=== PATIENT | male | born 1965 | race Caucasian/White ===

== ENCOUNTER → 2017-09-26 | Outpatient (CLI) | payer OTHER ==
--- NOTE | 2017-09-27 14:40 | XR ---
EXAMINATION TYPE: XR lumbosacral spine min 4V DATE OF EXAM: 09/26/2017 COMPARISON: NONE HISTORY: Lumbago TECHNIQUE: Five-view lumbar spine FINDINGS: There 5 lumbar-type vertebral bodies. The pedicles are intact. Disc heights are preserved. Vertebral body heights are preserved. Alignment is normal. Facets are unremarkable. No spondylolytic defects are evident. Vascular calcification is within the aorta. IMPRESSION: 1. Normal 5 view lumbar spine
--- NOTE | 2017-09-27 14:53 | XR ---
EXAMINATION TYPE: XR cervical spine comp DATE OF EXAM: 09/26/2017 COMPARISON: NONE HISTORY: Cervicalgia TECHNIQUE: 5 view cervical spine supplemented with the submental vertex view FINDINGS: The odontoid is visualized appears normal. Examination is limited. The prevertebral space i s normal. Mild diffuse narrowing of disc height is preserved. Alignment is normal. Posterior spinal l amellar line is intact. There is limitation on evaluation of the foramen due to degree of rotation. IMPRESSION: 1. Mild diffuse degenerative changes within the cervical spine.
== END | disposition home or self-care (01) ==
LOC: RADXRMAIN 16:22
PROVIDERS: ATTEND Family Medicine
DX: M47.812 Spondylosis without myelopathy or radiculopathy, cervical region (principal); M54.5 Low back pain
CPT/HCPCS: 72050; 72110

== ENCOUNTER → 2017-12-29 | Outpatient (CLI) | payer OTHER ==
[2017-12-29 16:58] LABS: Basophils # (A) 0.1 k/uL (0-0.2); Basophils % (A) 1 %; Eosinophils # (A) 0.3 k/uL (0-0.7); Eosinophils % (A) 3 %; HCT 49.2 % (39.0-53.0); HGB 16.8 gm/dL (13.0-17.5); Lymphocytes # (A) 2.4 k/uL (1.0-4.8); Lymphocytes % (A) 26 %; MCHC 34.1 g/dL (31.0-37.0); Mean Platelet Volume 6.8; Monocytes # (A) 0.3 k/uL (0-1.0); Monocytes % (A) 4 %; Neutrophils # (A) 5.8 k/uL (1.3-7.7); Neutrophils % (A) 64 %; Platelet Count 240 k/uL (150-450); RBC 5.59 m/uL (4.30-5.90); RDW 13.7 % (11.5-15.5); WBC 8.9 k/uL (3.8-10.6)
[2017-12-29 18:50] LABS: Erythrocyte Sedimentation Rate 3 mm/hr (0-15)
[2017-12-30 00:37] LABS: Rheumatoid Factor 6 IU/mL (0-15)
--- NOTE | 2017-12-31 12:52 | CT ---
EXAMINATION TYPE: CT chest wo con DATE OF EXAM: 12/29/2017 COMPARISON: NONE HISTORY: Patient complains of history of COPD. CT DLP: 581 mGycm. Automated Exposure Control for Dose Reduction was Utilized. TECHNIQUE: CT scan of the thorax is performed without IV contrast. FINDINGS: LUNGS: There is a solitary calcified benign pulmonary nodule within the right lower lobe on series 4 image 30 measuring 2 mm. Multifocal pleural thickening is very mild measuring up to 3 mm seen on seri es 3 and series 4 images 34, 28, 27, 26, 24, and 23 on the right as well as a 2 mm subpleural pulmona ry nodule in the left lower lobe on series 4 image 35. No calcified pleural plaques are appreciated. No CT evidence to suggest mesothelioma. No focal consolidation. There is no pleural effusion or pneum othorax seen. The tracheobronchial tree is patent. MEDIASTINUM: Lack of IV contrast is noted to limit evaluation for mediastinal and especially hilar ad enopathy. Fluid is present within the aortic recess. There are moderate to severe three-vessel hoffman ry artery calcifications. There are no definitive greater than 1 cm hilar or mediastinal lymph nodes. No cardiomegaly or pericardial effusion is seen. OTHER: No additional significant abnormality is seen. Mild multilevel degenerative change of the tho racic spine is seen. IMPRESSION: 1. Very mild multifocal pleural thickening likely related to patient's known asbestos exposure withou t CT evidence of mesothelioma. Surveillance is recommended with CT thorax in 12 months as there is an additional 2 mm left basilar solid subpleural pulmonary nodule. 2. Solitary calcified benign granuloma. 3. Moderate to severe three-vessel coronary artery atherosclerosis, a marker of coronary artery disea se.
[2018-01-01 15:09] LABS: Alt. alternata IgE Class CLASS 0; Alternaria alternata IgE <0.35 kU/L (<0.35); Asperg. fumagatus IgE <0.35 kU/L (<0.35); Asperg. fumagatus IgE Class CLASS 0; Bermuda Grass IgE <0.35 kU/L (<0.35); Birch(Com.Silvr) IgE <0.35 kU/L (<0.35); Birch(Com.Silvr) IgE Class CLASS 0; Cat Epith & Dander IgE <0.35 kU/L (<0.35); Cat Epith & Dander IgE Class CLASS 0; Clad herbarum IgE <0.35 kU/L (<0.35); Cockroach IgE <0.35 kU/L (<0.35); Cottonwood IgE <0.35 kU/L (<0.35); Dermato. Pteronyssinus IgE <0.35 kU/L (<0.35); Dermato. farinae IgE <0.35 kU/L (<0.35); Dermato. farinae IgE Class CLASS 0; Dog Dander IgE <0.35 kU/L (<0.35); Elm IgE <0.35 kU/L (<0.35); Maple (Box Elder) IgE <0.35 kU/L (<0.35); Maple (Box Elder) IgE Class CLASS 0; Mountain Cedar IgE <0.35 kU/L (<0.35); Mountain Cedar IgE Class CLASS 0; Mouse Urine IgE Class CLASS 0; Nettle IgE <0.35 kU/L (<0.35); Nettle IgE Class CLASS 0; Oak IgE <0.35 kU/L (<0.35); Penicillium notatum IgE Class CLASS 0; Rough Marshelder IgE <0.35 kU/L (<0.35); Rough Marshelder IgE Class CLASS 0; Timothy Grass IgE <0.35 kU/L (<0.35); White Ash IgE Class CLASS 0
== END | disposition home or self-care (01) ==
LOC: RADCTMAIN 16:09
PROVIDERS: ATTEND Internal Medicine Pulmonary Disease
DX: J92.9 Pleural plaque without asbestos (principal); J84.10 Pulmonary fibrosis, unspecified; R05 Cough; R06.02 Shortness of breath; I25.10 Atherosclerotic heart disease of native coronary artery without angina pectoris; R91.1 Solitary pulmonary nodule; Z77.090 Contact with and (suspected) exposure to asbestos
CPT/HCPCS: 36415; 71250; 82103; 82104; 82785; 85025; 85652; 86001; 86003; 86038; 86431; 86606; 86609

== ENCOUNTER 2018-04-16 10:05 | Inpatient (IN) | payer OTHER ==
[~2018-04-16 10:05] MED LIST: ALPRAZolam 0.25 MG TAB PO PRN; ALPRAZolam 0.5 MG TAB PO PRN; ASPIRIN 325 MG TAB PO STA; ATORVASTATIN 80 MG TAB PO STA; NITROGLYCERIN SL TABS 0.4 MG TAB SUBLINGUAL PRN; SODIUM CHLORIDE 0.9% 1,000 ML in EMPTY BAG 1 BAG IV ONE
[2018-04-16] MEDS ORDERED: SODIUM CHLORIDE 0.9% 1,000 ML IV ONE ×2 (10:26→10:33)
[2018-04-16 10:54] LABS: Basophils # (A) 0.1 k/uL (0-0.2); Basophils % (A) 1 %; Eosinophils # (A) 0.2 k/uL (0-0.7); Eosinophils % (A) 3 %; HCT 49.9 % (39.0-53.0); HGB 16.8 gm/dL (13.0-17.5); Lymphocytes # (A) 2.1 k/uL (1.0-4.8); Lymphocytes % (A) 25 %; MCHC 33.7 g/dL (31.0-37.0); MCV 88.9 fL (80.0-100.0); Mean Platelet Volume 6.9; Monocytes # (A) 0.4 k/uL (0-1.0); Monocytes % (A) 5 %; Neutrophils # (A) 5.3 k/uL (1.3-7.7); Neutrophils % (A) 66 %; Platelet Count 242 k/uL (150-450); RBC 5.61 m/uL (4.30-5.90); RDW 13.4 % (11.5-15.5); WBC 8.1 k/uL (3.8-10.6)
[2018-04-16] MEDS: MIDAZOLAM 2 MG/2 ML VIAL IVP ONE ×2 (11:01→11:05)
[2018-04-16] MEDS ORDERED: LIDOCAINE 1% INJ 10MG/ML (20 ML MDV) SQ ONE (11:02)
[2018-04-16] MEDS: VERAPAMIL SYRINGE (5 MG/10 ML) INTRAARTER ONE ×2 (11:03→11:19)
[2018-04-16 11:05] LABS: Anion Gap 11 mmol/L; Blood Urea Nitrogen 14 mg/dL (9-20); Calcium 9.9 mg/dL (8.4-10.2); Carbon Dioxide 24 mmol/L (22-30); Chloride 102 mmol/L (98-107); Glucose 338 mg/dL (74-99); Potassium 4.7 mmol/L (3.5-5.1); Sodium 137 mmol/L (137-145)
[2018-04-16] MEDS ORDERED: IOPAMIDOL-370 125ML BTL INJ ONE (11:19)
[2018-04-16] MEDS ORDERED: RX INFO: IV CONTRAST WAS GIVEN 1 EACH MISC MISCELLANE PRN ×2 (11:28→14:08)
[2018-04-16] MEDS ORDERED: SODIUM CHLORIDE 0.9% 1,000 ML IV SCH (11:30)
--- NOTE | 2018-04-16 12:16 | LTR ---
Date of Service: April 16, 2018 RE" EneidaGopi Dear Dr. Cervantes; Mr. Gopi Monique underwent today heart catheterization and that revealed calcified right and left coronary systems with severe triple-vessel coronary artery disease. Giving his anatomy, I did recommend proceeding with coronary artery bypass grafting. I want to thank you for allowing us to participate in his care and please do not hesitate to call if you have any question or concern. Sincerely, Cb Suh MD MMEFE / DAMARISN: [id number] /
--- NOTE | 2018-04-16 12:22 | CC ---
CARDIAC CATHETERIZATION REPORT DATE OF SERVICE: April 16, 2018 PERFORMING PHYSICIAN: Cb Suh MD, concrete floater. PROCEDURE PERFORMED: 1. Selective right and left coronary angiogram. 2. Left heart catheterization. INDICATION: This is a very pleasant 53-year-old gentleman with known history of chronic obstructive pulmonary disease as well as diabetes who was experiencing exertional dyspnea. He underwent a myocardial perfusion imaging stress test and that came in to be unremarkable for ischemia, but the symptoms of dyspnea was getting worse and it was concerning for angina. Because of that, a heart catheterization was advised. APPROACH: Right radial artery. COMPLICATION: None. LEVEL OF SEDATION: Moderate with sedation length of 17 minutes. PROCEDURE DESCRIPTION: After obtaining an informed consent, the patient was brought to the cardiac catheter builder. The right radial artery was cannulated using micropuncture technique, the micropuncture wire passed easily then I placed a 6-[place] sheath in the right radial artery. After that, I did selective right and left coronary angiogram using JR4 and JL3.5 catheters. Left heart catheterization was performed using the JR4 catheter which flipped into the LV then I did pullback across the aortic valve. The procedure was completed without any complication. SELECTIVE CORONARY ANGIOGRAM: 1. The right coronary artery is a calcified artery. The proximal RCA has mild disease only. The mid RCA has a long tubular lesion appeared to be in the range of 80% to 90%. The RCA distally is diffusely diseased up to about 50% just before the bifurcation into PDA and PLV branches. 2. The left main is calcified with mild disease only. It bifurcates into left circumflex and left anterior descending artery. 3. The left circumflex is a large caliber vessel and it is a nondominant vessel. The ostial left circumflex appeared to be diseased in the range of 70%. The proximal circumflex has 2 discrete lesions, one in the range of 70% to 80% and one in the range of 80% to 90%. The 80% to 90% lesion is involving OM branch of the left circumflex which is a large caliber vessel and the circumflex continued after that as a small-caliber vessel in the AV groove. 4. The left anterior descending artery: The proximal LAD has a long tubular lesion in the range of 80% to 90%. It is involving the first and second diagonal branches. The mid LAD and distal LAD appeared to be angiographically normal. HEMODYNAMICS: The left ventricular end-diastolic pressure was 12 mmHg. No significant gradient was identified across the aortic valve. CONCLUSION: 1. Calcified right and left coronary systems. 2. Severe triple-vessel coronary artery disease. POSTPROCEDURE MANAGEMENT: Giving the heavily calcified right and left coronary system as well as anatomy with a long tubular lesion, I did recommend proceeding with coronary artery bypass grafting. I am going to consult surgeon to evaluate the patient for that. The patient's parts professional, Dr. Lainey Majano was informed who referred the patient to see me. His primary care physician Dr. Shahid Cervantes also will be informed. He is out of the office today. MMODL / IJN: [id number] /
[2018-04-16 14:17] LABS: Appearance,Urine Clear (Clear); Bilirubin,Urine Negative (Negative); Blood,Urine Negative (Negative); Color,Urine Light Yellow; Glucose,Urine (UA) 4+ (Negative); Ketones,Urine Negative (Negative); Leukocyte Esterase,Urine Negative (Negative); Nitrite,Urine Negative (Negative); PH, Urine 6.5 (5.0-8.0); Protein,Urine Negative (Negative); Specific Gravity,Urine 1.041 (1.001-1.035); Urobilinogen,Urine <2.0 mg/dL (<2.0)
--- NOTE | 2018-04-16 14:34 | P.GSCN ---
<Triny Collado - Last Filed: 04/16/18 15:23> History of Present Illness Consult date: 04/16/18 Reason for Consult: Severe triple vessel coronary artery disease, surgical recommendations Requesting physician: Cb Suh History of present illness: This is a 53-year-old active gentleman who follows with Dr. Brandon Cervantes on an outpatient basis. He has a previous medical history of diabetes, hyperlipidemia, previous tobacco dependence, COPD with known asbestos exposure, BPH, frequent kidney stones, and family history of coronary artery disease. He follows with Dr. Maya Majano for COPD and asbestosis, he has chronic exertional dyspnea without chest pain or discomfort, he had a computed tomography scan of the chest demonstrating chronic lung disease with evidence of severe triple vessel calcifications. Dr. Majano referred the patient to Dr. Suh. The patient had a stress test demonstrating no ischemia, however since his shortness of breath could be related to severe CAD Dr. Suh recommended heart catheterization which was completed this morning. The catheterization demonstrated severely calcified right and left systems with mid RCA stenosis 80- 90%, proximal LAD stenosis 80% with mid LAD stenosis 20%, and ostial left circumflex with 70% stenosis and proximal circumflex stenosis 90%. Cardiothoracic surgery was consulted regarding surgical revascularization recommendations. Review of Systems Review of systems was completed and was negative except as noted. 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 History of Any Multi-Drug Resistant Organisms: None Reported Past Surgical History: Adenoidectomy, Orthopedic Surgery, Tonsillectomy Additional Past Surgical History / Comment(s): kidney stone removed, rhinoplasty , lithotripsy x3 Past Anesthesia/Blood Transfusion Reactions: No Reported Reaction Past Psychological History: No Psychological Hx Reported Smoking Status: Former smoker Past Alcohol Use History: None Reported Past Drug Use History: Prescription Drug Abuse Additional Drug Use History / Comment(s): Prescription drug abuse with opiates per his - Past Family History Father Family Medical History: Coronary Artery Disease (CAD), Hyperlipidemia, Hypertension Medications and Allergies Home Medications Medication Instructions Recorded Confirmed Type Acetaminophen [Tylenol Extra 1,000 mg PO QAM 04/11/18 04/16/18 History Strength] Aspirin [Adult Low Dose Aspirin EC] 81 mg PO QAM 04/11/18 04/16/18 History Cardio-Complete 1 tab PO QAM 04/11/18 04/16/18 History Cinnamon Bark [Cinnamon] 1,000 mg PO QAM 04/11/18 04/16/18 History Cyanocobalamin (Vitamin B-12) 1,000 mcg PO QAM 04/11/18 04/16/18 History [Vitamin B-12] Cyclobenzaprine [Flexeril] 10 mg PO QAM 04/11/18 04/16/18 History Fluticasone/Vilanterol [Breo 1 inhalation PO QAM 04/11/18 04/16/18 History Ellipta 100-25 Mcg Inhaler] Loratadine [Claritin] 10 mg PO QAM 04/11/18 04/16/18 History Montelukast [Singulair] 10 mg PO QAM 04/11/18 04/16/18 History Tamsulosin HCl [Flomax] 0.4 mg PO QAM 04/11/18 04/16/18 History Allergies Allergy/AdvReac Type Severity Reaction Status Date / Time No Known Allergies Allergy Verified 04/11/18 08:17 Surgical - Exam Vital Signs Temp Pulse Resp BP Pulse Ox 97.7 F 75 16 157/99 97 04/16/18 10:31 04/16/18 10:31 04/16/18 10:31 04/16/18 10:31 04/16/18 10:31 - General well developed, well nourished, no distress, no pain - Eyes PERRL, normal ocular movement - ENT no hearing loss - Neck no masses, no bruits, trachea midline - Respiratory Lungs sounds diminished bilaterally. Respirations even, nonlabored. Currently on room air with oxygen saturation 96%. No chest wall deformities present. - Cardiovascular S1, S2 present. Regular rate and rhythm, social-telemetry. Palpable peripheral pulses bilaterally. No edema present. No calf pain or tenderness noted. No varicosities noted. Right radial heart catheterization site Tband in place. - Abdomen Abdomen: soft, non tender, bowel sounds - Genitourinary Deferred - Rectum Deferred - Integumentary no rash, no growths, no abnormal pigmentation - Neurologic normal coordination, normal sensation - Psychiatric oriented to time, oriented to person, oriented to place, speech is normal, memory intact Results - Labs 10/22/18 10:30 04/16/18 10:30 Abnormal Lab Results - Last 24 Hours (Table) 04/16/18 Range/Units 10:30 Glucose 338 H (74-99) mg/dL Diabetes panel 04/16/18 Range/Units 10:30 Sodium 137 (137-145) mmol/L Potassium 4.7 (3.5-5.1) mmol/L Chloride 102 (98-107) mmol/L Carbon Dioxide 24 (22-30) mmol/L BUN 14 (9-20) mg/dL Creatinine 0.85 (0.66-1.25) mg/dL Glucose 338 H (74-99) mg/dL Calcium 9.9 (8.4-10.2) mg/dL Calcium panel 04/16/18 Range/Units 10:30 Calcium 9.9 (8.4-10.2) mg/dL Pituitary panel 04/16/18 Range/Units 10:30 Sodium 137 (137-145) mmol/L Potassium 4.7 (3.5-5.1) mmol/L Chloride 102 (98-107) mmol/L Carbon Dioxide 24 (22-30) mmol/L BUN 14 (9-20) mg/dL Creatinine 0.85 (0.66-1.25) mg/dL Glucose 338 H (74-99) mg/dL Calcium 9.9 (8.4-10.2) mg/dL Adrenal panel 04/16/18 Range/Units 10:30 Sodium 137 (137-145) mmol/L Potassium 4.7 (3.5-5.1) mmol/L Chloride 102 (98-107) mmol/L Carbon Dioxide 24 (22-30) mmol/L BUN 14 (9-20) mg/dL Creatinine 0.85 (0.66-1.25) mg/dL Glucose 338 H (74-99) mg/dL Calcium 9.9 (8.4-10.2) mg/dL - Imaging Chest x-ray: pending EKG: pending Additional studies: Heart catheterization films reviewed. Assessment and Plan (1) Coronary artery disease Current Visit: Yes Status: Chronic Code(s): I25.10 - ATHSCL HEART DISEASE OF [place] CORONARY ARTERY W/O ANG PCTRS SNOMED Code(s): 84690988 (2) COPD (chronic obstructive pulmonary disease) Current Visit: Yes Status: Chronic Code(s): J44.9 - CHRONIC OBSTRUCTIVE PULMONARY DISEASE, UNSPECIFIED SNOMED Code(s): 19034904 (3) Diabetes mellitus Current Visit: Yes Status: Chronic Code(s): E11.9 - TYPE 2 DIABETES MELLITUS WITHOUT COMPLICATIONS SNOMED Code(s): 60279403 (4) Tobacco dependence in remission Current Visit: No Status: Resolved Code(s): F17.201 - NICOTINE DEPENDENCE, UNSPECIFIED, IN REMISSION SNOMED Code(s): 396529727 (5) BPH (benign prostatic hyperplasia) Current Visit: Yes Status: Chronic Code(s): N40.0 - BENIGN PROSTATIC HYPERPLASIA WITHOUT LOWER URINRY TRACT SYMP SNOMED Code(s): 454020961 (6) Hyperlipidemia Current Visit: Yes Status: Chronic Code(s): E78.5 - HYPERLIPIDEMIA, UNSPECIFIED SNOMED Code(s): 09903623 (11) Family history of coronary artery disease Current Visit: Yes Status: Chronic Code(s): Z82.49 - FAMILY HX OF [place] HEART DIS AND OTH DIS OF THE CIRC SYS SNOMED Code(s): 612830712 Plan: The patient was seen and examined in the extended stay unit with Dr. Loredo. Chart/diagnostics as well as cardiac catheterization films were reviewed in detail. The patient is currently chest pain-free. We offered the patient coronary artery bypass graft surgery. The usual perioperative course was discussed in detail with the patient and his , all questions were answered, and the patient consented to open heart surgery. They would like to get the surgery done as quickly as possible as they live quite a distance from the hospital. Preoperative testing has been ordered. We will tentatively plan surgical myocardial revascularization on 04/25/2018 with left internal mammary artery, left radial artery, endovascular vein harvesting to be performed by Dr. Flores pending results of preoperative testing. The patient and his were agreeable to this plan. Dr. Suh was updated and is agreeable as well. The patient will be admitted to the hospital and we will continue to monitor his progress over the next couple days. He should have maximal medical therapy with aspirin, statin, beta blockers. Thank you Dr. Suh for this consult. We look forward to working with you in the care of your patient. Time with Patient: Greater than 30 <Jorge Flores - Last Filed: 04/18/18 16:39> Surgical - Exam Vital Signs Temp Pulse Resp BP Pulse Ox 97.7 F 75 16 157/99 97 04/16/18 10:31 04/16/18 10:31 04/16/18 10:31 04/16/18 10:31 04/16/18 10:31 Results - Labs 04/18/18 14:55 04/18/18 14:55 Abnormal Lab Results - Last 24 Hours (Table) 04/17/18 04/17/18 04/17/18 Range/Units 05:35 16:48 21:00 RBC (4.30-5.90) m/uL Hgb (13.0-17.5) gm/dL Hct (39.0-53.0) % INR (<1.2) APTT (22.0-30.0) sec ABG pCO2 (35-45) mmHg ABG pO2 (83-108) mmHg ABG HCO3 (21-25) mmol/L ABG Total CO2 (19-24) mmol/L ABG O2 Saturation (94-97) % ABG Hematocrit (34.0-46.0) % ABG Sodium (135-146) mmol/L ABG Potassium (3.4-4.5) mmol/L ABG Ionized Calcium (4.5-5.3) mg/dL ABG Glucose (75-99) mg/dL ABG Lactic Acid (0.5-1.6) mmol/L Hemoglobin (13.0-17.5) gm/dL Sodium (137-145) mmol/L Carbon Dioxide (22-30) mmol/L Creatinine (0.66-1.25) mg/dL Glucose (74-99) mg/dL POC Glucose (mg/dL) 291 H 226 H (75-99) mg/dL Calcium (8.4-10.2) mg/dL Magnesium (1.6-2.3) mg/dL Alkaline Phosphatase (38-126) U/L Total Protein (6.3-8.2) g/dL Albumin (3.5-5.0) g/dL Arterial Blood Potassium (3.4-4.5) mmol/L Arterial Blood Glucose (75-99) mg/dL Crossmatch See Detail 04/18/18 04/18/18 04/18/18 Range/Units 05:26 05:42 08:44 RBC (4.30-5.90) m/uL Hgb (13.0-17.5) gm/dL Hct (39.0-53.0) % INR (<1.2) APTT (22.0-30.0) sec ABG pCO2 (35-45) mmHg ABG pO2 (83-108) mmHg ABG HCO3 (21-25) mmol/L ABG Total CO2 26 H (19-24) mmol/L ABG O2 Saturation 97.6 H (94-97) % ABG Hematocrit (34.0-46.0) % ABG Sodium (135-146) mmol/L ABG Potassium (3.4-4.5) mmol/L ABG Ionized Calcium (4.5-5.3) mg/dL ABG Glucose 232 H (75-99) mg/dL ABG Lactic Acid (0.5-1.6) mmol/L Hemoglobin (13.0-17.5) gm/dL Sodium 135 L (137-145) mmol/L Carbon Dioxide 21 L (22-30) mmol/L Creatinine (0.66-1.25) mg/dL Glucose 285 H (74-99) mg/dL POC Glucose (mg/dL) 261 H (75-99) mg/dL Calcium (8.4-10.2) mg/dL Magnesium (1.6-2.3) mg/dL Alkaline Phosphatase (38-126) U/L Total Protein 6.0 L (6.3-8.2) g/dL Albumin 3.4 L (3.5-5.0) g/dL Arterial Blood Potassium (3.4-4.5) mmol/L Arterial Blood Glucose 232 H (75-99) mg/dL Crossmatch 04/18/18 04/18/18 04/18/18 Range/Units 09:55 10:45 11:14 RBC (4.30-5.90) m/uL Hgb (13.0-17.5) gm/dL Hct (39.0-53.0) % INR (<1.2) APTT (22.0-30.0) sec ABG pCO2 (35-45) mmHg ABG pO2 116 H >420 H 315 H (83-108) mmHg ABG HCO3 26 H (21-25) mmol/L ABG Total CO2 26 H 27 H (19-24) mmol/L ABG O2 Saturation 98.4 H 100.0 H 100.0 H (94-97) % ABG Hematocrit 31 L 33 L (34.0-46.0) % ABG Sodium 130 L 134 L (135-146) mmol/L ABG Potassium 5.0 H (3.4-4.5) mmol/L ABG Ionized Calcium 4.2 L 4.3 L (4.5-5.3) mg/dL ABG Glucose 208 H 233 H 206 H (75-99) mg/dL ABG Lactic Acid 1.8 H 2.0 H (0.5-1.6) mmol/L Hemoglobin 10.2 L 10.7 L (13.0-17.5) gm/dL Sodium (137-145) mmol/L Carbon Dioxide (22-30) mmol/L Creatinine (0.66-1.25) mg/dL Glucose (74-99) mg/dL POC Glucose (mg/dL) (75-99) mg/dL Calcium (8.4-10.2) mg/dL Magnesium (1.6-2.3) mg/dL Alkaline Phosphatase (38-126) U/L Total Protein (6.3-8.2) g/dL Albumin (3.5-5.0) g/dL Arterial Blood Potassium 5.0 H (3.4-4.5) mmol/L Arterial Blood Glucose 208 H 233 H 206 H (75-99) mg/dL Crossmatch 04/18/18 04/18/18 04/18/18 Range/Units 11:47 12:17 12:55 RBC (4.30-5.90) m/uL Hgb (13.0-17.5) gm/dL Hct (39.0-53.0) % INR (<1.2) APTT (22.0-30.0) sec ABG pCO2 (35-45) mmHg ABG pO2 384 H 417 H 412 H (83-108) mmHg ABG HCO3 26 H 26 H 27 H (21-25) mmol/L ABG Total CO2 27 H 27 H 28 H (19-24) mmol/L ABG O2 Saturation 99.9 H 100.0 H 100.0 H (94-97) % ABG Hematocrit 33 L 33 L 31 L (34.0-46.0) % ABG Sodium 134 L 134 L (135-146) mmol/L ABG Potassium (3.4-4.5) mmol/L ABG Ionized Calcium 4.3 L 4.4 L 4.2 L (4.5-5.3) mg/dL ABG Glucose 199 H 197 H 188 H (75-99) mg/dL ABG Lactic Acid 2.1 H 1.9 H (0.5-1.6) mmol/L Hemoglobin 10.9 L 10.8 L 10.0 L (13.0-17.5) gm/dL Sodium (137-145) mmol/L Carbon Dioxide (22-30) mmol/L Creatinine (0.66-1.25) mg/dL Glucose (74-99) mg/dL POC Glucose (mg/dL) (75-99) mg/dL Calcium (8.4-10.2) mg/dL Magnesium (1.6-2.3) mg/dL Alkaline Phosphatase (38-126) U/L Total Protein (6.3-8.2) g/dL Albumin (3.5-5.0) g/dL Arterial Blood Potassium (3.4-4.5) mmol/L Arterial Blood Glucose 199 H 197 H 188 H (75-99) mg/dL Crossmatch 04/18/18 04/18/18 04/18/18 Range/Units 13:50 14:55 14:55 RBC 3.66 L (4.30-5.90) m/uL Hgb 11.0 L D (13.0-17.5) gm/dL Hct 32.2 L (39.0-53.0) % INR (<1.2) APTT (22.0-30.0) sec ABG pCO2 (35-45) mmHg ABG pO2 111 H (83-108) mmHg ABG HCO3 26 H (21-25) mmol/L ABG Total CO2 27 H (19-24) mmol/L ABG O2 Saturation 98.5 H (94-97) % ABG Hematocrit 33 L (34.0-46.0) % ABG Sodium (135-146) mmol/L ABG Potassium (3.4-4.5) mmol/L ABG Ionized Calcium 3.6 L (4.5-5.3) mg/dL ABG Glucose 164 H (75-99) mg/dL ABG Lactic Acid (0.5-1.6) mmol/L Hemoglobin 10.6 L (13.0-17.5) gm/dL Sodium (137-145) mmol/L Carbon Dioxide (22-30) mmol/L Creatinine 0.61 L (0.66-1.25) mg/dL Glucose 112 H (74-99) mg/dL POC Glucose (mg/dL) (75-99) mg/dL Calcium 7.8 L (8.4-10.2) mg/dL Magnesium 2.4 H (1.6-2.3) mg/dL Alkaline Phosphatase 36 L (38-126) U/L Total Protein 4.5 L (6.3-8.2) g/dL Albumin 2.6 L (3.5-5.0) g/dL Arterial Blood Potassium (3.4-4.5) mmol/L Arterial Blood Glucose 164 H (75-99) mg/dL Crossmatch 04/18/18 04/18/18 04/18/18 Range/Units 14:55 14:56 15:17 RBC (4.30-5.90) m/uL Hgb (13.0-17.5) gm/dL Hct (39.0-53.0) % INR 1.2 H (<1.2) APTT 31.2 H (22.0-30.0) sec ABG pCO2 50 H (35-45) mmHg ABG pO2 (83-108) mmHg ABG HCO3 28 H (21-25) mmol/L ABG Total CO2 30 H (19-24) mmol/L ABG O2 Saturation (94-97) % ABG Hematocrit (34.0-46.0) % ABG Sodium (135-146) mmol/L ABG Potassium (3.4-4.5) mmol/L ABG Ionized Calcium (4.5-5.3) mg/dL ABG Glucose (75-99) mg/dL ABG Lactic Acid (0.5-1.6) mmol/L Hemoglobin (13.0-17.5) gm/dL Sodium (137-145) mmol/L Carbon Dioxide (22-30) mmol/L Creatinine (0.66-1.25) mg/dL Glucose (74-99) mg/dL POC Glucose (mg/dL) 112 H (75-99) mg/dL Calcium (8.4-10.2) mg/dL Magnesium (1.6-2.3) mg/dL Alkaline Phosphatase (38-126) U/L Total Protein (6.3-8.2) g/dL Albumin (3.5-5.0) g/dL Arterial Blood Potassium (3.4-4.5) mmol/L Arterial Blood Glucose (75-99) mg/dL Crossmatch 04/18/18 Range/Units 15:58 RBC (4.30-5.90) m/uL Hgb (13.0-17.5) gm/dL Hct (39.0-53.0) % INR (<1.2) APTT (22.0-30.0) sec ABG pCO2 (35-45) mmHg ABG pO2 (83-108) mmHg ABG HCO3 (21-25) mmol/L ABG Total CO2 (19-24) mmol/L ABG O2 Saturation (94-97) % ABG Hematocrit (34.0-46.0) % ABG Sodium (135-146) mmol/L ABG Potassium (3.4-4.5) mmol/L ABG Ionized Calcium (4.5-5.3) mg/dL ABG Glucose (75-99) mg/dL ABG Lactic Acid (0.5-1.6) mmol/L Hemoglobin (13.0-17.5) gm/dL Sodium (137-145) mmol/L Carbon Dioxide (22-30) mmol/L Creatinine (0.66-1.25) mg/dL Glucose (74-99) mg/dL POC Glucose (mg/dL) 113 H (75-99) mg/dL Calcium (8.4-10.2) mg/dL Magnesium (1.6-2.3) mg/dL Alkaline Phosphatase (38-126) U/L Total Protein (6.3-8.2) g/dL Albumin (3.5-5.0) g/dL Arterial Blood Potassium (3.4-4.5) mmol/L Arterial Blood Glucose (75-99) mg/dL Crossmatch Microbiology - Last 24 Hours (Table) 04/16/18 17:00 Nasal Screen MRSA/MSSA - Final Nasal Swab 04/16/18 14:00 Urine Culture - Final Urine,Voided Diabetes panel 04/18/18 04/18/18 Range/Units 05:26 14:55 Sodium 135 L 137 (137-145) mmol/L Potassium 4.4 3.7 (3.5-5.1) mmol/L Chloride 104 107 (98-107) mmol/L Carbon Dioxide 21 L 26 (22-30) mmol/L BUN 16 13 (9-20) mg/dL Creatinine 0.79 0.61 L (0.66-1.25) mg/dL Glucose 285 H 112 H (74-99) mg/dL Calcium 9.3 7.8 L (8.4-10.2) mg/dL AST 21 49 (17-59) U/L ALT 36 39 (21-72) U/L Alkaline Phosphatase 76 36 L (38-126) U/L Total Protein 6.0 L 4.5 L (6.3-8.2) g/dL Albumin 3.4 L 2.6 L (3.5-5.0) g/dL Calcium panel 04/18/18 04/18/18 Range/Units 05:26 14:55 Calcium 9.3 7.8 L (8.4-10.2) mg/dL Ionized Calcium Rigoberto 4.8 (4.5-5.3) mg/dL Albumin 3.4 L 2.6 L (3.5-5.0) g/dL Pituitary panel 04/18/18 04/18/18 Range/Units 05:26 14:55 Sodium 135 L 137 (137-145) mmol/L Potassium 4.4 3.7 (3.5-5.1) mmol/L Chloride 104 107 (98-107) mmol/L Carbon Dioxide 21 L 26 (22-30) mmol/L BUN 16 13 (9-20) mg/dL Creatinine 0.79 0.61 L (0.66-1.25) mg/dL Glucose 285 H 112 H (74-99) mg/dL Calcium 9.3 7.8 L (8.4-10.2) mg/dL Adrenal panel 04/18/18 04/18/18 Range/Units 05:26 14:55 Sodium 135 L 137 (137-145) mmol/L Potassium 4.4 3.7 (3.5-5.1) mmol/L Chloride 104 107 (98-107) mmol/L Carbon Dioxide 21 L 26 (22-30) mmol/L BUN 16 13 (9-20) mg/dL Creatinine 0.79 0.61 L (0.66-1.25) mg/dL Glucose 285 H 112 H (74-99) mg/dL Calcium 9.3 7.8 L (8.4-10.2) mg/dL Total Bilirubin 0.6 0.3 (0.2-1.3) mg/dL AST 21 49 (17-59) U/L ALT 36 39 (21-72) U/L Alkaline Phosphatase 76 36 L (38-126) U/L Total Protein 6.0 L 4.5 L (6.3-8.2) g/dL Albumin 3.4 L 2.6 L (3.5-5.0) g/dL Assessment and Plan Plan: The patient was seen and examined. I agree with the above assessment and plan. The patient is a 53 y/o male who presented to the hospital with exertional dyspnea. Cardiac catheterization reveals multi-vessel CAD. He appears to have targets amenable for bypass. Coronary artery bypass was recommended. The risks , benefits, and alternatives to the procedure were discussed with the patient. All of his questions were answered. The patient would prefer to have his surgery performed on this admission. We will complete the necessary pre- operative workup and schedule his surgery for 04/18/2018.
--- NOTE | 2018-04-16 16:17 | XR ---
EXAMINATION TYPE: XR chest 2V DATE OF EXAM: 04/16/2018 COMPARISON: CT thorax dated 12/29/2017 HISTORY: Presurgical clearance TECHNIQUE: Frontal and lateral views of the chest are obtained. FINDINGS: There is no focal air space opacity, pleural effusion, or pneumothorax seen. The cardiac silhouette size is within normal limits. The osseous structures are intact. IMPRESSION: No acute cardiopulmonary process. The known multifocal pleural thickening and 2 mm granu marianna are better visualized on CT.
[2018-04-16 16:54] LABS: Glucose,Whole Blood 325 mg/dL (75-99)
[2018-04-16 17:41] LABS: Basophils # (A) 0.1 k/uL (0-0.2); Basophils % (A) 1 %; Eosinophils # (A) 0.2 k/uL (0-0.7); Eosinophils % (A) 2 %; HCT 46.4 % (39.0-53.0); HGB 15.6 gm/dL (13.0-17.5); Lymphocytes % (A) 24 %; MCH 29.7 pg (25.0-35.0); MCHC 33.6 g/dL (31.0-37.0); MCV 88.5 fL (80.0-100.0); Mean Platelet Volume 7.1; Monocytes # (A) 0.4 k/uL (0-1.0); Monocytes % (A) 5 %; Neutrophils # (A) 5.7 k/uL (1.3-7.7); Neutrophils % (A) 68 %; Platelet Count 220 k/uL (150-450); RBC 5.25 m/uL (4.30-5.90); RDW 13.3 % (11.5-15.5); WBC 8.4 k/uL (3.8-10.6)
[2018-04-16] MEDS: INSULIN ASPART 100 UNIT/ML 1 ML 10 ML VIAL SQ SCH ×2 (17:53→21:28)
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
[2018-04-16 17:56] LABS: ALT 42 U/L (21-72); AST 19 U/L (17-59); Albumin 3.8 g/dL (3.5-5.0); Alkaline Phosphatase 83 U/L (38-126); Anion Gap 8 mmol/L; Blood Urea Nitrogen 13 mg/dL (9-20); Calcium 9.6 mg/dL (8.4-10.2); Carbon Dioxide 23 mmol/L (22-30); Chloride 104 mmol/L (98-107); Cholesterol 260 mg/dL (<200); Glucose 301 mg/dL (74-99); HDL Cholesterol 37 mg/dL (40-60); Magnesium 1.9 mg/dL (1.6-2.3); Potassium 4.2 mmol/L (3.5-5.1); Sodium 135 mmol/L (137-145); Total Bilirubin 0.4 mg/dL (0.2-1.3); Total Protein 6.3 g/dL (6.3-8.2); Triglycerides 404 mg/dL (<150)
[2018-04-16 18:00] LABS: Partial Thromboplastin Time 22.8 sec (22.0-30.0)
--- NOTE | 2018-04-16 19:35 | ECHOF ---
Referral Reason:assess LV, valves preop CABG MEASUREMENTS -------- HEIGHT: 165.1 cm WEIGHT: 79.4 kg BP: 137/79 IVSd: 1.3 cm (0.6 - 1.1) LVIDd: 4.4 cm (3.9 - 5.3) LVPWd: 1.0 cm (0.6 - 1.1) IVSs: 1.5 cm LVIDs: 3.2 cm LVPWs: 1.1 cm LAESV Index (A-L): 21.33 ml/m Ao Diam: 3.2 cm (2.0 - 3.7) AV Cusp: 1.8 cm (1.5 - 2.6) LA Diam: 3.3 cm (2.7 - 3.8) MV EXCURSION: 23.254 mm (> 18.000) MV EF SLOPE: 84 mm/s (70 - 150) EPSS: 0.8 cm MV E Dwight: 0.35 m/s MV DecT: 232 ms MV A Dwight: 0.57 m/s MV E/A Ratio: 0.62 RAP: 5.00 mmHg RVSP: 12.80 mmHg FINDINGS -------- Sinus rhythm. This was a techncally difficult study with suboptimal views, , Definity utilized for enhancement of i mages. The left ventricular size is normal. There is mild concentric left ventricular hypertrophy. Overa ll left ventricular systolic function is mild-moderately impaired with, an EF between 40 - 45 %. In feriorlateral Hypokinesis The right ventricle is normal in size. The left atrial size is normal. The right atrial size is normal. 1.5MG OF DEFINITY UTLIZED: 2 OR MORE WALL SEGMENTS NOT VISUALIZED. The aortic valve is trileaflet, and appears structurally normal. No aortic stenosis or regurgitation. Mild mitral regurgitation is present. Mild tricuspid regurgitation present. There is no evidence of pulmonary hypertension. The right v entricular systolic pressure, as measured by Doppler, is 12.80mmHg. There is no pulmonic regurgitation present. The aortic root size is normal. There is no pericardial effusion. CONCLUSIONS -------- 1. This was a techncally difficult study with suboptimal views, , Definity utilized for enhancement o f images. 2. The left ventricular size is normal. 3. Overall left ventricular systolic function is mild-moderately impaired with, an EF between 40 - 45 %. 4. Inferiorlateral Hypokinesis 5. The right ventricle is normal in size. 6. The left atrial size is normal. 7. The right atrial size is normal. 8. 1.5MG OF DEFINITY UTLIZED: 2 OR MORE WALL SEGMENTS NOT VISUALIZED. 9. The aortic valve is trileaflet, and appears structurally normal. No aortic stenosis or regurgitati on. 10. Mild mitral regurgitation is present. 11. Mild tricuspid regurgitation present. 12. There is no evidence of pulmonary hypertension. 13. The right ventricular systolic pressure, as measured by Doppler, is 12.80mmHg. 14. There is no pulmonic regurgitation present. 15. The aortic root size is normal. 16. There is no pericardial effusion. STEREOTYPER: Tiffanie Lazo RDCS
[2018-04-16] MEDS: HEPARIN SODIUM,PORCINE 5,000 UNIT/ML 1 ML VIAL SQ SCH (20:26)
[2018-04-16] MEDS: METOPROLOL TARTRATE 25 MG TAB PO SCH (20:26)
[2018-04-16] MEDS: MUPIROCIN 2% OINT 22 GM TUBE TOPICAL SCH (20:27)
[2018-04-16 20:56] LABS: Glucose,Whole Blood 299 mg/dL (75-99)
[2018-04-16] MEDS ORDERED: INSULIN DETEMIR 100 UNIT/ML 10 ML VIAL SQ SCH (21:00)
--- NOTE | 2018-04-17 03:05 | US ---
EXAMINATION TYPE: US carotid duplex BILAT DATE OF EXAM: 04/16/2018 COMPARISON: NONE CLINICAL HISTORY: Ankle Brachial Index (NURIS) . Pre op cardiac surgery EXAM MEASUREMENTS: RIGHT: Peak Systolic Velocity (PSV) cm/sec ----- Right CCA: 80.2 ----- Right ICA: 80.2 ----- Right ECA: 61.6 ICA/CCA ratio: 1.0 RIGHT: End Diastole cm/sec ----- Right CCA: 23.4 ----- Right ICA: 35.9 ----- Right ECA: 13.0 LEFT: Peak Systolic Velocity (PSV) cm/sec ----- Left CCA: 77.5 ----- Left ICA: 76.4 ----- Left ECA: 66.7 ICA/CCA ratio: 1.0 LEFT: End Diastole cm/sec ----- Left CCA: 24.5 ----- Left ICA: 31.1 ----- Left ECA: 21.8 VERTEBRALS (direction of flow): Right Vertebral: Antegrade Left Vertebral: Antegrade Rhythm: Normal No elevated velocities, no significant stenosis. IMPRESSION: There is antegrade flow in the vertebral arteries. The images and measurements suggest c lose to 0% stenosis in both internal carotid arteries. Criteria for Assigning % of Stenosis / Diameter reduction (Estimation based on the indirect measurements of the internal carotid artery velocities (ICA PSV). 1. Normal (no stenosis)=ICA PSV < 125 cm/s: ratio < 2.0: ICA EDV<40 cm/s. 2. Less than 50% stenosis=ICA PSV < 125 cm/s: ratio < 2.0: ICA EDV<40 cm/s. 3. 50 to 69% stenosis=ICA PSV of 125 to 230 cm/s: ration 2.0 ? 4.0: ICA EDV 40-100 cm/s. 4. Greater than 70% stenosis to near occlusion= ICA PSV > 230 cm/s: ratio > 4.0: ICA EDV > 100 cm/s. 5. Near occlusion= ICA PSV velocities may be low or undetectable: variable ratio and ICA EDV. 6. Total occlusion=unable to detect flow.
[2018-04-17 04:25] LABS: Hemoglobin A1C 11.9 % (4.0-6.0)
[2018-04-17 05:46] LABS: Hepatitis A Antibody IgM Non-Reactive (Non-Reactive); Hepatitis B Core IgM Non-Reactive (Non-Reactive)
[2018-04-17 05:53] LABS: Glucose,Whole Blood 288 mg/dL (75-99)
[2018-04-17] MEDS: INSULIN ASPART 100 UNIT/ML 1 ML 10 ML VIAL SQ SCH ×4 (06:14→22:04)
[2018-04-17] MEDS ORDERED: PANTOPRAZOLE 40 MG TABLET PO SCH (07:30)
[2018-04-17] MEDS: SYMBICORT 80-4.5 MCG INHALER INHALATION SCH ×2 (07:54→20:01)
[2018-04-17] MEDS: HEPARIN SODIUM,PORCINE 5,000 UNIT/ML 1 ML VIAL SQ SCH ×2 (08:13→22:04)
[2018-04-17] MEDS: CYCLOBENZAPRINE 10 MG TAB PO SCH (08:13)
[2018-04-17] MEDS: TAMSULOSIN 0.4 MG CAP.ER.24H PO SCH (08:13)
[2018-04-17] MEDS: MONTELUKAST 10 MG TAB PO SCH (08:13)
[2018-04-17] MEDS: METOPROLOL TARTRATE 25 MG TAB PO SCH ×2 (08:13→22:05)
[2018-04-17] MEDS: LORATADINE 10 MG TAB PO SCH (08:13)
[2018-04-17] MEDS: MUPIROCIN 2% OINT 22 GM TUBE TOPICAL SCH ×2 (08:21→22:05)
[2018-04-17] MEDS ORDERED: ATORVASTATIN 40 MG TAB PO ONE (08:30)
--- NOTE | 2018-04-17 08:55 | P.PN ---
Subjective Progress Note Date: 04/17/18 Principal diagnosis: Severe CAD This is a pleasant 53-year-old gentleman who I follow in the office as an outpatient with history of diabetes as well as COPD who was experiencing shortness of breath with exertion concerning for angina. He underwent heart catheterization yesterday and that revealed calcified right and left coronary systems with severe triple-vessel coronary artery disease. Surgery consult was placed for the evaluation for CABG and the patient is a scheduled to undergo CABG tomorrow. I'll follow-up with him today, April 172017, he remains asymptomatic from a cardiovascular standpoint overview. No chest pain or discomfort. The vital signs are stable. He underwent an echocardiogram and that revealed impaired LV function with EF between 40-45% with mild MR and mild TR. He remains on aspirin , and I would increase the dose of Lipitor to 80 mg daily, he is also on metoprolol. I would add JOURDAN inhibitor was a small dose of lisinopril to the current medical regimen in view of the cardiomyopathy. Down the line, he needs to be on Aldactone as well. Objective - Vital Signs Vital signs: Vital Signs Temp 97.9 F 04/17/18 08:32 Pulse 75 04/17/18 08:33 Resp 18 04/17/18 08:33 BP 122/80 04/17/18 08:32 Pulse Ox 96 04/17/18 08:32 Intake & Output 04/16/18 04/17/18 04/17/18 18:59 06:59 18:59 Intake Total 390 810 240 Output Total 400 Balance -10 810 240 Weight 79.5 kg 79.3 kg Intake: IV 200 810 Sodium Chloride 0.9% 1, 810 000 ml @ 100 mls/hr IV . Q10H BECKA Rx#:[id number] Intake, IV Titration 100 Amount Sodium Chloride 0.9% 1, 100 000 ml @ 100 mls/hr IV . Q10H BECKA Rx#:[id number] Oral 90 240 Output: Urine 400 Other: Voiding Method Toilet Urinal # Voids 1 - Constitutional General appearance: Present: no acute distress - Respiratory Respiratory: bilateral: CTA - Cardiovascular Rhythm: regular Heart sounds: normal: S1, S2 - Labs CBC & Chem 7: 04/16/18 17:11 04/16/18 17:11 Labs: Abnormal Lab Results - Last 24 Hours (Table) 04/16/18 04/16/18 04/16/18 Range/Units 10:30 14:00 16:52 Sodium (137-145) mmol/L Glucose 338 H (74-99) mg/dL POC Glucose (mg/dL) 325 H (75-99) mg/dL Hemoglobin A1c (4.0-6.0) % Triglycerides (<150) mg/dL Cholesterol (<200) mg/dL HDL Cholesterol (40-60) mg/dL Ur Specific [place] 1.041 H (1.001-1.035) Urine Glucose (UA) 4+ H (Negative) 04/16/18 04/16/18 04/16/18 Range/Units 17:11 17:11 20:53 Sodium 135 L (137-145) mmol/L Glucose 301 H (74-99) mg/dL POC Glucose (mg/dL) 299 H (75-99) mg/dL Hemoglobin A1c 11.9 H (4.0-6.0) % Triglycerides 404 H (<150) mg/dL Cholesterol 260 H (<200) mg/dL HDL Cholesterol 37 L (40-60) mg/dL Ur Specific [place] (1.001-1.035) Urine Glucose (UA) (Negative) 04/17/18 Range/Units 05:51 Sodium (137-145) mmol/L Glucose (74-99) mg/dL POC Glucose (mg/dL) 288 H (75-99) mg/dL Hemoglobin A1c (4.0-6.0) % Triglycerides (<150) mg/dL Cholesterol (<200) mg/dL HDL Cholesterol (40-60) mg/dL Ur Specific [place] (1.001-1.035) Urine Glucose (UA) (Negative) Microbiology - Last 24 Hours (Table) 04/16/18 17:00 Nasal Screen MRSA/MSSA - Preliminary Nasal Swab 04/16/18 14:00 Urine Culture - Preliminary Urine,Voided Assessment and Plan Assessment: Assessment #1 severe triple-vessel coronary artery disease #2 ischemic cardiomyopathy with an EF between 40-45% #3 diabetes type 2 #4 dyslipidemia Plan #1 continue the current medical regimen #2 add lisinopril to the current medical regimen #3 start the patient on jourdan inhibitor was lisinopril #4 the tentative plan for surgery is tomorrow. We will continue following up with the patient.
[2018-04-17] MEDS ORDERED: ATORVASTATIN 40 MG TAB PO SCH (09:00)
[2018-04-17] MEDS ORDERED: ACETAMINOPHEN TAB 500 MG TAB PO SCH (09:00)
[2018-04-17] MEDS ORDERED: NON-FORMULARY DRUG (Aspirin [Adult Low Dose Aspirin Ec] 81 MG) PO SCH (09:00)
[2018-04-17] MEDS ORDERED: ASPIRIN 325 MG TAB PO SCH (09:00)
[2018-04-17] MEDS ORDERED: LISINOPRIL 2.5 MG TAB PO SCH (09:00)
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
[2018-04-17 11:37] LABS: Glucose,Whole Blood 253 mg/dL (75-99)
--- NOTE | 2018-04-17 12:34 | P.HPIM ---
Review of Systems Constitutional: Reports as per HPI, Denies anorexia, Denies chills, Denies chronic headaches, Denies chronic pain, Denies daytime sleepiness, Denies fatigue, Denies fever, Denies lethargy, Denies malaise, Denies night sweats, Denies poor appetite, Denies sweats, Denies weakness, Denies weight gain, Denies weight loss Ears, nose, mouth and throat: Reports as per HPI, Denies ant. neck pain, Denies bleeding gums, Denies dental pain, Denies dysphagia, Denies epistaxis, Denies headache, Denies hoarseness, Denies mouth pain, Denies nasal congestion, Denies nasal discharge, Denies neck fullness/pressure, Denies neck lump, Denies nose pain, Denies odynophagia, Denies post-nasal drip, Denies sinus pain, Denies sinus pressure, Denies swelling in mouth, Denies swelling in throat, Denies sore throat, Denies vertigo, Denies voice changes Cardiovascular: Reports dyspnea on exertion Respiratory: Reports as per HPI Gastrointestinal: Reports as per HPI, Denies abdominal pain, Denies belching, Denies bloating, Denies BRBPR, Denies change in bowel habits, Denies coffee ground emesis, Denies constipation, Denies diarrhea, Denies dyspepsia, Denies early satiety, Denies excessive gas, Denies heartburn, Denies hematemesis, Denies hematochezia, Denies indigestion, Denies jaundice, Denies lactose intolerance, Denies loss of appetite, Denies melena, Denies nausea, Denies vomiting Genitourinary: Reports as per HPI Musculoskeletal: Reports as per HPI, Denies arm numbness/tingling, Denies atrophy, Denies fractures, Denies frequent falls, Denies gait dysfunction, Denies hot joints, Denies leg numbness/tingling, Denies limitation of motion, Denies loss of height, Denies low back pain, Denies morning stiffness, Denies muscle cramps, Denies muscle weakness, Denies myalgias, Denies neck pain, Denies neck stiffness, Denies prior amputations, Denies redness of joints, Denies shooting arm pain, Denies shooting leg pain Integumentary: Denies as per HPI, Denies acne, Denies boils, Denies brittle nails, Denies change in hair/nails, Denies color changes, Denies darkening of skin, Denies depigmentation, Denies dryness, Denies foot/leg ulcers, Denies growths, Denies hirsutism, Denies lesions, Denies onychomycosis, Denies pruritus , Denies rash, Denies sores, Denies striae, Denies unusual bruising, Denies wounds Neurological: Reports as per HPI, Denies aphasia, Denies ataxia, Denies balance difficulties, Denies burning pain, Denies change in mentation, Denies change in smell/taste, Denies change in speech, Denies confusion, Denies convulsions, Denies double vision, Denies gait dysfunction, Denies head injury, Denies headaches, Denies hearing difficulties, Denies lack of coordination, Denies loss of vision, Denies memory loss, Denies migraines, Denies motor disturbance, Denies numbness, Denies paralysis, Denies paresthesias, Denies seizures, Denies sensory deficit, Denies spasticity, Denies syncope, Denies tic, Denies tingling , Denies transient paralysis, Denies tremors, Denies vertigo, Denies weakness, Denies visual changes Endocrine: Reports as per HPI, Reports high blood sugars, Reports polyphagia, Denies cold intolerance, Denies deepening of the voice, Denies excessive sweating, Denies excessive thirst, Denies fatigue, Denies flushing, Denies heat intolerance, Denies increase in ring/shoe/hat size, Denies low blood sugars, Denies nocturia, Denies palpitations, Denies polydipsia, Denies polyuria, Denies proptosis, Denies recent glucocorticoid use, Denies thyroid mass, Denies weight change Hematologic/Lymphatic: Reports as per HPI Allergic/Immunologic: Reports as per HPI 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 History of Any Multi-Drug Resistant Organisms: None Reported Past Surgical History: Adenoidectomy, Orthopedic Surgery, Tonsillectomy Additional Past Surgical History / Comment(s): kidney stone removed, rhinoplasty , lithotripsy x3 Past Anesthesia/Blood Transfusion Reactions: No Reported Reaction Past Psychological History: No Psychological Hx Reported Smoking Status: Former smoker Past Alcohol Use History: None Reported Past Drug Use History: Prescription Drug Abuse Additional Drug Use History / Comment(s): Prescription drug abuse with opiates per his - Past Family History Father Family Medical History: Coronary Artery Disease (CAD), Hyperlipidemia, Hypertension Medications and Allergies Home Medications Medication Instructions Recorded Confirmed Type Acetaminophen [Tylenol Extra 1,000 mg PO QAM 04/11/18 04/16/18 History Strength] Aspirin [Adult Low Dose Aspirin EC] 81 mg PO QAM 04/11/18 04/16/18 History Cardio-Complete 1 tab PO QAM 04/11/18 04/16/18 History Cinnamon Bark [Cinnamon] 1,000 mg PO QAM 04/11/18 04/16/18 History Cyanocobalamin (Vitamin B-12) 1,000 mcg PO QAM 04/11/18 04/16/18 History [Vitamin B-12] Cyclobenzaprine [Flexeril] 10 mg PO QAM 04/11/18 04/16/18 History Fluticasone/Vilanterol [Breo 1 inhalation PO QAM 04/11/18 04/16/18 History Ellipta 100-25 Mcg Inhaler] Loratadine [Claritin] 10 mg PO QAM 04/11/18 04/16/18 History Montelukast [Singulair] 10 mg PO QAM 04/11/18 04/16/18 History Tamsulosin HCl [Flomax] 0.4 mg PO QAM 04/11/18 04/16/18 History Allergies Allergy/AdvReac Type Severity Reaction Status Date / Time No Known Allergies Allergy Verified 04/11/18 08:17 Physical Exam Vitals: Vital Signs Temp Pulse Pulse Resp BP Pulse Ox 04/17/18 12:00 97.6 F 71 16 130/84 97 04/17/18 11:07 75 18 04/17/18 08:33 75 18 04/17/18 08:32 97.9 F 75 18 122/80 96 04/17/18 03:59 97.5 F L 72 18 132/84 97 04/16/18 23:54 98.2 F 80 18 118/84 95 04/16/18 19:23 97.7 F 91 18 129/89 92 L 04/16/18 16:00 97.8 F 96 20 136/86 96 04/16/18 15:49 97.8 F 115 H 20 136/86 96 04/16/18 14:13 86 16 135/84 98 04/16/18 14:08 87 16 138/90 97 04/16/18 13:13 90 16 137/91 98 04/16/18 12:43 85 16 137/85 98 Intake and Output 04/16/18 04/17/18 04/17/18 22:59 06:59 14:59 Intake Total 848 617 6519 Output Total 425 Balance 533 078 8957 Intake: IV 810 Sodium Chloride 0.9% 1, 810 000 ml @ 100 mls/hr IV . Q10H [facility] Rx#:[id number] Intake, IV Titration 100 1200 Amount Sodium Chloride 0.9% 1, 100 1200 000 ml @ 100 mls/hr IV . Q10H [facility] Rx#:[id number] Oral 360 Output: Urine 425 Other: Voiding Method Toilet Urinal # Voids 1 1 1 Weight 79.5 kg 79.3 kg - Constitutional General appearance: cooperative, morbidly obese, no acute distress - EENT Eyes: anicteric sclerae, EOMI, PERRLA, normal appearance ENT: hearing grossly normal, NA/AT, normal oropharynx - Neck Neck: no lymphadenopathy, normal ROM, no other, no rigidity, no stridor, no thyromegaly - Respiratory Respiratory: bilateral: CTA, negative: rales, rhonchi, wheezing, prolonged expiration, prolonged inspiration - Gastrointestinal General gastrointestinal: hyperactive bowel sounds, normal bowel sounds, soft - Integumentary Integumentary: decreased turgor, normal - Neurologic Neurologic: CNII-XII intact - Musculoskeletal Musculoskeletal: gait normal, generalized weakness, strength equal bilaterally - Psychiatric Psychiatric: A&O x's 3, appropriate affect Results CBC & Chem 7: 04/16/18 17:11 04/16/18 17:11 Labs: Abnormal Lab Results - Last 24 Hours (Table) 04/16/18 04/16/18 04/16/18 Range/Units 14:00 16:52 17:11 Sodium 135 L (137-145) mmol/L Glucose 301 H (74-99) mg/dL POC Glucose (mg/dL) 325 H (75-99) mg/dL Hemoglobin A1c (4.0-6.0) % Triglycerides 404 H (<150) mg/dL Cholesterol 260 H (<200) mg/dL HDL Cholesterol 37 L (40-60) mg/dL Ur Specific [place] 1.041 H (1.001-1.035) Urine Glucose (UA) 4+ H (Negative) Crossmatch 04/16/18 04/16/18 04/17/18 Range/Units 17:11 20:53 05:35 Sodium (137-145) mmol/L Glucose (74-99) mg/dL POC Glucose (mg/dL) 299 H (75-99) mg/dL Hemoglobin A1c 11.9 H (4.0-6.0) % Triglycerides (<150) mg/dL Cholesterol (<200) mg/dL HDL Cholesterol (40-60) mg/dL Ur Specific [place] (1.001-1.035) Urine Glucose (UA) (Negative) Crossmatch See Detail 04/17/18 04/17/18 Range/Units 05:51 11:35 Sodium (137-145) mmol/L Glucose (74-99) mg/dL POC Glucose (mg/dL) 288 H 253 H (75-99) mg/dL Hemoglobin A1c (4.0-6.0) % Triglycerides (<150) mg/dL Cholesterol (<200) mg/dL HDL Cholesterol (40-60) mg/dL Ur Specific [place] (1.001-1.035) Urine Glucose (UA) (Negative) Crossmatch Microbiology - Last 24 Hours (Table) 04/16/18 17:00 Nasal Screen MRSA/MSSA - Preliminary Nasal Swab 04/16/18 14:00 Urine Culture - Preliminary Urine,Voided Thrombosis Risk Factor Assmnt - DVT/VTE Prophylaxis DVT/VTE Prophylaxis: Pharmacologic Prophylaxis ordered - Choose All That Apply Any of the Below Risk Factors Present?: No Other Risk Factors: No Other congenital or acquired thrombophilia - If yes, enter type in comment: No Thrombosis Risk Factor Assessment Level: Very Low Risk
[2018-04-17] MEDS ORDERED: MD COMMUNICATION TO PHARMACY 1 EACH MISC PO ONE ×2 (12:51→12:57)
[2018-04-17 14:34] VITALS: BMI 28.2
--- NOTE | 2018-04-17 16:10 | P.CONS ---
History of Present Illness - Reason for Consult Consult date: 04/17/18 Severe CAD requiring CABG medical management Requesting physician: Cb Suh - Chief Complaint Dyspnea and exertion abnormal cardiac cath - History of Present Illness This is a pleasant 53-year-old gentleman patient of Dr. Shahid Hall/Jak Majano. He has underlying diabetes mellitus, type II uncontrolled, off metformin since August 2017 with last A1c of 11, admitted to the cardiac unit for planned CABG scheduled on 04/18/2018. He also has history of asbestosis with pneumoconioses, COPD, kidney stones . He was evaluated for the dyspnea and exertion that included a stress test and a cardiac cath, cardiac cath showed severely calcified right and left systems and mid RCA stenosis 80-90%, proximal LAD stenosis 80% with mid LAD stenosis 20% ostial left circumflex 70% and proximal circumflex 90% stenosis. Cardiothoracic surgery has been consulted for cardiac revascularization system thru CABG. Patient has had no other complications or symptoms in the past no chest pain has. She shortness of breath and exertion, no edema, no eye issues, no CK D no prior history of CVA and [place] CHF or history of DVT or PE in the past. Patient does not require any O2 requirements, nausea devices for ambulation prior to admission. Review of Systems Constitutional: Reports as per HPI, Denies anorexia, Denies chills, Denies chronic headaches, Denies chronic pain, Denies daytime sleepiness, Denies fatigue, Denies fever, Denies lethargy, Denies malaise, Denies night sweats, Denies poor appetite, Denies sweats, Denies weakness, Denies weight gain, Denies weight loss Ears, nose, mouth and throat: Reports as per HPI, Denies ant. neck pain, Denies bleeding gums, Denies dental pain, Denies dysphagia, Denies epistaxis, Denies headache, Denies hoarseness, Denies mouth pain, Denies nasal congestion, Denies nasal discharge, Denies neck fullness/pressure, Denies neck lump, Denies nose pain, Denies odynophagia, Denies post-nasal drip, Denies sinus pain, Denies sinus pressure, Denies swelling in mouth, Denies swelling in throat, Denies sore throat, Denies vertigo, Denies voice changes Cardiovascular: Reports as per HPI, Reports decreased exercise tolerance, Reports dyspnea on exertion, Denies chest pain, Denies claudication, Denies edema, Denies high blood pressure, Denies irregular heart beat, Denies leg edema , Denies lightheadedness, Denies orthopnea, Denies palpitations, Denies paroxysmal nocturnal dyspnea, Denies phlebitis, Denies rapid heart beat, Denies shortness of breath, Denies syncope Respiratory: Reports as per HPI, Denies congestion, Denies cough, Denies cough with sputum, Denies dyspnea, Denies excessive sputum, Denies hemoptysis, Denies home oxygen, Denies pain, Denies pain on inspiration, Denies pleurisy, Denies respiratory infections, Denies sleep apnea, Denies snoring, Denies wheezing Gastrointestinal: Reports as per HPI, Denies abdominal pain, Denies belching, Denies bloating, Denies BRBPR, Denies change in bowel habits, Denies coffee ground emesis, Denies constipation, Denies diarrhea, Denies dyspepsia, Denies early satiety, Denies excessive gas, Denies heartburn, Denies hematemesis, Denies hematochezia, Denies indigestion, Denies jaundice, Denies lactose intolerance, Denies loss of appetite, Denies melena, Denies nausea, Denies vomiting Genitourinary: Reports as per HPI, Denies decreased libido, Denies difficulties fathering child, Denies discharge, Denies dysuria, Denies erectile dysfunction, Denies flank pain, Denies genital pain, Denies genital sores, Denies hematuria, Denies impotence, Denies incontinence, Denies kidney stones, Denies nocturia, Denies polyuria, Denies testicular lump, Denies testicular pain, Denies urinary frequency, Denies urinary hesitancy, Denies urinary retention Musculoskeletal: Reports as per HPI, Denies arm numbness/tingling, Denies atrophy, Denies fractures, Denies frequent falls, Denies gait dysfunction, Denies hot joints, Denies leg numbness/tingling, Denies limitation of motion, Denies loss of height, Denies low back pain, Denies morning stiffness, Denies muscle cramps, Denies muscle weakness, Denies myalgias, Denies neck pain, Denies neck stiffness, Denies prior amputations, Denies redness of joints, Denies shooting arm pain, Denies shooting leg pain Integumentary: Reports as per HPI, Denies acne, Denies boils, Denies brittle nails, Denies change in hair/nails, Denies color changes, Denies darkening of skin, Denies depigmentation, Denies dryness, Denies foot/leg ulcers, Denies growths, Denies hirsutism, Denies lesions, Denies onychomycosis, Denies pruritus , Denies rash, Denies sores, Denies striae, Denies unusual bruising, Denies wounds Neurological: Reports as per HPI, Denies aphasia, Denies ataxia, Denies balance difficulties, Denies burning pain, Denies change in mentation, Denies change in smell/taste, Denies change in speech, Denies confusion, Denies convulsions, Denies double vision, Denies gait dysfunction, Denies head injury, Denies headaches, Denies hearing difficulties, Denies lack of coordination, Denies loss of vision, Denies memory loss, Denies migraines, Denies motor disturbance, Denies numbness, Denies paralysis, Denies paresthesias, Denies seizures, Denies sensory deficit, Denies spasticity, Denies syncope, Denies tic, Denies tingling , Denies transient paralysis, Denies tremors, Denies vertigo, Denies weakness, Denies visual changes Psychiatric: Reports as per HPI, Denies anhedonia, Denies anxiety, Denies anxiety attacks, Denies change in appetite, Denies change in libido, Denies change in sleep habits, Denies confusion, Denies depression, Denies difficulty concentrating, Denies disorientation, Denies hallucinations, Denies hopelessness , Denies hypersomnia, Denies insomnia, Denies irritability, Denies memory loss, Denies mood swings, Denies paranoia, Denies sadness/tearfulness, Denies sleep disturbances, Denies suicidal ideation Endocrine: Reports as per HPI, Reports excessive thirst, Reports high blood sugars Hematologic/Lymphatic: Reports as per HPI, Denies easy bleeding, Denies easy bruising, Denies lymphadenopathy, Denies lymphedema, Denies thrombophilia Allergic/Immunologic: Reports as per HPI, Denies allergic rhinitis, Denies anaphylaxis, Denies angioedema, Denies gluten intolerance, Denies persistent infections, Denies seasonal allergies, Denies urticaria, Denies wheezing 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 History of Any Multi-Drug Resistant Organisms: None Reported Past Surgical History: Adenoidectomy, Orthopedic Surgery, Tonsillectomy Additional Past Surgical History / Comment(s): kidney stone removed, rhinoplasty , lithotripsy x3 Past Anesthesia/Blood Transfusion Reactions: No Reported Reaction Past Psychological History: No Psychological Hx Reported Smoking Status: Former smoker Past Alcohol Use History: None Reported Past Drug Use History: Prescription Drug Abuse Additional Drug Use History / Comment(s): Prescription drug abuse with opiates per his - Past Family History Father Family Medical History: Coronary Artery Disease (CAD), Hyperlipidemia, Hypertension Mother Family Medical History: Cancer (Ovarian) Brother(s) History Unknown: Yes (Kidney stone) Sister(s) History Unknown: Yes (Kidney stone) Daughter(s) Family Medical History: Neurologic Disorder (ADHD) Son(s) Family Medical History: Neurologic Disorder (ADHD) Medications and Allergies Home Medications Medication Instructions Recorded Confirmed Type Acetaminophen [Tylenol Extra 1,000 mg PO QAM 04/11/18 04/16/18 History Strength] Aspirin [Adult Low Dose Aspirin EC] 81 mg PO QAM 04/11/18 04/16/18 History Cardio-Complete 1 tab PO QAM 04/11/18 04/16/18 History Cinnamon Bark [Cinnamon] 1,000 mg PO QAM 04/11/18 04/16/18 History Cyanocobalamin (Vitamin B-12) 1,000 mcg PO QAM 04/11/18 04/16/18 History [Vitamin B-12] Cyclobenzaprine [Flexeril] 10 mg PO QAM 04/11/18 04/16/18 History Fluticasone/Vilanterol [Breo 1 inhalation PO QAM 04/11/18 04/16/18 History Ellipta 100-25 Mcg Inhaler] Loratadine [Claritin] 10 mg PO QAM 04/11/18 04/16/18 History Montelukast [Singulair] 10 mg PO QAM 04/11/18 04/16/18 History Tamsulosin HCl [Flomax] 0.4 mg PO QAM 04/11/18 04/16/18 History Allergies Allergy/AdvReac Type Severity Reaction Status Date / Time No Known Allergies Allergy Verified 04/11/18 08:17 Physical Exam Vitals: Vital Signs Temp Pulse Pulse Resp BP Pulse Ox 04/17/18 15:29 98.2 F 80 16 127/44 96 04/17/18 12:00 97.6 F 71 16 130/84 97 04/17/18 11:07 75 18 04/17/18 08:33 75 18 04/17/18 08:32 97.9 F 75 18 122/80 96 04/17/18 03:59 97.5 F L 72 18 132/84 97 04/16/18 23:54 98.2 F 80 18 118/84 95 04/16/18 19:23 97.7 F 91 18 129/89 92 L 04/16/18 16:00 97.8 F 96 20 136/86 96 Intake and Output 04/17/18 04/17/18 04/17/18 06:59 14:59 22:59 Intake Total 810 2022 Output Total 425 Balance 810 1597 Intake: IV 810 Sodium Chloride 0.9% 1, 810 000 ml @ 100 mls/hr IV . Q10H [facility] Rx#:[id number] Intake, IV Titration 1200 Amount Sodium Chloride 0.9% 1, 1200 000 ml @ 100 mls/hr IV . Q10H [facility] Rx#:[id number] Oral 822 Output: Urine 425 Other: Voiding Method Toilet Toilet Urinal Urinal # Voids 1 1 Weight 79.3 kg 79.3 kg - Constitutional General appearance: cooperative, no acute distress - EENT Eyes: anicteric sclerae, EOMI, PERRLA, dentition normal, normal appearance ENT: NA/AT, normal oropharynx - Neck Neck: no lymphadenopathy, normal ROM, no other, no rigidity, no stridor, no thyromegaly - Respiratory Respiratory: bilateral: CTA, negative: diminished, dullness - Cardiovascular Rhythm: regular Heart sounds: normal: S1, S2 Abnormal Heart Sounds: no systolic murmur, no diastolic murmur, no rub, no S3 Gallop, no S4 Gallop, no click, no other - Gastrointestinal General gastrointestinal: normal bowel sounds, soft - Genitourinary Male genitourinary: scrotal edema (None) - Integumentary Integumentary: no calor, no cellulitis, no cyanotic, decreased turgor, no flushed, no jaundiced, normal, no normal turgor, no pale, no rash, no ulcer - Neurologic Neurologic: CNII-XII intact, focal deficits - Psychiatric Psychiatric: A&O x's 3, appropriate affect Results CBC & Chem 7: 04/16/18 17:11 04/16/18 17:11 Labs: Abnormal Lab Results - Last 24 Hours (Table) 04/16/18 04/16/18 04/16/18 Range/Units 16:52 17:11 17:11 Sodium 135 L (137-145) mmol/L Glucose 301 H (74-99) mg/dL POC Glucose (mg/dL) 325 H (75-99) mg/dL Hemoglobin A1c 11.9 H (4.0-6.0) % Triglycerides 404 H (<150) mg/dL Cholesterol 260 H (<200) mg/dL HDL Cholesterol 37 L (40-60) mg/dL Crossmatch 04/16/18 04/17/18 04/17/18 Range/Units 20:53 05:35 05:51 Sodium (137-145) mmol/L Glucose (74-99) mg/dL POC Glucose (mg/dL) 299 H 288 H (75-99) mg/dL Hemoglobin A1c (4.0-6.0) % Triglycerides (<150) mg/dL Cholesterol (<200) mg/dL HDL Cholesterol (40-60) mg/dL Crossmatch See Detail 04/17/18 Range/Units 11:35 Sodium (137-145) mmol/L Glucose (74-99) mg/dL POC Glucose (mg/dL) 253 H (75-99) mg/dL Hemoglobin A1c (4.0-6.0) % Triglycerides (<150) mg/dL Cholesterol (<200) mg/dL HDL Cholesterol (40-60) mg/dL Crossmatch Microbiology - Last 24 Hours (Table) 04/16/18 17:00 Nasal Screen MRSA/MSSA - Preliminary Nasal Swab 04/16/18 14:00 Urine Culture - Preliminary Urine,Voided Laboratory Results WBC 8.4 k/uL (3.8-10.6) 04/16/18 17:11 RBC 5.25 m/uL (4.30-5.90) 04/16/18 17:11 Hgb 15.6 gm/dL (13.0-17.5) 04/16/18 17:11 Hct 46.4 % (39.0-53.0) 04/16/18 17:11 MCV 88.5 fL (80.0-100.0) 04/16/18 17:11 MCH 29.7 pg (25.0-35.0) 04/16/18 17:11 MCHC 33.6 g/dL (31.0-37.0) 04/16/18 17:11 RDW 13.3 % (11.5-15.5) 04/16/18 17:11 Plt Count 220 k/uL (150-450) 04/16/18 17:11 Neutrophils % 68 % 04/16/18 17:11 Lymphocytes % 24 % 04/16/18 17:11 Monocytes % 5 % 04/16/18 17:11 Eosinophils % 2 % 04/16/18 17:11 Basophils % 1 % 04/16/18 17:11 Neutrophils # 5.7 k/uL (1.3-7.7) 04/16/18 17:11 Lymphocytes # 2.0 k/uL (1.0-4.8) 04/16/18 17:11 Monocytes # 0.4 k/uL (0-1.0) 04/16/18 17:11 Eosinophils # 0.2 k/uL (0-0.7) 04/16/18 17:11 Basophils # 0.1 k/uL (0-0.2) 04/16/18 17:11 PT 10.0 sec (9.0-12.0) 04/16/18 17:11 INR 1.0 (<1.2) 04/16/18 17:11 APTT 22.8 sec (22.0-30.0) 04/16/18 17:11 Sodium 135 mmol/L (137-145) L 04/16/18 17:11 Potassium 4.2 mmol/L (3.5-5.1) 04/16/18 17:11 Chloride 104 mmol/L (98-107) 04/16/18 17:11 Carbon Dioxide 23 mmol/L (22-30) 04/16/18 17:11 Anion Gap 8 mmol/L 04/16/18 17:11 BUN 13 mg/dL (9-20) 04/16/18 17:11 Creatinine 0.77 mg/dL (0.66-1.25) 04/16/18 17:11 Est GFR (CKD-EPI)AfAm >90 (>60 ml/min/1.73 sqM) 04/16/18 17:11 Est GFR (CKD-EPI)NonAf >90 (>60 ml/min/1.73 sqM) 04/16/18 17:11 Glucose 301 mg/dL (74-99) H 04/16/18 17:11 POC Glucose (mg/dL) 253 mg/dL (75-99) H 04/17/18 11:35 POC Glu Clerk Travel Reservations Delia Goncalves 04/17/18 11:[address] Glu mg/dL 295 04/16/18 17:11 Hemoglobin A1c 11.9 % (4.0-6.0) H 04/16/18 17:11 Calcium 9.6 mg/dL (8.4-10.2) 04/16/18 17:11 Magnesium 1.9 mg/dL (1.6-2.3) 04/16/18 17:11 Total Bilirubin 0.4 mg/dL (0.2-1.3) 04/16/18 17:11 AST 19 U/L (17-59) 04/16/18 17:11 ALT 42 U/L (21-72) 04/16/18 17:11 Alkaline Phosphatase 83 U/L (38-126) 04/16/18 17:11 Total Protein 6.3 g/dL (6.3-8.2) 04/16/18 17:11 Albumin 3.8 g/dL (3.5-5.0) 04/16/18 17:11 Triglycerides 404 mg/dL (<150) H 04/16/18 17:11 Cholesterol 260 mg/dL (<200) H 04/16/18 17:11 LDL Cholesterol, Calc mg/dL (0-99) 04/16/18 17:11 HDL Cholesterol 37 mg/dL (40-60) L 04/16/18 17:11 TSH 1.490 mIU/L (0.465-4.680) 04/16/18 17:11 Urine Color Light Yellow 04/16/18 14:00 Urine Appearance Clear (Clear) 04/16/18 14:00 Urine pH 6.5 (5.0-8.0) 04/16/18 14:00 Ur Specific [place] 1.041 (1.001-1.035) H 04/16/18 14:00 Urine Protein Negative (Negative) 04/16/18 14:00 Urine Glucose (UA) 4+ (Negative) H 04/16/18 14:00 Urine Ketones Negative (Negative) 04/16/18 14:00 Urine Blood Negative (Negative) 04/16/18 14:00 Urine Nitrite Negative (Negative) 04/16/18 14:00 Urine Bilirubin Negative (Negative) 04/16/18 14:00 Urine Urobilinogen <2.0 mg/dL (<2.0) 04/16/18 14:00 Ur Leukocyte Esterase Negative (Negative) 04/16/18 14:00 Hepatitis A IgM Ab Non-Reactive (Non-Reactive) 04/16/18 17:11 Hep Bs Antigen Non-Reactive (Non-Reactive) 04/16/18 17:11 Hep B Core IgM Ab Non-Reactive (Non-Reactive) 04/16/18 17:11 Hep C IgG Ab Non-Reactive (Non-Reactive) 04/16/18 17:11 Blood Type A Positive 04/17/18 05:35 Blood Type Confirm A Positive 04/16/18 10:30 Blood Type Recheck CABO Indicated 04/17/18 05:35 Antibody Screen NEGATIVE 04/17/18 05:35 Crossmatch See Detail 04/17/18 05:35 Transfuse Platelets 04/18/18 04/17/18 05:35 Spec Expiration Date 04/20/2018 - 1142 04/17/18 05:35 Assessment and Plan Plan: 1. Severe CAD requiring CABG for triple-vessel disease, patient's anticipated to have CABG on 04/18/2018, cardiothoracic surgery is consulted, pulmonary status has been maximized by [facility] pulmonary, patient currently would require basal bolus regimen for the uncontrolled diabetes, patient would be placed on insulin drip immediately postop, and transitioned to basal bolus dosing. Incentive spirometry be utilizing opiate would be utilized patient will be on Lipitor 80 mg daily, and aspirin 325 mg daily, cal inhibitors and beta johanne 2. Severe uncontrolled diabetes mellitus, A1c of 11.9 not on any medication regimen prior to admission, compliance to treatment has been advocated, start patient on Levemir 9 units which was increased to 12 units today with pre-meal NovoLog coverage and readjust accordingly patient refuses metformin agent needs to be instructed on diabetic insulin management, assistant health educator near discharge date 3. History of kidney stones, CK D stage I no current symptoms 4. History of asbestosis, requirement of maintenance breo, pulmonary [facility] following 5. Hyperlipidemia with tried before for LDL calculated unknown, we would continue on Lipitor 80 mg daily, and follow LDL measured as an outpatient 6 BPH without lower tract symptomatology, next GI prophylaxis DVT prophylaxis
[2018-04-17 17:13] LABS: Glucose,Whole Blood 291 mg/dL (75-99)
--- NOTE | 2018-04-17 17:39 | P.PN ---
Subjective Progress Note Date: 04/17/18 Principal diagnosis: Diffuse coronary artery disease, type 2 diabetes mellitus with complication, history of asbestos exposure This is a pleasant 53-year-old gentleman patient of Dr. Shahid Cervantes He has underlying diabetes mellitus, type II uncontrolled, off metformin since August 2017 with last A1c of 11, admitted to the cardiac unit for planned CABG scheduled on 04/18/2018. He also has history of asbestosis with pneumoconioses , COPD, kidney stones . He was evaluated for the dyspnea and exertion that included a stress test and a cardiac cath, cardiac cath showed severely calcified right and left systems and mid RCA stenosis 80-90%, proximal LAD stenosis 80% with mid LAD stenosis 20% ostial left circumflex 70% and proximal circumflex 90% stenosis. Cardiothoracic surgery has been consulted for cardiac revascularization system thru CABG. Patient has had no other complications or symptoms in the past no chest pain has. She shortness of breath and exertion, no edema, no eye issues, no CK D no prior history of CVA and [place] CHF or history of DVT or PE in the past. Patient does not require any O2 requirements, nausea devices for ambulation prior to admission. 04/17/2018, patient seen eval examined during the rounds, patient is undergoing evaluation for coronary artery bypass surgery already has been evaluated by his primary sales representative livestock yesterday, patient is in good spirits being scheduled for a bypass surgery tomorrow from [facility] standpoint patient does have a history chronic congestion but however denies any cough or sputum production denies any chest tightness sputum production hemoptysis Objective - Vital Signs Vital signs: Vital Signs Temp 98.2 F 04/17/18 15:29 Pulse 80 04/17/18 15:29 Resp 16 04/17/18 15:29 BP 127/44 04/17/18 15:29 Pulse Ox 96 04/17/18 15:29 Intake & Output 04/16/18 04/17/18 04/17/18 18:59 06:59 18:59 Intake Total 550 567 2425 Output Total 400 425 Balance -10 810 1597 Weight 79.5 kg 79.3 kg 79.3 kg Intake: IV 200 810 Sodium Chloride 0.9% 1, 810 000 ml @ 100 mls/hr IV . Q10H [facility] Rx#:[id number] Intake, IV Titration 100 1200 Amount Sodium Chloride 0.9% 1, 100 1200 000 ml @ 100 mls/hr IV . Q10H [facility] Rx#:[id number] Oral 90 822 Output: Urine 400 425 Other: Voiding Method Toilet Urinal # Voids 1 1 - Exam - Constitutional General appearance: cooperative, no acute distress - EENT Eyes: anicteric sclerae, EOMI, PERRLA, dentition normal, normal appearance ENT: NA/AT, normal oropharynx - Neck Neck: no lymphadenopathy, normal ROM, no other, no rigidity, no stridor, no thyromegaly - Respiratory Respiratory: bilateral: CTA, negative: diminished, dullness - Cardiovascular Rhythm: regular Heart sounds: normal: S1, S2 Abnormal Heart Sounds: no systolic murmur, no diastolic murmur, no rub, no S3 Gallop, no S4 Gallop, no click, no other - Gastrointestinal General gastrointestinal: normal bowel sounds, soft - Genitourinary Male genitourinary: scrotal edema (None) - Integumentary Integumentary: no calor, no cellulitis, no cyanotic, decreased turgor, no flushed, no jaundiced, normal, no normal turgor, no pale, no rash, no ulcer - Neurologic Neurologic: CNII-XII intact, focal deficits - Psychiatric Psychiatric: A&O x's 3, appropriate affect - Labs CBC & Chem 7: 04/16/18 17:11 04/16/18 17:11 Labs: Abnormal Lab Results - Last 24 Hours (Table) 04/16/18 04/16/18 04/16/18 Range/Units 17:11 17:11 20:53 Sodium 135 L (137-145) mmol/L Glucose 301 H (74-99) mg/dL POC Glucose (mg/dL) 299 H (75-99) mg/dL Hemoglobin A1c 11.9 H (4.0-6.0) % Triglycerides 404 H (<150) mg/dL Cholesterol 260 H (<200) mg/dL HDL Cholesterol 37 L (40-60) mg/dL Crossmatch 04/17/18 04/17/18 04/17/18 Range/Units 05:35 05:51 11:35 Sodium (137-145) mmol/L Glucose (74-99) mg/dL POC Glucose (mg/dL) 288 H 253 H (75-99) mg/dL Hemoglobin A1c (4.0-6.0) % Triglycerides (<150) mg/dL Cholesterol (<200) mg/dL HDL Cholesterol (40-60) mg/dL Crossmatch See Detail 04/17/18 Range/Units 16:48 Sodium (137-145) mmol/L Glucose (74-99) mg/dL POC Glucose (mg/dL) 291 H (75-99) mg/dL Hemoglobin A1c (4.0-6.0) % Triglycerides (<150) mg/dL Cholesterol (<200) mg/dL HDL Cholesterol (40-60) mg/dL Crossmatch Microbiology - Last 24 Hours (Table) 04/16/18 17:00 Nasal Screen MRSA/MSSA - Preliminary Nasal Swab 04/16/18 14:00 Urine Culture - Preliminary Urine,Voided Assessment and Plan Assessment: Severe diffuse coronary artery disease Uncontrolled diabetes mellitus Asbestos exposure Dyslipidemia Plan: Deep breathing exercises incentive spirometry Obtain pulmonary function testing done from primary care/pulmonary office Care plan discussed with the primary service as well as patient and family at length Time with Patient: Greater than 30
[2018-04-17] MEDS ORDERED: INSULIN DETEMIR 100 UNIT/ML 10 ML VIAL SQ SCH (21:00)
[2018-04-17 21:03] LABS: Glucose,Whole Blood 226 mg/dL (75-99)
[2018-04-18] MEDS ORDERED: PHENYLEPHRINE-0.9% NACL SYG 1 MG/10 ML SYRINGE IV ONE ×4 (05:00)
[2018-04-18] MEDS ORDERED: LACTATED RINGERS 1,000 ML IV SCH (05:00)
[2018-04-18] MEDS ORDERED: ALBUMIN HUMAN 5% 500 ML in EMPTY BAG 1 BAG IVPB ONE ×6 (05:00)
[2018-04-18] MEDS ORDERED: PHENYLEPHRINE 40 MG in SODIUM CHLORIDE 0.9% 250 ML IV ONE (05:00)
[2018-04-18] MEDS ORDERED: PROTAMINE SULFATE 250 MG in EMPTY BAG 1 BAG IV ONE (05:00)
[2018-04-18] MEDS ORDERED: PAPAVERINE 360 MG in SODIUM CHLORIDE 0.9% 90 ML IV ONE (05:00)
[2018-04-18] MEDS ORDERED: CHLORHEXIDINE GLUCONATE 15 ML CUP MUCOUS MEM ONE (05:00)
[2018-04-18] MEDS ORDERED: ASPIRIN 325 MG TAB PO ONE (05:00)
[2018-04-18] MEDS ORDERED: ceFAZolin 2,000 MG in SODIUM CHLORIDE 0.9% 30 ML IVPB ONE (05:00)
[2018-04-18] MEDS ORDERED: ceFAZolin 2 GM in SODIUM CHLORIDE 0.9% 30 ML IVPB ONE (05:00)
[2018-04-18] MEDS ORDERED: PROTAMINE SULFATE 10 MG/ML 25 ML VIAL IV ONE (05:00)
[2018-04-18] MEDS ORDERED: DILTIAZEM 50 MG in SODIUM CHLORIDE 0.9% 40 ML IV SCH (05:00)
[2018-04-18] MEDS ORDERED: MAGNESIUM SULFATE SYG 4.06 MEQ/ML SYRINGE IV ONE (05:00)
[2018-04-18] MEDS ORDERED: ALBUMIN HUMAN 25% 50 ML in EMPTY BAG 1 BAG IVPB ONE (05:00)
[2018-04-18] MEDS ORDERED: HEPARIN SODIUM 1,000 UN/ML (10ML VL) IV ONE (05:00)
[2018-04-18] MEDS ORDERED: INSULIN REGULAR 100 UNIT in SODIUM CHLORIDE 0.9% 100 ML IV ONE (05:00)
[2018-04-18] MEDS ORDERED: ceFAZolin 1,000 MG in SODIUM CHLORIDE 0.9% IRRIGATIO 1,000 ML IRRIGATION ONE (05:00)
[2018-04-18] MEDS ORDERED: PROPOFOL 1,000 MG in EMPTY BAG 1 BAG IV ONE (05:00)
[2018-04-18] MEDS ORDERED: CALCIUM CHLORIDE 100 MG/ML 10 ML SYRINGE IVP ONE (05:00)
[2018-04-18] MEDS ORDERED: HEPARIN SODIUM,PORCINE 5,000 UNIT in SODIUM CHLORIDE 0.9% 500 ML 500 ML IV ONE (05:00)
[2018-04-18] MEDS ORDERED: SODIUM BICARB 8.4% 50 ML SYR (1 MEQ/ML) IV ONE (05:00)
[2018-04-18] MEDS ORDERED: CLEVIDIPINE BUTYRATE 25 MG in EMPTY BAG 1 BAG IV ONE (05:00)
[2018-04-18] MEDS ORDERED: NITROGLYCERIN-D5W PMX 50 MG in DEXTROSE/WATER 1 250ML.BAG IV ONE (05:00)
[2018-04-18] MEDS ORDERED: DEXTROSE 5% IN WATER 1,000 ML with POTASSIUM CHLORIDE 110 MEQ, MAGNESIUM SULFATE 16 MEQ... IV SCH ×5 (05:00)
[2018-04-18] MEDS ORDERED: ATORVASTATIN 10 MG TAB PO ONE (05:00)
[2018-04-18] MEDS ORDERED: METOPROLOL TARTRATE 12.5 MG TAB PO ONE (05:00)
[2018-04-18] MEDS ORDERED: TRANEXAMIC ACID 2,000 MG in SODIUM CHLORIDE 0.9% 180 ML IV ONE ×2 (05:00→09:00)
[2018-04-18] MEDS ORDERED: DEXTROSE 5% IN WATER 1,000 ML with POTASSIUM CHLORIDE 25 MEQ, SODIUM CHLORIDE 2.5MEQ/ML... IV SCH ×6 (05:00)
[2018-04-18] MEDS ORDERED: NITROGLYCERIN-D5W PMX 25 MG/250 ML BTL IV ONE (05:00)
[2018-04-18] MEDS ORDERED: MANNITOL 25% 12.5 GM/50 ML VIAL IV ONE ×2 (05:00)
[2018-04-18] MEDS ORDERED: NOREPINEPHRINE 4 MG in SODIUM CHLORIDE 0.9% 250 ML IV SCH (05:00)
[2018-04-18 05:44] LABS: Glucose,Whole Blood 261 mg/dL (75-99)
[2018-04-18 05:57] LABS: Basophils # (A) 0.1 k/uL (0-0.2); Basophils % (A) 1 %; Eosinophils # (A) 0.2 k/uL (0-0.7); Eosinophils % (A) 2 %; HGB 15.7 gm/dL (13.0-17.5); Lymphocytes # (A) 2.3 k/uL (1.0-4.8); Lymphocytes % (A) 26 %; MCH 28.8 pg (25.0-35.0); MCHC 32.1 g/dL (31.0-37.0); MCV 89.7 fL (80.0-100.0); Mean Platelet Volume 6.7; Monocytes # (A) 0.4 k/uL (0-1.0); Monocytes % (A) 5 %; Neutrophils % (A) 66 %; Platelet Count 259 k/uL (150-450); RBC 5.46 m/uL (4.30-5.90); RDW 13.5 % (11.5-15.5); WBC 9.1 k/uL (3.8-10.6)
[2018-04-18 06:08] LABS: ALT 36 U/L (21-72); AST 21 U/L (17-59); Albumin 3.4 g/dL (3.5-5.0); Alkaline Phosphatase 76 U/L (38-126); Anion Gap 10 mmol/L; Blood Urea Nitrogen 16 mg/dL (9-20); Calcium 9.3 mg/dL (8.4-10.2); Carbon Dioxide 21 mmol/L (22-30); Chloride 104 mmol/L (98-107); Glucose 285 mg/dL (74-99); Partial Thromboplastin Time 24.2 sec (22.0-30.0); Potassium 4.4 mmol/L (3.5-5.1); Prothrombin Time 10.2 sec (9.0-12.0); Sodium 135 mmol/L (137-145); Total Bilirubin 0.6 mg/dL (0.2-1.3)
[2018-04-18 08:40] LABS: ABG Base Excess 0.1 mmol/L; ABG HCO3 25 mmol/L (21-25); ABG Oxygen Saturation 97.6 % (94-97); ABG PCO2 38 mmHg (35-45); ABG PH 7.42 (7.35-7.45); ABG PO2 97 mmHg (83-108); ABG Potassium Whole Blood 4.4 mmol/L (3.4-4.5); ABG Sodium Whole Blood 135 mmol/L (135-146); ABG TCO2 26 mmol/L (19-24)
[2018-04-18] MEDS: SYMBICORT 80-4.5 MCG INHALER INHALATION SCH ×2 (08:53→20:06)
[2018-04-18] MEDS ORDERED: ATORVASTATIN 80 MG TAB PO SCH (09:00)
[2018-04-18 09:51] LABS: ABG Base Excess -0.6 mmol/L; ABG HCO3 25 mmol/L (21-25); ABG Oxygen Saturation 98.4 % (94-97); ABG PCO2 42 mmHg (35-45); ABG PH 7.38 (7.35-7.45); ABG PO2 116 mmHg (83-108); ABG Potassium Whole Blood 4.4 mmol/L (3.4-4.5); ABG Sodium Whole Blood 136 mmol/L (135-146); ABG TCO2 26 mmol/L (19-24)
[2018-04-18 11:11] LABS: ABG Base Excess 1.4 mmol/L; ABG HCO3 26 mmol/L (21-25); ABG PCO2 41 mmHg (35-45); ABG PH 7.41 (7.35-7.45); ABG PO2 315 mmHg (83-108); ABG Potassium Whole Blood 4.5 mmol/L (3.4-4.5); ABG Sodium Whole Blood 134 mmol/L (135-146); ABG TCO2 27 mmol/L (19-24)
[2018-04-18 11:44] LABS: ABG Base Excess 2.1 mmol/L; ABG HCO3 26 mmol/L (21-25); ABG Oxygen Saturation 99.9 % (94-97); ABG PCO2 38 mmHg (35-45); ABG PH 7.45 (7.35-7.45); ABG PO2 384 mmHg (83-108); ABG Potassium Whole Blood 4.3 mmol/L (3.4-4.5); ABG Sodium Whole Blood 134 mmol/L (135-146); ABG TCO2 27 mmol/L (19-24)
[2018-04-18 12:51] LABS: ABG Base Excess 2.3 mmol/L; ABG HCO3 27 mmol/L (21-25); ABG PCO2 39 mmHg (35-45); ABG PH 7.44 (7.35-7.45); ABG PO2 412 mmHg (83-108); ABG Sodium Whole Blood 134 mmol/L (135-146); ABG TCO2 28 mmol/L (19-24)
[2018-04-18 13:46] LABS: ABG Base Excess 1.7 mmol/L; ABG HCO3 26 mmol/L (21-25); ABG Oxygen Saturation 98.5 % (94-97); ABG PCO2 40 mmHg (35-45); ABG PH 7.43 (7.35-7.45); ABG PO2 111 mmHg (83-108); ABG Potassium Whole Blood 3.6 mmol/L (3.4-4.5); ABG Sodium Whole Blood 137 mmol/L (135-146); ABG TCO2 27 mmol/L (19-24)
[2018-04-18 14:19] LABS: ABG Base Excess 1.8 mmol/L; ABG HCO3 26 mmol/L (21-25); ABG PCO2 37 mmHg (35-45); ABG PH 7.45 (7.35-7.45); ABG PO2 417 mmHg (83-108); ABG Sodium Whole Blood 135 mmol/L (135-146); ABG TCO2 27 mmol/L (19-24)
[2018-04-18 14:23] LABS: ABG HCO3 23 mmol/L (21-25); ABG PCO2 38 mmHg (35-45); ABG PH 7.39 (7.35-7.45); ABG PO2 >420 mmHg (83-108); ABG TCO2 24 mmol/L (19-24)
[2018-04-18 14:24] LABS: ABG Sodium Whole Blood 130 mmol/L (135-146)
[2018-04-18] MEDS ORDERED: ALBUMIN HUMAN 5% 250 ML in EMPTY BAG 1 BAG IVPB PRN (14:28)
[2018-04-18] MEDS ORDERED: DEXTROSE 5% IN WATER 100 ML with AMIODARONE 150 MG IV PRN (14:28)
[2018-04-18] MEDS ORDERED: AMIODARONE 450 MG in DEXTROSE 5% IN WATER 250 ML IV PRN ×2 (14:28)
[2018-04-18] MEDS ORDERED: Magnesium Replacement Protocol 1 EACH MISC MISCELLANE PRN (14:28)
[2018-04-18] MEDS ORDERED: Potassium Replacement Protocol 1 EACH MISC MISCELLANE PRN ×2 (14:28→15:35)
[2018-04-18] MEDS ORDERED: ONDANSETRON 4 MG/2 ML VIAL IVP PRN (14:28)
[2018-04-18] MEDS ORDERED: METOCLOPRAMIDE 5 MG/ML 2 ML VIAL IVP PRN (14:28)
[2018-04-18] MEDS ORDERED: BENZOCAINE/MENTHOL LOZENG 1 EACH LOZENGE MUCOUS MEM PRN (14:28)
[2018-04-18] MEDS ORDERED: IPRATROPIUM-ALBUTEROL 3 ML NEB INHALATION PRN (14:28)
[2018-04-18] MEDS ORDERED: CALCIUM CHLORIDE 1,000 MG in SODIUM CHLORIDE 0.9% 100 ML IV PRN (14:28)
[2018-04-18] MEDS ORDERED: Phosphorus Replacement Protoco 1 EACH MISC MISCELLANE PRN (14:28)
[2018-04-18] MEDS ORDERED: INSULIN REGULAR 100 UNIT in SODIUM CHLORIDE 0.9% 100 ML IV SCH (14:30)
[2018-04-18] MEDS: TAMSULOSIN 0.4 MG CAP.ER.24H PO SCH (15:04)
[2018-04-18] MEDS: LORATADINE 10 MG TAB PO SCH (15:04)
[2018-04-18] MEDS: MONTELUKAST 10 MG TAB PO SCH (15:04)
[2018-04-18] MEDS: CYCLOBENZAPRINE 10 MG TAB PO SCH (15:04)
[2018-04-18] MEDS: CLEVIDIPINE BUTYRATE 25 MG in EMPTY BAG 1 BAG IV SCH ×2 (15:06→19:36)
[2018-04-18] MEDS: LACTATED RINGERS 1,000 ML IV SCH (15:07)
[2018-04-18 15:08] LABS: Glucose,Whole Blood 112 mg/dL (75-99)
[2018-04-18 15:11] LABS: Basophils % (A) 0 %; Eosinophils # (A) 0.1 k/uL (0-0.7); Eosinophils % (A) 1 %; HCT 32.2 % (39.0-53.0); Lymphocytes # (A) 1.6 k/uL (1.0-4.8); Lymphocytes % (A) 17 %; MCHC 34.1 g/dL (31.0-37.0); MCV 87.9 fL (80.0-100.0); Mean Platelet Volume 7.2; Monocytes # (A) 0.3 k/uL (0-1.0); Monocytes % (A) 3 %; Neutrophils # (A) 7.2 k/uL (1.3-7.7); Neutrophils % (A) 78 %; Platelet Count 158 k/uL (150-450); RBC 3.66 m/uL (4.30-5.90); RDW 13.4 % (11.5-15.5); WBC 9.2 k/uL (3.8-10.6)
[2018-04-18] MEDS: ceFAZolin IN SWFI 2 GM/20 ML SYRINGE IVP SCH (15:13)
[2018-04-18 15:15] LABS: Ionized Calcium 4.8 mg/dL (4.5-5.3)
[2018-04-18] MEDS: NITROGLYCERIN-D5W PMX 50 MG in DEXTROSE/WATER 1 250ML.BAG IV SCH (15:16)
[2018-04-18 15:19] LABS: INR 1.2 (<1.2); Partial Thromboplastin Time 31.2 sec (22.0-30.0); Prothrombin Time 11.4 sec (9.0-12.0)
[2018-04-18 15:25] LABS: ABG Base Excess 2.8 mmol/L; ABG HCO3 28 mmol/L (21-25); ABG Oxygen Saturation 96.6 % (94-97); ABG PCO2 50 mmHg (35-45); ABG PH 7.36 (7.35-7.45); ABG PO2 98 mmHg (83-108); ABG TCO2 30 mmol/L (19-24)
[2018-04-18 15:26] LABS: ALT 39 U/L (21-72); AST 49 U/L (17-59); Albumin 2.6 g/dL (3.5-5.0); Alkaline Phosphatase 36 U/L (38-126); Anion Gap 4 mmol/L; Blood Urea Nitrogen 13 mg/dL (9-20); Calcium 7.8 mg/dL (8.4-10.2); Carbon Dioxide 26 mmol/L (22-30); Chloride 107 mmol/L (98-107); Glucose 112 mg/dL (74-99); Magnesium 2.4 mg/dL (1.6-2.3); Potassium 3.7 mmol/L (3.5-5.1); Sodium 137 mmol/L (137-145); Total Bilirubin 0.3 mg/dL (0.2-1.3); Total Protein 4.5 g/dL (6.3-8.2)
[2018-04-18] MEDS: IPRATROPIUM-ALBUTEROL 3 ML NEB INHALATION SCH ×2 (15:35→19:39)
--- NOTE | 2018-04-18 15:46 | XR ---
EXAMINATION TYPE: XR chest 1V portable DATE OF EXAM: 04/18/2018 COMPARISON: Prior chest x-ray 04/16/2018 HISTORY: Status post cardiac surgery TECHNIQUE: Single frontal view of the chest is obtained. FINDINGS: Endotracheal tube is positioned within the proximal right mainstem bronchus. NG tube is ov erlying appropriate position. Left chest tube, median sternal drains, right jugular central venous sh eath and coaxial [place]-Dmitriy catheter is are overlying appropriate positions. No sizable pneumothorax. Lung volumes are low. Patchy basilar density is present. Heart size may be slightly enlarged. Mediast inum is widened. Subcutaneous emphysema is present. Epicardial pacing leads are present. IMPRESSION: Expiratory exam. Endotracheal tube as described, report relayed to intensive care unit sisi Salazar at the time of interpretation. Postop changes. Basilar atelectasis. Follow-up recommende hany
[2018-04-18] MEDS ORDERED: POTASSIUM BICARBONATE/CIT AC 20 MEQ TABLET.EFF NG-TUBE SCH (16:00)
[2018-04-18 16:28] LABS: Glucose,Whole Blood 113 mg/dL (75-99)
--- NOTE | 2018-04-18 16:57 | XR ---
EXAMINATION TYPE: XR chest 1V DATE OF EXAM: 04/18/2018 COMPARISON: 04/18/2018 3:00 PM HISTORY: Check tube placement TECHNIQUE: Single frontal view of the chest is obtained. FINDINGS: Endotracheal tube is 1.5 cm from the sonido. Nasogastric tube is in good position. There i s right jugular catheter with tip in the right pulmonary artery. There is left chest tube. There are sternal wires. There is no heart failure. No pneumothorax seen. IMPRESSION: There is decreased pulmonary congestion compared to last exam one hour ago. Endotracheal tube is still low and could be pulled back 1 to 2 cm.
[2018-04-18] MEDS: DEXMEDETOMIDINE/0.9% NACL(PMX) 400 MCG in EMPTY BAG 1 BAG IV SCH (17:00)
[2018-04-18 17:02] LABS: ABG Base Excess -0.7 mmol/L; ABG HCO3 26 mmol/L (21-25); ABG Oxygen Saturation 80.9 % (94-97); ABG PCO2 57 mmHg (35-45); ABG PH 7.27 (7.35-7.45); ABG TCO2 28 mmol/L (19-24)
--- NOTE | 2018-04-18 17:20 | OP ---
OPERATIVE REPORT PREOP DIAGNOSIS: Coronary artery disease. POSTOP DIAGNOSIS: Coronary artery disease. PROCEDURE: 1. Coronary bypass grafting x3 vessels (left internal mammary artery to left anterior descending artery, saphenous vein graft to posterior lateral branch, radial artery to obtuse marginal artery). 2. Endoscopic vein harvest, left greater saphenous vein. 3. Endoscopic harvest of left radial artery. 4. Epiaortic ultrasound. 5. Transesophageal echocardiogram. SURGEON: Jorge Flores MD. QUALITY ASSURANCE ENGINEER: 1. TOBIAS Manrique. 2. Leticia COLLADO. ANESTHESIA: General. SPECIMEN: None. COMPLICATIONS: None. INDICATION: The patient is a 53-year-old male with a past medical history significant for COPD, diabetes mellitus, and tobacco use who reports exertional dyspnea. Cardiac catheterization revealed multivessel coronary artery disease. The coronary artery bypass was recommended. The risks, benefits, alternatives of procedure were discussed with the patient. All his questions were answered. Consent was obtained. FINDINGS: The left internal mammary artery was good conduit. Saphenous vein was good conduit. The radial artery was a good conduit. The posterior lateral branch of the right coronary artery was small and thin-walled measured 1.0 mm. The PDA was too small for bypass. The distal right coronary artery was heavily calcified. The obtuse marginal artery had peak diffuse calcific disease and measured 1.3 mm. The LAD measured 1.3 mm. PROCEDURE: The patient was taken to the operating room, placed supine on the operating table. After induction of general anesthesia, he was prepped and draped in the usual sterile fashion. Preoperative transesophageal echocardiogram revealed ejection fraction of about 40% with anterior septal hypokinesis and mild mitral regurgitation. A median sternotomy was performed. The left internal mammary artery was harvested in standard fashion taking care to clip all branches. Intravenous heparin was administered. The vessel was transected distally revealing brisk flow. Simultaneously, the left radial artery was harvested using standard endoscopic technique. All branches were tied. The radial artery was a good conduit. Greater saphenous vein was also harvested from the left lower extremity using endoscopic technique. All branches were tied. The vein was a good conduit. A pericardial cradle was created. The ascending aorta was palpated. There was no significant plaque noted. Epiaortic ultrasound was then performed. Again no significant calcific plaque or atheromatous disease identified. An arterial cannula was placed in the distal aorta. A venous cannula was placed through the right atrial appendage and directed into the IVC. Both antegrade and retrograde catheters were placed as well. The patient was then placed on cardiopulmonary bypass with good decompression of the heart. The cross-clamp was applied. Cardioplegia was delivered in both antegrade and retrograde fashion to achieve arrest of the heart. Of note, cardioplegia was delivered every 15-20 minutes while the patient remained under cross- clamp. We began by inspecting the inferior wall. The distal right coronary artery was palpated and heavily calcified. The posterior descending artery was identified. It was too small for bypass. A posterior lateral branch was then identified. It was slightly larger. I felt it could be bypassed. A small arteriotomy was created. This vessel was thin-walled. It measured 1.0 mm. Using saphenous vein in a reverse fashion, an end-to-side anastomosis was created. This was performed using a running 7- 0 Prolene suture. The graft was hemostatic and had good flow. Next, the lateral wall was identified. Diffuse calcific disease noted in the obtuse marginal artery. A soft spot amenable for bypass was chosen in its distal portion. A small arteriotomy was created. This vessel was a 1 mm probe. Using the radial artery, an end-to-side anastomosis was created. This was performed using running 7-0 Prolene suture. The graft was hemostatic and had great flow. The radial artery was tacked down to the undersurface of the heart. Finally the anterior surface of the heart was identified. The left anterior descending artery was identified near its takeoff of the diagonal artery. A small arteriotomy was created. This vessel accepted a 1 mm probe. Using the left internal mammary artery, an end-to-side anastomosis was created. This was performed a running 8-0 Prolene suture. The graft was hemostatic. The mammary pedicle was then tacked on the anterior surface of the heart. Attention was then turned to the proximal anastomoses. These were performed in an end- to-side fashion using running 6-0 Prolene sutures. 1 L of warm blood was delivered in retrograde fashion. Both lidocaine and magnesium were administered as well. The aortic cross-clamp was removed. The grafts were de-aired in the standard fashion. The distal anastomoses were inspected and appeared to be hemostatic. The retrograde catheter was removed. Temporary atrial and ventricular pacing wires were placed and brought through the skin. The patient was then weaned off cardiopulmonary bypass. He without any difficulty. No pressors were needed. Followup transesophageal echocardiogram revealed no change in the trace to mild mitral regurgitation and an ejection fraction on the order 40%. Protamine was administered. There were no adverse reactions. The mediastinum was copiously irrigated with warm saline solution. All surgical sites were inspected, appeared to be hemostatic. Reinforcement sutures were placed as needed. Soft tissues reapproximated over the ascending aorta as well as over the apex of the heart. Chest tubes were directed into the left pleural space as well as the mediastinum. These were all secured to the skin using sutures. The sternum was then reapproximated using stainless steel wires in a figure of eight fashion. At the completion of the closure, the sternum was well aligned. The remainder of the wound was then closed in layers. Sterile dressing was applied. The patient appeared to tolerate the procedure well. There were no immediate complications. He returned to the ICU in critical but stable condition. JOHNODPeggy / DAMARISN: [id number] /
[2018-04-18 17:30] LABS: Glucose,Whole Blood 156 mg/dL (75-99)
[2018-04-18] MEDS ORDERED: BENZOCAINE SPRAY 1 CAN MUCOUS MEM PRN (17:36)
[2018-04-18 17:38] LABS: ABG PO2 53 mmHg (83-108)
[2018-04-18] MEDS ORDERED: fentaNYL (PF) 50 MCG/ML 2 ML AMP IVP PRN ×2 (17:40)
[2018-04-18] MEDS: POTASSIUM CHLORIDE 10 MEQ in WATER FOR INJECTION 1 100ML.BAG IVPB SCH ×2 (17:50→19:17)
[2018-04-18] MEDS: ACETAMINOPHEN IV (For NPO) 1,000 MG in EMPTY BAG 1 BAG IVPB SCH (18:12)
[2018-04-18] MEDS: PROPOFOL 1,000 MG in EMPTY BAG 1 BAG IV SCH (18:18)
[2018-04-18 18:44] LABS: Glucose,Whole Blood 129 mg/dL (75-99)
[2018-04-18 18:53] LABS: ABG Base Excess 1.1 mmol/L; ABG HCO3 26 mmol/L (21-25); ABG Oxygen Saturation 90.9 % (94-97); ABG PCO2 44 mmHg (35-45); ABG PH 7.39 (7.35-7.45); ABG PO2 63 mmHg (83-108); ABG TCO2 28 mmol/L (19-24)
--- NOTE | 2018-04-18 18:53 | XR ---
EXAMINATION TYPE: XR chest 1V portable DATE OF EXAM: 04/18/2018 COMPARISON: Today at 4:30 PM HISTORY: Hypoxemia TECHNIQUE: Single frontal view of the chest is obtained. FINDINGS: Endotracheal tube is approximately 5 cm from the sonido. Right jugular catheter with the t ip in the main pulmonary artery. There is left-sided chest tube. No pneumothorax. There is a drain ov er the heart. Trachea is midline. There is poor inspiration. There is coarsening of the lung markings . IMPRESSION: Interstitial infiltrates and subsegmental atelectasis is increased compared to exam 2 ho urs ago. Endotracheal tube is in good position. There is removal of the nasogastric tube.
[2018-04-18 19:58] LABS: Glucose,Whole Blood 193 mg/dL (75-99)
[2018-04-18 20:46] LABS: Glucose,Whole Blood 190 mg/dL (75-99)
[2018-04-18 21:15] LABS: Glucose,Whole Blood 192 mg/dL (75-99)
[2018-04-18 21:26] LABS: Basophils % (A) 0 %; Eosinophils % (A) 0 %; HCT 35.2 % (39.0-53.0); HGB 12.1 gm/dL (13.0-17.5); Lymphocytes # (A) 0.9 k/uL (1.0-4.8); Lymphocytes % (A) 9 %; MCH 30.6 pg (25.0-35.0); MCHC 34.4 g/dL (31.0-37.0); Mean Platelet Volume 7.1; Monocytes # (A) 0.5 k/uL (0-1.0); Monocytes % (A) 5 %; Neutrophils # (A) 9.4 k/uL (1.3-7.7); Neutrophils % (A) 86 %; Platelet Count 188 k/uL (150-450); RBC 3.96 m/uL (4.30-5.90); RDW 13.4 % (11.5-15.5); WBC 10.9 k/uL (3.8-10.6)
[2018-04-18 21:37] LABS: ALT 45 U/L (21-72); AST 84 U/L (17-59); Alkaline Phosphatase 47 U/L (38-126); Anion Gap 6 mmol/L; Blood Urea Nitrogen 11 mg/dL (9-20); Calcium 8.9 mg/dL (8.4-10.2); Carbon Dioxide 24 mmol/L (22-30); Chloride 104 mmol/L (98-107); Glucose 172 mg/dL (74-99); Potassium 4.8 mmol/L (3.5-5.1); Sodium 134 mmol/L (137-145); Total Bilirubin 0.6 mg/dL (0.2-1.3); Total Protein 4.9 g/dL (6.3-8.2)
[2018-04-18 22:21] LABS: Glucose,Whole Blood 175 mg/dL (75-99)
[2018-04-18] MEDS: MUPIROCIN 2% OINT 22 GM TUBE NASAL SCH (22:42)
[2018-04-18 23:59] LABS: Glucose,Whole Blood 144 mg/dL (75-99)
[2018-04-19 00:42] LABS: Glucose,Whole Blood 141 mg/dL (75-99)
[2018-04-19] MEDS: ACETAMINOPHEN IV (For NPO) 1,000 MG in EMPTY BAG 1 BAG IVPB SCH ×4 (00:43→18:53)
[2018-04-19] MEDS: HEPARIN SODIUM,PORCINE 5,000 UNIT/ML 1 ML VIAL SQ SCH ×3 (00:44→16:56)
[2018-04-19] MEDS: DEXMEDETOMIDINE/0.9% NACL(PMX) 400 MCG in EMPTY BAG 1 BAG IV SCH ×2 (00:46→14:10)
[2018-04-19] MEDS: PROPOFOL 1,000 MG in EMPTY BAG 1 BAG IV SCH (00:50)
[2018-04-19] MEDS: ceFAZolin IN SWFI 2 GM/20 ML SYRINGE IVP SCH ×2 (01:30→09:25)
[2018-04-19 01:39] LABS: Glucose,Whole Blood 136 mg/dL (75-99)
[2018-04-19 02:27] LABS: Glucose,Whole Blood 128 mg/dL (75-99)
[2018-04-19 03:15] LABS: Glucose,Whole Blood 137 mg/dL (75-99)
[2018-04-19 04:20] LABS: Glucose,Whole Blood 128 mg/dL (75-99)
[2018-04-19 04:21] LABS: Basophils % (A) 0 %; Eosinophils # (A) 0.1 k/uL (0-0.7); Eosinophils % (A) 2 %; Lymphocytes # (A) 0.8 k/uL (1.0-4.8); Lymphocytes % (A) 10 %; MCH 30.1 pg (25.0-35.0); MCHC 34.4 g/dL (31.0-37.0); MCV 87.6 fL (80.0-100.0); Mean Platelet Volume 6.9; Monocytes # (A) 0.4 k/uL (0-1.0); Monocytes % (A) 5 %; Neutrophils # (A) 6.8 k/uL (1.3-7.7); Neutrophils % (A) 83 %; Platelet Count 154 k/uL (150-450); RBC 3.66 m/uL (4.30-5.90); RDW 13.4 % (11.5-15.5); WBC 8.3 k/uL (3.8-10.6)
[2018-04-19 04:30] LABS: INR 1.2 (<1.2); Partial Thromboplastin Time 27.9 sec (22.0-30.0); Prothrombin Time 11.2 sec (9.0-12.0)
[2018-04-19 04:33] LABS: ALT 46 U/L (21-72); AST 74 U/L (17-59); Albumin 3.2 g/dL (3.5-5.0); Alkaline Phosphatase 41 U/L (38-126); Anion Gap 7 mmol/L; Blood Urea Nitrogen 9 mg/dL (9-20); Calcium 8.6 mg/dL (8.4-10.2); Carbon Dioxide 23 mmol/L (22-30); Chloride 104 mmol/L (98-107); Glucose 120 mg/dL (74-99); Magnesium 1.8 mg/dL (1.6-2.3); Potassium 4.2 mmol/L (3.5-5.1); Sodium 134 mmol/L (137-145); Total Bilirubin 0.6 mg/dL (0.2-1.3); Total Protein 5.1 g/dL (6.3-8.2)
[2018-04-19 05:21] LABS: Glucose,Whole Blood 136 mg/dL (75-99)
[2018-04-19 05:27] LABS: ABG Base Excess 1.3 mmol/L; ABG HCO3 25 mmol/L (21-25); ABG Oxygen Saturation 97.8 % (94-97); ABG PCO2 33 mmHg (35-45); ABG PH 7.48 (7.35-7.45); ABG PO2 105 mmHg (83-108); ABG TCO2 26 mmol/L (19-24)
[2018-04-19] MEDS: MAGNESIUM SULFATE-D5W PMX 1 GM in DEXTROSE/WATER 1 100ML.BAG IVPB SCH ×2 (05:43→06:13)
[2018-04-19 06:28] LABS: Glucose,Whole Blood 153 mg/dL (75-99)
--- NOTE | 2018-04-19 06:52 | P.CRDCN ---
History of Present Illness Consult date: 04/19/18 Chief complaint: Shortness of breath History of present illness: This is a pleasant 53-year-old gentleman who I follow at [place] as an outpatient with a past medical history significant for diabetes as well as chronic obstructive pulmonary disease was admitted to the hospital yesterday and underwent elective CABG. The patient was experiencing exertional dyspnea concerning for angina. He underwent a myocardial perfusion imaging stress test and that came in to be unremarkable. He did undergo a computed tomography scan of the chest for the evaluation off chronic lung disease and that revealed heavily calcified coronary arteries. Because of the symptoms of exertional dyspnea which was concerning for angina I did perform a heart catheterization on him. The heart catheterization revealed extremely calcified right and left coronary systems with severe triple-vessel coronary artery disease. The patient was seen by cardiothoracic surgeon yesterday and he underwent CABG 3 where he received CONNER to LAD, saphenous vein graft to posterior lateral branch, and radial artery to obtuse marginal branch. This is postoperative elevation day #1. The patient felt extubation yesterday. He does have chronic lung disease consistent with asbestosis as well as COPD. Currently he is intubated on ventilator. He is sedated with propofol. He is on nitro drip. Hemodynamically he is stable. He has been maintaining normal sinus mechanism. Making good urine. He is on aspirin, Lasix, statin, and metoprolol. The hemoglobin is 11.0. GFR continues to be above 90. We will continue the current medical regimen. The patient is expected to be extubated later on today. We'll continue following up with him. 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 History of Any Multi-Drug Resistant Organisms: None Reported Past Surgical History: Adenoidectomy, Orthopedic Surgery, Tonsillectomy Additional Past Surgical History / Comment(s): kidney stone removed, rhinoplasty , lithotripsy x3 Past Anesthesia/Blood Transfusion Reactions: No Reported Reaction Past Psychological History: No Psychological Hx Reported Smoking Status: Former smoker Past Alcohol Use History: None Reported Past Drug Use History: Prescription Drug Abuse Additional Drug Use History / Comment(s): Prescription drug abuse with opiates per his - Past Family History Father Family Medical History: Coronary Artery Disease (CAD), Hyperlipidemia, Hypertension Mother Family Medical History: Cancer (Ovarian) Brother(s) History Unknown: Yes (Kidney stone) Sister(s) History Unknown: Yes (Kidney stone) Daughter(s) Family Medical History: Neurologic Disorder (ADHD) Son(s) Family Medical History: Neurologic Disorder (ADHD) Medications and Allergies Home Medications Medication Instructions Recorded Confirmed Type Acetaminophen [Tylenol Extra 1,000 mg PO QAM 04/11/18 04/16/18 History Strength] Aspirin [Adult Low Dose Aspirin EC] 81 mg PO QAM 04/11/18 04/16/18 History Cardio-Complete 1 tab PO QAM 04/11/18 04/16/18 History Cinnamon Bark [Cinnamon] 1,000 mg PO QAM 04/11/18 04/16/18 History Cyanocobalamin (Vitamin B-12) 1,000 mcg PO QAM 04/11/18 04/16/18 History [Vitamin B-12] Cyclobenzaprine [Flexeril] 10 mg PO QAM 04/11/18 04/16/18 History Fluticasone/Vilanterol [Breo 1 inhalation PO QAM 04/11/18 04/16/18 History Ellipta 100-25 Mcg Inhaler] Loratadine [Claritin] 10 mg PO QAM 04/11/18 04/16/18 History Montelukast [Singulair] 10 mg PO QAM 04/11/18 04/16/18 History Tamsulosin HCl [Flomax] 0.4 mg PO QAM 04/11/18 04/16/18 History Allergies Allergy/AdvReac Type Severity Reaction Status Date / Time No Known Allergies Allergy Verified 04/19/18 06:46 Physical Exam Vitals: Vital Signs Temp Pulse Resp BP Pulse Ox 04/19/18 06:00 84 18 100 04/19/18 05:00 88 19 123/85 100 04/19/18 04:00 85 22 100 04/19/18 03:00 74 18 96/68 100 04/19/18 02:00 78 18 102/72 100 04/19/18 01:00 78 18 98 04/19/18 00:00 80 18 98 04/18/18 23:00 79 16 98 04/18/18 22:00 98.6 F 81 18 100 04/18/18 21:00 82 18 100 04/18/18 20:06 86 04/18/18 20:00 80 18 99 04/18/18 19:50 82 18 97 04/18/18 19:44 83 04/18/18 19:40 84 20 92 L 04/18/18 19:30 84 19 91 L 04/18/18 19:20 88 19 92 L 04/18/18 19:10 93 21 91 L 04/18/18 19:00 102 H 36 H 93 L 04/18/18 18:50 96 29 H 94 L 04/18/18 18:40 100 23 95 04/18/18 18:30 90 20 96 04/18/18 18:20 94 20 95 04/18/18 18:10 108 H 21 91 L 04/18/18 18:00 89 24 90 L 04/18/18 17:50 93 28 H 87 L 04/18/18 17:40 112 H 18 87 L 04/18/18 17:30 95 23 93 L 04/18/18 17:20 96 22 93 L 04/18/18 17:10 96 20 88 L 04/18/18 17:00 94 27 H 80 L 04/18/18 16:50 92 22 87 L 04/18/18 16:40 96 16 86 L 04/18/18 16:30 94 13 90 L 04/18/18 16:20 92 28 H 91 L 04/18/18 16:10 87 23 90 L 04/18/18 16:04 86 04/18/18 16:00 91 12 93 L 04/18/18 15:50 91 0 L 89 L 04/18/18 15:40 89 0 L 96 04/18/18 15:35 89 04/18/18 15:30 86 2 L 96 04/18/18 15:20 87 0 L 100 04/18/18 15:10 87 0 L 100 04/18/18 15:00 87 3 L 100 04/18/18 14:51 73 H 04/18/18 14:28 100 Intake and Output 04/18/18 04/18/18 04/19/18 14:59 22:59 06:59 Intake Total 63 0628.963 6805.915 Output Total 1800 1325 804 Balance -1737 -108.513 833.915 Intake: IV 63 1052 1432 ACETAMINOPHEN IV (For NPO 100 200 ) 1,000 mg In Empty Bag 1 bag @ 400 mls/hr IVPB Q6HR [facility] Rx#:[id number] Albumin Human 25% 50 ml 500 In Empty Bag 1 bag @ 100 mls/hr IVPB ONCE ONE Rx#: [id number] CO/CI 280 210 Lactated Ringers 1,000 ml 400 350 @ 50 mls/hr IV .Q20H [facility] Rx#:[id number] Magnesium Sulfate-D5w Pmx 100 1 gm In Dextrose/Water 1 100ml.bag @ 100 mls/hr IVPB Q1H [facility] Rx#: [id number] Potassium Chloride 10 meq 200 In Water For Injection 1 100ml.bag @ 100 mls/hr IVPB Q1H [facility] Rx#: [id number] Pressure bags 72 72 Intake, IV Titration 164.487 205.915 Amount Clevidipine Butyrate 25 78.600 7.467 mg In Empty Bag 1 bag @ 1 MG/HR 2 mls/hr IV .Q24H [facility] Rx#:[id number] Dexmedetomidine/0.9% NaCl 135.901 (Pmx) 400 mcg In Empty Bag 1 bag @ Titrate IV . Q0M [facility] Rx#:[id number] Insulin Regular 100 unit 14.611 23.807 In Sodium Chloride 0.9% 100 ml @ Per Protocol IV .Q0M [facility] Rx#:[id number] Propofol 1,000 mg In 71.276 38.740 Empty Bag 1 bag @ Titrate IV .Q0M [facility] Rx#: [id number] Output: Chest Tube Drainage 255 176 Chest Tube Mediastinal 150 94 Pleural Catheter Left 105 82 Drainage 60 drain left forearm 60 Urine 800 1070 568 Estimated Blood Loss 1000 Other: Voiding Method Indwelling Catheter Weight 84.6 kg ABP, PAP, CO, CI - Last 8 Hours Arterial Blood Pressure 119/75 Arterial Blood Pressure 132/82 Arterial Blood Pressure 125/85 Arterial Blood Pressure 94/62 Arterial Blood Pressure 107/75 Arterial Blood Pressure 93/60 Arterial Blood Pressure 110/66 Arterial Blood Pressure 112/69 Pulmonary Artery Pressure 32/23 Pulmonary Artery Pressure 33/23 Pulmonary Artery Pressure 35/24 Pulmonary Artery Pressure 26/17 Pulmonary Artery Pressure 35/24 Pulmonary Artery Pressure 29/19 Pulmonary Artery Pressure 34/22 Pulmonary Artery Pressure 36/26 Cardiac Output 4.8 Cardiac Output 4.5 Cardiac Output 4.4 Cardiac Output 3.7 Cardiac Output 3.6 Cardiac Output 3.5 Cardiac Output 4.6 Cardiac Index 2.5 Cardiac Index 2.3 Cardiac Index 2.3 Cardiac Index 2.0 Cardiac Index 1.9 Cardiac Index 1.9 Cardiac Index 2.4 - Constitutional General appearance: no acute distress - Respiratory Respiratory: bilateral: diminished - Cardiovascular Rhythm: regular Results 04/19/18 04:10 04/19/18 04:10 Cardiac Enzymes 04/18/18 04/18/18 04/19/18 Range/Units 14:55 20:30 04:10 AST 49 84 H 74 H (17-59) U/L Coagulation 04/18/18 04/19/18 Range/Units 14:55 04:10 PT 11.4 11.2 (9.0-12.0) sec APTT 31.2 H 27.9 (22.0-30.0) sec CBC 04/18/18 04/18/18 04/19/18 Range/Units 14:55 20:30 04:10 WBC 9.2 10.9 H 8.3 (3.8-10.6) k/uL RBC 3.66 L 3.96 L 3.66 L (4.30-5.90) m/uL Hgb 11.0 L D 12.1 L 11.0 L (13.0-17.5) gm/dL Hct 32.2 L 35.2 L 32.0 L (39.0-53.0) % Plt Count 158 188 154 (150-450) k/uL Comprehensive Metabolic Panel 04/18/18 04/18/18 04/19/18 Range/Units 14:55 20:30 04:10 Sodium 137 134 L 134 L (137-145) mmol/L Potassium 3.7 4.8 4.2 (3.5-5.1) mmol/L Chloride 107 104 104 (98-107) mmol/L Carbon Dioxide 26 24 23 (22-30) mmol/L BUN 13 11 9 (9-20) mg/dL Creatinine 0.61 L 0.57 L 0.56 L (0.66-1.25) mg/dL Glucose 112 H 172 H 120 H (74-99) mg/dL Calcium 7.8 L 8.9 8.6 (8.4-10.2) mg/dL AST 49 84 H 74 H (17-59) U/L ALT 39 45 46 (21-72) U/L Alkaline Phosphatase 36 L 47 41 (38-126) U/L Total Protein 4.5 L 4.9 L 5.1 L (6.3-8.2) g/dL Albumin 2.6 L 3.0 L 3.2 L (3.5-5.0) g/dL Current Medications Generic Name Dose Route Start Last Admin Trade Name Freq PRN Reason Stop Dose Admin Hydrocodone Bitart/Acetaminophen 2 each 04/19/18 14:20 Salix 5-325 PO Q4HR PRN Severe Pain Hydrocodone Bitart/Acetaminophen 1 each 04/19/18 14:20 Salix 5-325 PO Q4HR PRN Moderate Pain Albuterol/Ipratropium 3 ml 04/18/18 14:28 Duoneb 0.5 Mg-3 Mg/3 Ml Soln INHALATION RT-Q2H PRN Shortness Of Breath Or Wheezing Albuterol/Ipratropium 3 ml 04/19/18 08:00 Duoneb 0.5 Mg-3 Mg/3 Ml Soln INHALATION RT-QID [facility] Aspirin 325 mg 04/19/18 09:00 Aspirin PO DAILY [facility] Atorvastatin Calcium 80 mg 04/19/18 09:00 Lipitor PO DAILY [facility] Benzocaine 1 spray 04/18/18 17:36 Hurricaine [place] MUCOUS MEM QID PRN Mouth Irritation Benzocaine/Menthol 1 each 04/18/18 14:28 Cepacol Lozenge MUCOUS MEM Q2H PRN Sore Throat Bisacodyl 10 mg 04/19/18 14:20 Dulcolax RECTAL DAILY PRN Constipation Budesonide/Formoterol Fumarate 2 puff 04/17/18 08:00 04/18/18 20:06 Symbicort 80-4.5 Mcg Inhaler INHALATION Not Given RT-BID [facility] Cefazolin Sodium 2 gm 04/18/18 16:00 04/19/18 01:30 Kefzol IVP 04/19/18 08:01 2 gm Q8HR [facility] Administration Clopidogrel Bisulfate 75 mg 04/19/18 09:00 Plavix PO DAILY [facility] Cyclobenzaprine HCl 10 mg 04/17/18 09:00 04/18/18 15:04 Flexeril PO Not Given QAM [facility] Fentanyl Citrate 25 mcg 04/18/18 17:40 Sublimaze IVP Q1HR PRN Moderate Pain Fentanyl Citrate 50 mcg 04/18/18 17:40 04/18/18 19:19 Sublimaze IVP 50 mcg Q1HR PRN Administration Severe Pain Heparin Sodium (Porcine) 5,000 unit 04/19/18 00:00 04/19/18 00:44 Heparin SQ 5,000 unit Q8HR [facility] Administration Acetaminophen 1,000 mg/ IV 100 mls @ 400 mls/hr 04/18/18 18:00 04/19/18 05:41 Solution IVPB 04/19/18 18:01 400 mls/hr Q6HR [facility] Administration Albumin Human 250 ml/ IV 250 mls @ 250 mls/hr 04/18/18 14:28 04/19/18 01:20 Solution IVPB 04/20/18 14:29 250 mls/hr Q1HR PRN Administration For Volume Amiodarone HCl 150 mg/ 103 mls @ 618 mls/hr 04/18/18 14:28 Dextrose/Water IV .Q10M PRN Per protocol Protocol Amiodarone HCl 450 mg/ 259 mls @ 34.53 mls/hr 04/18/18 14:28 Dextrose/Water IV .Q7H31M PRN Per Protocol Protocol 1 MG/MIN Clevidipine 25 mg/ IV Solution 50 mls @ 2 mls/hr 04/18/18 14:30 04/19/18 00: 46 IV Infused .Q24H [facility] Titration Protocol 1 MG/HR Insulin Human Regular 100 unit 101 mls @ 0 mls/hr 04/18/18 14:30 04/19/18 06: 17 / Sodium Chloride IV 2.5 units/hr .Q0M [facility] 2.52 mls/hr Titration Protocol Per Protocol Lactated Ringer's 1,000 mls @ 50 mls/hr 04/18/18 14:30 04/18/18 15:07 Lactated Ringers IV 50 mls/hr .Q20H [facility] Administration Nitroglycerin/Dextrose 50 mg/ 250 mls @ 1.5 mls/hr 04/18/18 14:30 04/18/18 15 :16 IV Solution IV 5 mcg/min .Q24H [facility] 1.5 mls/hr Administration 5 MCG/MIN Propofol 1,000 mg/ IV Solution 100 mls @ 0 mls/hr 04/18/18 14:30 04/19/18 04: 15 IV 5 mcg/kg/min .Q0M [facility] 2.53 mls/hr Titration Protocol Titrate Dexmedetomidine HCl 400 mcg/ 100 mls @ 0 mls/hr 04/18/18 18:00 04/19/18 05:27 IV Solution IV 04/19/18 18:01 0.2 mcg/kg/hr .Q0M [facility] 4.23 mls/hr Titration Protocol Titrate Magnesium Sulfate/Dextrose 1 100 mls @ 100 mls/hr 04/19/18 05:45 04/19/18 06: 13 gm/ IV Solution IVPB 04/19/18 07:44 100 mls/hr Q1H [facility] Administration Loratadine 10 mg 04/17/18 09:00 04/18/18 15:04 Claritin PO Not Given QAM [facility] Magnesium Hydroxide 2,400 mg 04/19/18 14:20 Milk Of Magnesia PO BID PRN Constipation Metoclopramide HCl 10 mg 04/18/18 14:28 Reglan IVP Q4H PRN Nausea And Vomiting Metoprolol Tartrate 12.5 mg 04/19/18 09:00 Lopressor PO BID [facility] Miscellaneous Information 1 each 04/18/18 14:28 Magnesium Per Protocol MISCELLANE DAILY PRN Per Protocol Protocol Miscellaneous Information 1 each 04/18/18 14:28 Phosphorus Per Protocol MISCELLANE DAILY PRN Per Protocol Protocol Miscellaneous Information 1 each 04/18/18 14:28 Potassium Per Protocol MISCELLANE DAILY PRN Per Protocol Protocol Miscellaneous Information 1 each 04/18/18 15:35 Potassium Per Protocol MISCELLANE DAILY PRN Per Protocol Protocol Montelukast Sodium 10 mg 04/17/18 09:00 04/18/18 15:04 Singulair PO Not Given QAM [facility] Mupirocin 1 applic 04/18/18 21:00 04/18/18 22:42 Bactroban Oint NASAL 04/21/18 21:01 1 applic BID [facility] Administration Ondansetron HCl 4 mg 04/18/18 14:28 Zofran IVP Q6HR PRN Nausea And Vomiting Oxycodone HCl 10 mg 04/18/18 14:28 Oxyir PO 04/19/18 14:29 Q4H PRN Severe Pain Oxycodone HCl 5 mg 04/18/18 14:28 Oxyir PO 04/19/18 14:29 Q4H PRN Moderate Pain Pantoprazole Sodium 40 mg 04/19/18 09:00 Protonix IVP DAILY [facility] Senna/Docusate Sodium 2 each 04/19/18 21:00 Senokot-S PO HS [facility] Sodium Chloride 10 ml 04/18/18 21:00 04/18/18 21:50 Saline Flush IV 10 ml BID [facility] Administration Tamsulosin HCl 0.4 mg 04/17/18 09:00 04/18/18 15:04 Flomax PO Not Given QAM [facility] Intake and Output 04/18/18 04/18/18 04/19/18 14:59 22:59 06:59 Intake Total 63 2333.498 6060.915 Output Total 1800 1325 804 Balance -1737 -108.513 833.915 Intake: IV 63 1052 1432 ACETAMINOPHEN IV (For NPO 100 200 ) 1,000 mg In Empty Bag 1 bag @ 400 mls/hr IVPB Q6HR [facility] Rx#:[id number] Albumin Human 25% 50 ml 500 In Empty Bag 1 bag @ 100 mls/hr IVPB ONCE ONE Rx#: [id number] CO/CI 280 210 Lactated Ringers 1,000 ml 400 350 @ 50 mls/hr IV .Q20H [facility] Rx#:[id number] Magnesium Sulfate-D5w Pmx 100 1 gm In Dextrose/Water 1 100ml.bag @ 100 mls/hr IVPB Q1H [facility] Rx#: [id number] Potassium Chloride 10 meq 200 In Water For Injection 1 100ml.bag @ 100 mls/hr IVPB Q1H [facility] Rx#: [id number] Pressure bags 72 72 Intake, IV Titration 164.487 205.915 Amount Clevidipine Butyrate 25 78.600 7.467 mg In Empty Bag 1 bag @ 1 MG/HR 2 mls/hr IV .Q24H [facility] Rx#:[id number] Dexmedetomidine/0.9% NaCl 135.901 (Pmx) 400 mcg In Empty Bag 1 bag @ Titrate IV . Q0M [facility] Rx#:[id number] Insulin Regular 100 unit 14.611 23.807 In Sodium Chloride 0.9% 100 ml @ Per Protocol IV .Q0M [facility] Rx#:[id number] Propofol 1,000 mg In 71.276 38.740 Empty Bag 1 bag @ Titrate IV .Q0M [facility] Rx#: [id number] Output: Chest Tube Drainage 255 176 Chest Tube Mediastinal 150 94 Pleural Catheter Left 105 82 Drainage 60 drain left forearm 60 Urine 800 1070 568 Estimated Blood Loss 1000 Other: Voiding Method Indwelling Catheter Weight 84.6 kg Patient Weight 04/19/18 06:59 Weight 84.6 kg 04/19/18 04:10 04/19/18 04:10 Assessment and Plan Assessment: Assessment #1 severe triple-vessel coronary artery disease and status post CABG #2 ischemic cardiomyopathy with an EF between 40-45% #3 diabetes type 2 #4 dyslipidemia Plan #1 continue the current medical regimen #2 continue aspirin, statin, and beta johanne #3 continue monitor the urine output #4 follow-up on the chest x-ray #5 follow-up on the patient. We will continue following up with the patient.
[2018-04-19 07:22] LABS: Glucose,Whole Blood 159 mg/dL (75-99)
--- NOTE | 2018-04-19 07:24 | XR ---
EXAMINATION TYPE: XR chest 1V portable DATE OF EXAM: 04/19/2018 COMPARISON: 04/18/2018 HISTORY: Postoperative change from cardiac surgery. Follow-up exam. Ventilatory dependent respiratory failure. TECHNIQUE: Single frontal view of the chest is obtained. FINDINGS: There has been interval insertion of an appropriately placed enteric tube. Mediastinal shey ins, epicardial pacing leads, median #wires, mediastinal clips, left thoracostomy tube and Clinton-Dmitriy catheter are unchanged. There is slight cephalad placement of the endotracheal tube that could be adv anced approximately 3 cm for optimal placement. Interstitial prominence is seen throughout with cephalization in low lung volumes. Cardiomediastinal silhouette is enlarged. Osseous structures are grossly intact. No sizable pneumothorax. IMPRESSION: 1. Cephalad placement of the endotracheal tube that could be advanced approximately 3 cm for optimal placement. 2. Interval insertion of an appropriately placed enteric tube. 3. Persistent mild pulmonary vascular congestion.
[2018-04-19] MEDS: SYMBICORT 80-4.5 MCG INHALER INHALATION SCH ×2 (08:07→19:10)
[2018-04-19] MEDS: IPRATROPIUM-ALBUTEROL 3 ML NEB INHALATION SCH ×4 (08:07→19:10)
[2018-04-19 08:31] LABS: Glucose,Whole Blood 140 mg/dL (75-99)
[2018-04-19] MEDS: KETOROLAC 30 MG/ML 1 ML VIAL IVP SCH ×3 (08:34→18:15)
[2018-04-19] MEDS: amLODIPine 5 MG TAB PO SCH (08:35)
[2018-04-19] MEDS: ASPIRIN 325 MG TAB PO SCH (08:35)
[2018-04-19] MEDS: ATORVASTATIN 80 MG TAB PO SCH (08:36)
[2018-04-19] MEDS: METOPROLOL TARTRATE 25 MG TAB PO SCH ×2 (08:36→20:19)
[2018-04-19] MEDS: MONTELUKAST 10 MG TAB PO SCH (08:36)
[2018-04-19] MEDS: CLOPIDOGREL 75 MG TAB PO SCH (08:36)
[2018-04-19] MEDS: TAMSULOSIN 0.4 MG CAP.ER.24H PO SCH (08:37)
[2018-04-19] MEDS: MUPIROCIN 2% OINT 22 GM TUBE NASAL SCH ×2 (08:37→20:20)
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
[2018-04-19] MEDS: CLEVIDIPINE BUTYRATE 25 MG in EMPTY BAG 1 BAG IV SCH (09:00)
[2018-04-19] MEDS ORDERED: METOPROLOL TARTRATE 12.5 MG TAB PO SCH (09:00)
[2018-04-19] MEDS ORDERED: PANTOPRAZOLE 40 MG/10 ML VIAL IVP SCH (09:00)
[2018-04-19 09:11] LABS: Glucose,Whole Blood 127 mg/dL (75-99)
[2018-04-19] MEDS: LACTATED RINGERS 1,000 ML IV SCH (09:27)
[2018-04-19 09:32] LABS: Glucose,Whole Blood 131 mg/dL (75-99)
[2018-04-19 10:49] LABS: Glucose,Whole Blood 118 mg/dL (75-99)
[2018-04-19 11:27] LABS: Glucose,Whole Blood 168 mg/dL (75-99)
[2018-04-19 13:11] LABS: Glucose,Whole Blood 165 mg/dL (75-99)
[2018-04-19] MEDS: CYCLOBENZAPRINE 10 MG TAB PO SCH (13:43)
[2018-04-19] MEDS: LORATADINE 10 MG TAB PO SCH (13:43)
[2018-04-19 14:12] LABS: Glucose,Whole Blood 152 mg/dL (75-99)
[2018-04-19] MEDS ORDERED: BISACODYL 10 MG SUPP RECTAL PRN (14:20)
[2018-04-19] MEDS ORDERED: HYDROcodone/APAP 5-325MG 1 EACH TAB PO PRN ×2 (14:20)
[2018-04-19] MEDS: CYANOCOBALAMIN 500 MCG TAB PO SCH (14:39)
[2018-04-19] MEDS: NITROGLYCERIN-D5W PMX 50 MG in DEXTROSE/WATER 1 250ML.BAG IV SCH (14:40)
--- NOTE | 2018-04-19 15:26 | P.PN ---
Subjective Progress Note Date: 04/19/18 This is a pleasant 53-year-old gentleman patient of Dr. Shahid Hall/Jak Majano. He has underlying diabetes mellitus, type II uncontrolled, off metformin since August 2017 with last A1c of 11, admitted to the cardiac unit for planned CABG scheduled on 04/18/2018. He also has history of asbestosis with pneumoconioses, COPD, kidney stones . He was evaluated for the dyspnea and exertion that included a stress test and a cardiac cath, cardiac cath showed severely calcified right and left systems and mid RCA stenosis 80-90%, proximal LAD stenosis 80% with mid LAD stenosis 20% ostial left circumflex 70% and proximal circumflex 90% stenosis. Cardiothoracic surgery has been consulted for cardiac revascularization system thru CABG. Patient has had no other complications or symptoms in the past no chest pain has. She shortness of breath and exertion, no edema, no eye issues, no CKD no prior history of CVA and CA CHF or history of DVT or PE in the past. Patient does not require any O2 requirements, nausea devices for ambulation prior to admission. 04/19: Yesterday, patient underwent urgent coronary artery bypass grafting with 3 vessels, left internal mammary artery to left anterior descending artery, reverse saphenous vein graft to the posterior lateral branch, radial artery to the obtuse marginal artery. Patient is now seen in the intensive care unit. He was successfully extubated this morning. He has not required vasopressors. Capillary blood glucose between 131 and 159. Hemoglobin is stable at 11. Patient remains with [address], right sided Cordis, Bhagat catheter , AV epicardial pacemaker wires. The patient is awake. He has some generalized discomfort. Review Of Systems: Constitutional: No fever, no chills, no night sweats. No weight change. + weakness, fatigue or lethargy. EENT: No headache. No blurred vision or double vision, no loss of vision. No loss of Hearing, no ringing in the ears, no dizziness. No nasal drainage or congestion. No epistaxis. No sore throat. Lungs: +shortness of breath, +cough, + sputum production. Cardiovascular: + chest pain, no lower extremity edema. No palpitations. No paroxysmal nocturnal dyspnea. No orthopnea. No lightheadedness or dizziness. No syncopal episodes. Abdominal: No abdominal pain. No nausea, vomiting. No diarrhea. No constipation. No bloody or tarry stools. No loss of appetite. Genitourinary: No dysuria, increased frequency, urgency. No urinary retention. Musculoskeletal: No myalgias. No muscle weakness, no gait dysfunction, no frequent falls. No back pain. No neck pain. Integumentary: + wounds, no lesions. No rash or pruritus. No unusual bruising. No change in hair or nails. Neurologic: No aphasia. No facial droop. No change in mentation. No head injury. No headache. No paralysis. No paresthesia. Psychiatric: No depression. No anxiety. No mood swings. Endocrine: No abnormal blood sugars. No weight change. No excessive sweating or thirst. No cold intolerance. No weight change. Objective - Vital Signs Vital signs: Vital Signs Temp 99.0 F 04/19/18 08:00 Pulse 84 04/19/18 09:00 Resp 16 04/19/18 09:00 BP 128/52 04/19/18 09:00 Pulse Ox 98 04/19/18 09:00 Intake & Output 04/18/18 04/19/18 04/19/18 18:59 06:59 18:59 Intake Total 379.573 6083.304 357.101 Output Total 2525 1404 277 Balance -2066.902 1055.304 80.101 Weight 84.6 kg Intake: IV 439 2108 340.0 ACETAMINOPHEN IV (For NPO 300 ) 1,000 mg In Empty Bag 1 bag @ 400 mls/hr IVPB Q6HR [facility] Rx#:[id number] Albumin Human 25% 50 ml 500 In Empty Bag 1 bag @ 100 mls/hr IVPB ONCE ONE Rx#: [id number] CO/CI 140 350 60 Lactated Ringers 1,000 ml 200 550 150 @ 20 mls/hr IV .Q24H [facility] Rx#:[id number] Magnesium Sulfate-D5w Pmx 100 100 1 gm In Dextrose/Water 1 100ml.bag @ 100 mls/hr IVPB Q1H [facility] Rx#: [id number] Nitroglycerin-D5w Pmx 50 3.0 mg In Dextrose/Water 1 250ml.bag @ 5 MCG/MIN 1.5 mls/hr IV .Q24H ONE Rx#: [id number] Potassium Chloride 10 meq 200 In Water For Injection 1 100ml.bag @ 100 mls/hr IVPB Q1H [facility] Rx#: [id number] Pressure bags 36 108 27 Intake, IV Titration 19.098 351.304 17.101 Amount Clevidipine Butyrate 25 18.467 67.600 mg In Empty Bag 1 bag @ 1 MG/HR 2 mls/hr IV .Q24H [facility] Rx#:[id number] Dexmedetomidine/0.9% NaCl 135.901 (Pmx) 400 mcg In Empty Bag 1 bag @ Titrate IV . Q0M [facility] Rx#:[id number] Insulin Regular 100 unit 38.418 9.933 In Sodium Chloride 0.9% 100 ml @ Per Protocol IV .Q0M [facility] Rx#:[id number] Propofol 1,000 mg In 0.631 109.385 7.168 Empty Bag 1 bag @ Titrate IV .Q0M [facility] Rx#: [id number] Output: Chest Tube Drainage 145 286 10 Chest Tube Mediastinal 90 154 10 Pleural Catheter Left 55 132 0 Gastric Drainage 100 Drainage 60 drain left forearm 60 Urine 1380 1058 167 Estimated Blood Loss 1000 Other: Voiding Method Indwelling Catheter ABP, PAP, CO, CI - Last Documented Arterial Blood Pressure 141/74 Pulmonary Artery Pressure 28/15 Cardiac Output 4.1 Cardiac Index 2.1 - Exam General appearance: cooperative, no acute distress - EENT Eyes: anicteric sclerae, EOMI, PERRLA, dentition normal, normal appearance ENT: NA/AT, normal oropharynx - Neck Neck: no lymphadenopathy, normal ROM, no other, no rigidity, no stridor, no thyromegaly, positive right Cordis - Respiratory Respiratory: bilateral: CTA, negative: diminished, dullness - Cardiovascular Rhythm: regular Heart sounds: normal: S1, S2 Abnormal Heart Sounds: no systolic murmur, no diastolic murmur, no rub, no S3 Gallop, no S4 Gallop, no click, no other, [address], pacemaker wires - Gastrointestinal General gastrointestinal: normal bowel sounds, soft - Genitourinary Male genitourinary: scrotal edema (None), Bhagat catheter in place - Integumentary Integumentary: no calor, no cellulitis, no cyanotic, decreased turgor, no flushed, no jaundiced, normal, no normal turgor, no pale, no rash, no ulcer - Neurologic Neurologic: CNII-XII intact, focal deficits - Psychiatric Psychiatric: A&O x's 3, appropriate affect - Labs CBC & Chem 7: 04/19/18 04:10 04/19/18 04:10 Labs: Abnormal Lab Results - Last 24 Hours (Table) 04/17/18 04/18/18 04/18/18 Range/Units 05:35 08:44 09:55 WBC (3.8-10.6) k/uL RBC (4.30-5.90) m/uL Hgb (13.0-17.5) gm/dL Hct (39.0-53.0) % Neutrophils # (1.3-7.7) k/uL Lymphocytes # (1.0-4.8) k/uL INR (<1.2) APTT (22.0-30.0) sec ABG pH (7.35-7.45) ABG pCO2 (35-45) mmHg ABG pO2 116 H (83-108) mmHg ABG HCO3 (21-25) mmol/L ABG Total CO2 26 H 26 H (19-24) mmol/L ABG O2 Saturation 97.6 H 98.4 H (94-97) % ABG Hematocrit (34.0-46.0) % ABG Sodium (135-146) mmol/L ABG Potassium (3.4-4.5) mmol/L ABG Ionized Calcium (4.5-5.3) mg/dL ABG Glucose 232 H 208 H (75-99) mg/dL ABG Lactic Acid (0.5-1.6) mmol/L Hemoglobin (13.0-17.5) gm/dL Sodium (137-145) mmol/L Creatinine (0.66-1.25) mg/dL Glucose (74-99) mg/dL POC Glucose (mg/dL) (75-99) mg/dL Calcium (8.4-10.2) mg/dL Magnesium (1.6-2.3) mg/dL AST (17-59) U/L Alkaline Phosphatase (38-126) U/L Total Protein (6.3-8.2) g/dL Albumin (3.5-5.0) g/dL Arterial Blood Potassium (3.4-4.5) mmol/L Arterial Blood Glucose 232 H 208 H (75-99) mg/dL Crossmatch See Detail 04/18/18 04/18/18 04/18/18 Range/Units 10:45 11:14 11:47 WBC (3.8-10.6) k/uL RBC (4.30-5.90) m/uL Hgb (13.0-17.5) gm/dL Hct (39.0-53.0) % Neutrophils # (1.3-7.7) k/uL Lymphocytes # (1.0-4.8) k/uL INR (<1.2) APTT (22.0-30.0) sec ABG pH (7.35-7.45) ABG pCO2 (35-45) mmHg ABG pO2 >420 H 315 H 384 H (83-108) mmHg ABG HCO3 26 H 26 H (21-25) mmol/L ABG Total CO2 27 H 27 H (19-24) mmol/L ABG O2 Saturation 100.0 H 100.0 H 99.9 H (94-97) % ABG Hematocrit 31 L 33 L 33 L (34.0-46.0) % ABG Sodium 130 L 134 L 134 L (135-146) mmol/L ABG Potassium 5.0 H (3.4-4.5) mmol/L ABG Ionized Calcium 4.2 L 4.3 L 4.3 L (4.5-5.3) mg/dL ABG Glucose 233 H 206 H 199 H (75-99) mg/dL ABG Lactic Acid 1.8 H 2.0 H 2.1 H (0.5-1.6) mmol/L Hemoglobin 10.2 L 10.7 L 10.9 L (13.0-17.5) gm/dL Sodium (137-145) mmol/L Creatinine (0.66-1.25) mg/dL Glucose (74-99) mg/dL POC Glucose (mg/dL) (75-99) mg/dL Calcium (8.4-10.2) mg/dL Magnesium (1.6-2.3) mg/dL AST (17-59) U/L Alkaline Phosphatase (38-126) U/L Total Protein (6.3-8.2) g/dL Albumin (3.5-5.0) g/dL Arterial Blood Potassium 5.0 H (3.4-4.5) mmol/L Arterial Blood Glucose 233 H 206 H 199 H (75-99) mg/dL Crossmatch 04/18/18 04/18/18 04/18/18 Range/Units 12:17 12:55 13:50 WBC (3.8-10.6) k/uL RBC (4.30-5.90) m/uL Hgb (13.0-17.5) gm/dL Hct (39.0-53.0) % Neutrophils # (1.3-7.7) k/uL Lymphocytes # (1.0-4.8) k/uL INR (<1.2) APTT (22.0-30.0) sec ABG pH (7.35-7.45) ABG pCO2 (35-45) mmHg ABG pO2 417 H 412 H 111 H (83-108) mmHg ABG HCO3 26 H 27 H 26 H (21-25) mmol/L ABG Total CO2 27 H 28 H 27 H (19-24) mmol/L ABG O2 Saturation 100.0 H 100.0 H 98.5 H (94-97) % ABG Hematocrit 33 L 31 L 33 L (34.0-46.0) % ABG Sodium 134 L (135-146) mmol/L ABG Potassium (3.4-4.5) mmol/L ABG Ionized Calcium 4.4 L 4.2 L 3.6 L (4.5-5.3) mg/dL ABG Glucose 197 H 188 H 164 H (75-99) mg/dL ABG Lactic Acid 1.9 H (0.5-1.6) mmol/L Hemoglobin 10.8 L 10.0 L 10.6 L (13.0-17.5) gm/dL Sodium (137-145) mmol/L Creatinine (0.66-1.25) mg/dL Glucose (74-99) mg/dL POC Glucose (mg/dL) (75-99) mg/dL Calcium (8.4-10.2) mg/dL Magnesium (1.6-2.3) mg/dL AST (17-59) U/L Alkaline Phosphatase (38-126) U/L Total Protein (6.3-8.2) g/dL Albumin (3.5-5.0) g/dL Arterial Blood Potassium (3.4-4.5) mmol/L Arterial Blood Glucose 197 H 188 H 164 H (75-99) mg/dL Crossmatch 04/18/18 04/18/18 04/18/18 Range/Units 14:55 14:55 14:55 WBC (3.8-10.6) k/uL RBC 3.66 L (4.30-5.90) m/uL Hgb 11.0 L D (13.0-17.5) gm/dL Hct 32.2 L (39.0-53.0) % Neutrophils # (1.3-7.7) k/uL Lymphocytes # (1.0-4.8) k/uL INR 1.2 H (<1.2) APTT 31.2 H (22.0-30.0) sec ABG pH (7.35-7.45) ABG pCO2 (35-45) mmHg ABG pO2 (83-108) mmHg ABG HCO3 (21-25) mmol/L ABG Total CO2 (19-24) mmol/L ABG O2 Saturation (94-97) % ABG Hematocrit (34.0-46.0) % ABG Sodium (135-146) mmol/L ABG Potassium (3.4-4.5) mmol/L ABG Ionized Calcium (4.5-5.3) mg/dL ABG Glucose (75-99) mg/dL ABG Lactic Acid (0.5-1.6) mmol/L Hemoglobin (13.0-17.5) gm/dL Sodium (137-145) mmol/L Creatinine 0.61 L (0.66-1.25) mg/dL Glucose 112 H (74-99) mg/dL POC Glucose (mg/dL) (75-99) mg/dL Calcium 7.8 L (8.4-10.2) mg/dL Magnesium 2.4 H (1.6-2.3) mg/dL AST (17-59) U/L Alkaline Phosphatase 36 L (38-126) U/L Total Protein 4.5 L (6.3-8.2) g/dL Albumin 2.6 L (3.5-5.0) g/dL Arterial Blood Potassium (3.4-4.5) mmol/L Arterial Blood Glucose (75-99) mg/dL Crossmatch 04/18/18 04/18/18 04/18/18 Range/Units 14:56 15:17 15:58 WBC (3.8-10.6) k/uL RBC (4.30-5.90) m/uL Hgb (13.0-17.5) gm/dL Hct (39.0-53.0) % Neutrophils # (1.3-7.7) k/uL Lymphocytes # (1.0-4.8) k/uL INR (<1.2) APTT (22.0-30.0) sec ABG pH (7.35-7.45) ABG pCO2 50 H (35-45) mmHg ABG pO2 (83-108) mmHg ABG HCO3 28 H (21-25) mmol/L ABG Total CO2 30 H (19-24) mmol/L ABG O2 Saturation (94-97) % ABG Hematocrit (34.0-46.0) % ABG Sodium (135-146) mmol/L ABG Potassium (3.4-4.5) mmol/L ABG Ionized Calcium (4.5-5.3) mg/dL ABG Glucose (75-99) mg/dL ABG Lactic Acid (0.5-1.6) mmol/L Hemoglobin (13.0-17.5) gm/dL Sodium (137-145) mmol/L Creatinine (0.66-1.25) mg/dL Glucose (74-99) mg/dL POC Glucose (mg/dL) 112 H 113 H (75-99) mg/dL Calcium (8.4-10.2) mg/dL Magnesium (1.6-2.3) mg/dL AST (17-59) U/L Alkaline Phosphatase (38-126) U/L Total Protein (6.3-8.2) g/dL Albumin (3.5-5.0) g/dL Arterial Blood Potassium (3.4-4.5) mmol/L Arterial Blood Glucose (75-99) mg/dL Crossmatch 04/18/18 04/18/18 04/18/18 Range/Units 16:59 17:01 18:23 WBC (3.8-10.6) k/uL RBC (4.30-5.90) m/uL Hgb (13.0-17.5) gm/dL Hct (39.0-53.0) % Neutrophils # (1.3-7.7) k/uL Lymphocytes # (1.0-4.8) k/uL INR (<1.2) APTT (22.0-30.0) sec ABG pH 7.27 L (7.35-7.45) ABG pCO2 57 H (35-45) mmHg ABG pO2 53 L* (83-108) mmHg ABG HCO3 26 H (21-25) mmol/L ABG Total CO2 28 H (19-24) mmol/L ABG O2 Saturation 80.9 L (94-97) % ABG Hematocrit (34.0-46.0) % ABG Sodium (135-146) mmol/L ABG Potassium (3.4-4.5) mmol/L ABG Ionized Calcium (4.5-5.3) mg/dL ABG Glucose (75-99) mg/dL ABG Lactic Acid (0.5-1.6) mmol/L Hemoglobin (13.0-17.5) gm/dL Sodium (137-145) mmol/L Creatinine (0.66-1.25) mg/dL Glucose (74-99) mg/dL POC Glucose (mg/dL) 156 H 129 H (75-99) mg/dL Calcium (8.4-10.2) mg/dL Magnesium (1.6-2.3) mg/dL AST (17-59) U/L Alkaline Phosphatase (38-126) U/L Total Protein (6.3-8.2) g/dL Albumin (3.5-5.0) g/dL Arterial Blood Potassium (3.4-4.5) mmol/L Arterial Blood Glucose (75-99) mg/dL Crossmatch 04/18/18 04/18/18 04/18/18 Range/Units 18:51 19:28 20:29 WBC (3.8-10.6) k/uL RBC (4.30-5.90) m/uL Hgb (13.0-17.5) gm/dL Hct (39.0-53.0) % Neutrophils # (1.3-7.7) k/uL Lymphocytes # (1.0-4.8) k/uL INR (<1.2) APTT (22.0-30.0) sec ABG pH (7.35-7.45) ABG pCO2 (35-45) mmHg ABG pO2 63 L (83-108) mmHg ABG HCO3 26 H (21-25) mmol/L ABG Total CO2 28 H (19-24) mmol/L ABG O2 Saturation 90.9 L (94-97) % ABG Hematocrit (34.0-46.0) % ABG Sodium (135-146) mmol/L ABG Potassium (3.4-4.5) mmol/L ABG Ionized Calcium (4.5-5.3) mg/dL ABG Glucose (75-99) mg/dL ABG Lactic Acid (0.5-1.6) mmol/L Hemoglobin (13.0-17.5) gm/dL Sodium (137-145) mmol/L Creatinine (0.66-1.25) mg/dL Glucose (74-99) mg/dL POC Glucose (mg/dL) 193 H 190 H (75-99) mg/dL Calcium (8.4-10.2) mg/dL Magnesium (1.6-2.3) mg/dL AST (17-59) U/L Alkaline Phosphatase (38-126) U/L Total Protein (6.3-8.2) g/dL Albumin (3.5-5.0) g/dL Arterial Blood Potassium (3.4-4.5) mmol/L Arterial Blood Glucose (75-99) mg/dL Crossmatch 04/18/18 04/18/18 04/18/18 Range/Units 20:30 20:30 21:04 WBC 10.9 H (3.8-10.6) k/uL RBC 3.96 L (4.30-5.90) m/uL Hgb 12.1 L (13.0-17.5) gm/dL Hct 35.2 L (39.0-53.0) % Neutrophils # 9.4 H (1.3-7.7) k/uL Lymphocytes # 0.9 L (1.0-4.8) k/uL INR (<1.2) APTT (22.0-30.0) sec ABG pH (7.35-7.45) ABG pCO2 (35-45) mmHg ABG pO2 (83-108) mmHg ABG HCO3 (21-25) mmol/L ABG Total CO2 (19-24) mmol/L ABG O2 Saturation (94-97) % ABG Hematocrit (34.0-46.0) % ABG Sodium (135-146) mmol/L ABG Potassium (3.4-4.5) mmol/L ABG Ionized Calcium (4.5-5.3) mg/dL ABG Glucose (75-99) mg/dL ABG Lactic Acid (0.5-1.6) mmol/L Hemoglobin (13.0-17.5) gm/dL Sodium 134 L (137-145) mmol/L Creatinine 0.57 L (0.66-1.25) mg/dL Glucose 172 H (74-99) mg/dL POC Glucose (mg/dL) 192 H (75-99) mg/dL Calcium (8.4-10.2) mg/dL Magnesium (1.6-2.3) mg/dL AST 84 H (17-59) U/L Alkaline Phosphatase (38-126) U/L Total Protein 4.9 L (6.3-8.2) g/dL Albumin 3.0 L (3.5-5.0) g/dL Arterial Blood Potassium (3.4-4.5) mmol/L Arterial Blood Glucose (75-99) mg/dL Crossmatch 04/18/18 04/18/18 04/19/18 Range/Units 22:01 23:48 00:30 WBC (3.8-10.6) k/uL RBC (4.30-5.90) m/uL Hgb (13.0-17.5) gm/dL Hct (39.0-53.0) % Neutrophils # (1.3-7.7) k/uL Lymphocytes # (1.0-4.8) k/uL INR (<1.2) APTT (22.0-30.0) sec ABG pH (7.35-7.45) ABG pCO2 (35-45) mmHg ABG pO2 (83-108) mmHg ABG HCO3 (21-25) mmol/L ABG Total CO2 (19-24) mmol/L ABG O2 Saturation (94-97) % ABG Hematocrit (34.0-46.0) % ABG Sodium (135-146) mmol/L ABG Potassium (3.4-4.5) mmol/L ABG Ionized Calcium (4.5-5.3) mg/dL ABG Glucose (75-99) mg/dL ABG Lactic Acid (0.5-1.6) mmol/L Hemoglobin (13.0-17.5) gm/dL Sodium (137-145) mmol/L Creatinine (0.66-1.25) mg/dL Glucose (74-99) mg/dL POC Glucose (mg/dL) 175 H 144 H 141 H (75-99) mg/dL Calcium (8.4-10.2) mg/dL Magnesium (1.6-2.3) mg/dL AST (17-59) U/L Alkaline Phosphatase (38-126) U/L Total Protein (6.3-8.2) g/dL Albumin (3.5-5.0) g/dL Arterial Blood Potassium (3.4-4.5) mmol/L Arterial Blood Glucose (75-99) mg/dL Crossmatch 04/19/18 04/19/18 04/19/18 Range/Units 01:25 02:15 03:03 WBC (3.8-10.6) k/uL RBC (4.30-5.90) m/uL Hgb (13.0-17.5) gm/dL Hct (39.0-53.0) % Neutrophils # (1.3-7.7) k/uL Lymphocytes # (1.0-4.8) k/uL INR (<1.2) APTT (22.0-30.0) sec ABG pH (7.35-7.45) ABG pCO2 (35-45) mmHg ABG pO2 (83-108) mmHg ABG HCO3 (21-25) mmol/L ABG Total CO2 (19-24) mmol/L ABG O2 Saturation (94-97) % ABG Hematocrit (34.0-46.0) % ABG Sodium (135-146) mmol/L ABG Potassium (3.4-4.5) mmol/L ABG Ionized Calcium (4.5-5.3) mg/dL ABG Glucose (75-99) mg/dL ABG Lactic Acid (0.5-1.6) mmol/L Hemoglobin (13.0-17.5) gm/dL Sodium (137-145) mmol/L Creatinine (0.66-1.25) mg/dL Glucose (74-99) mg/dL POC Glucose (mg/dL) 136 H 128 H 137 H (75-99) mg/dL Calcium (8.4-10.2) mg/dL Magnesium (1.6-2.3) mg/dL AST (17-59) U/L Alkaline Phosphatase (38-126) U/L Total Protein (6.3-8.2) g/dL Albumin (3.5-5.0) g/dL Arterial Blood Potassium (3.4-4.5) mmol/L Arterial Blood Glucose (75-99) mg/dL Crossmatch 04/19/18 04/19/18 04/19/18 Range/Units 04:07 04:10 04:10 WBC (3.8-10.6) k/uL RBC 3.66 L (4.30-5.90) m/uL Hgb 11.0 L (13.0-17.5) gm/dL Hct 32.0 L (39.0-53.0) % Neutrophils # (1.3-7.7) k/uL Lymphocytes # 0.8 L (1.0-4.8) k/uL INR 1.2 H (<1.2) APTT (22.0-30.0) sec ABG pH (7.35-7.45) ABG pCO2 (35-45) mmHg ABG pO2 (83-108) mmHg ABG HCO3 (21-25) mmol/L ABG Total CO2 (19-24) mmol/L ABG O2 Saturation (94-97) % ABG Hematocrit (34.0-46.0) % ABG Sodium (135-146) mmol/L ABG Potassium (3.4-4.5) mmol/L ABG Ionized Calcium (4.5-5.3) mg/dL ABG Glucose (75-99) mg/dL ABG Lactic Acid (0.5-1.6) mmol/L Hemoglobin (13.0-17.5) gm/dL Sodium (137-145) mmol/L Creatinine (0.66-1.25) mg/dL Glucose (74-99) mg/dL POC Glucose (mg/dL) 128 H (75-99) mg/dL Calcium (8.4-10.2) mg/dL Magnesium (1.6-2.3) mg/dL AST (17-59) U/L Alkaline Phosphatase (38-126) U/L Total Protein (6.3-8.2) g/dL Albumin (3.5-5.0) g/dL Arterial Blood Potassium (3.4-4.5) mmol/L Arterial Blood Glucose (75-99) mg/dL Crossmatch 04/19/18 04/19/18 04/19/18 Range/Units 04:10 04:56 05:07 WBC (3.8-10.6) k/uL RBC (4.30-5.90) m/uL Hgb (13.0-17.5) gm/dL Hct (39.0-53.0) % Neutrophils # (1.3-7.7) k/uL Lymphocytes # (1.0-4.8) k/uL INR (<1.2) APTT (22.0-30.0) sec ABG pH 7.48 H (7.35-7.45) ABG pCO2 33 L (35-45) mmHg ABG pO2 (83-108) mmHg ABG HCO3 (21-25) mmol/L ABG Total CO2 26 H (19-24) mmol/L ABG O2 Saturation 97.8 H (94-97) % ABG Hematocrit (34.0-46.0) % ABG Sodium (135-146) mmol/L ABG Potassium (3.4-4.5) mmol/L ABG Ionized Calcium (4.5-5.3) mg/dL ABG Glucose (75-99) mg/dL ABG Lactic Acid (0.5-1.6) mmol/L Hemoglobin (13.0-17.5) gm/dL Sodium 134 L (137-145) mmol/L Creatinine 0.56 L (0.66-1.25) mg/dL Glucose 120 H (74-99) mg/dL POC Glucose (mg/dL) 136 H (75-99) mg/dL Calcium (8.4-10.2) mg/dL Magnesium (1.6-2.3) mg/dL AST 74 H (17-59) U/L Alkaline Phosphatase (38-126) U/L Total Protein 5.1 L (6.3-8.2) g/dL Albumin 3.2 L (3.5-5.0) g/dL Arterial Blood Potassium (3.4-4.5) mmol/L Arterial Blood Glucose (75-99) mg/dL Crossmatch 04/19/18 04/19/18 04/19/18 Range/Units 06:16 07:09 08:02 WBC (3.8-10.6) k/uL RBC (4.30-5.90) m/uL Hgb (13.0-17.5) gm/dL Hct (39.0-53.0) % Neutrophils # (1.3-7.7) k/uL Lymphocytes # (1.0-4.8) k/uL INR (<1.2) APTT (22.0-30.0) sec ABG pH (7.35-7.45) ABG pCO2 (35-45) mmHg ABG pO2 (83-108) mmHg ABG HCO3 (21-25) mmol/L ABG Total CO2 (19-24) mmol/L ABG O2 Saturation (94-97) % ABG Hematocrit (34.0-46.0) % ABG Sodium (135-146) mmol/L ABG Potassium (3.4-4.5) mmol/L ABG Ionized Calcium (4.5-5.3) mg/dL ABG Glucose (75-99) mg/dL ABG Lactic Acid (0.5-1.6) mmol/L Hemoglobin (13.0-17.5) gm/dL Sodium (137-145) mmol/L Creatinine (0.66-1.25) mg/dL Glucose (74-99) mg/dL POC Glucose (mg/dL) 153 H 159 H 140 H (75-99) mg/dL Calcium (8.4-10.2) mg/dL Magnesium (1.6-2.3) mg/dL AST (17-59) U/L Alkaline Phosphatase (38-126) U/L Total Protein (6.3-8.2) g/dL Albumin (3.5-5.0) g/dL Arterial Blood Potassium (3.4-4.5) mmol/L Arterial Blood Glucose (75-99) mg/dL Crossmatch 04/19/18 04/19/18 Range/Units 08:59 09:20 WBC (3.8-10.6) k/uL RBC (4.30-5.90) m/uL Hgb (13.0-17.5) gm/dL Hct (39.0-53.0) % Neutrophils # (1.3-7.7) k/uL Lymphocytes # (1.0-4.8) k/uL INR (<1.2) APTT (22.0-30.0) sec ABG pH (7.35-7.45) ABG pCO2 (35-45) mmHg ABG pO2 (83-108) mmHg ABG HCO3 (21-25) mmol/L ABG Total CO2 (19-24) mmol/L ABG O2 Saturation (94-97) % ABG Hematocrit (34.0-46.0) % ABG Sodium (135-146) mmol/L ABG Potassium (3.4-4.5) mmol/L ABG Ionized Calcium (4.5-5.3) mg/dL ABG Glucose (75-99) mg/dL ABG Lactic Acid (0.5-1.6) mmol/L Hemoglobin (13.0-17.5) gm/dL Sodium (137-145) mmol/L Creatinine (0.66-1.25) mg/dL Glucose (74-99) mg/dL POC Glucose (mg/dL) 127 H 131 H (75-99) mg/dL Calcium (8.4-10.2) mg/dL Magnesium (1.6-2.3) mg/dL AST (17-59) U/L Alkaline Phosphatase (38-126) U/L Total Protein (6.3-8.2) g/dL Albumin (3.5-5.0) g/dL Arterial Blood Potassium (3.4-4.5) mmol/L Arterial Blood Glucose (75-99) mg/dL Crossmatch Microbiology - Last 24 Hours (Table) 04/16/18 17:00 Nasal Screen MRSA/MSSA - Final Nasal Swab Assessment and Plan Plan: 1. Severe CAD requiring urgent coronary artery bypass grafting with 3 vessels, left internal mammary artery to left anterior descending artery, reverse saphenous vein graft to the posterior lateral branch, radial artery to the obtuse marginal artery. Intensive care management by Dr. Chowdhury. Continue current management per cardiothoracic team. Incentive spirometry be utilizing opiate would be utilized patient will be on Lipitor 80 mg daily, and aspirin 325 mg daily, Lopressor 2. Severe uncontrolled diabetes mellitus, A1c of 11.9 not on any medication regimen prior to admission. Patient is currently on insulin drip protocol. 3. History of kidney stones, CKD stage I no current symptoms 4. History of asbestosis, requirement of maintenance breo, pulmonary DrSunitha S/P Melecio following 5. Hyperlipidemia with tried before for LDL calculated unknown, we would continue on Lipitor 80 mg daily, and follow LDL measured as an outpatient 6. BPH without lower tract symptomatology, next GI prophylaxis DVT prophylaxis Discharge plan: most likely return home Impression and plan of care have been directed as dictated by the signing physician. Zahraa Nation nurse practitioner acting as scribe for signing physician.
[2018-04-19 15:33] LABS: Glucose,Whole Blood 134 mg/dL (75-99)
[2018-04-19 17:10] LABS: Glucose,Whole Blood 119 mg/dL (75-99)
[2018-04-19 18:13] LABS: Glucose,Whole Blood 106 mg/dL (75-99)
[2018-04-19 19:40] LABS: Glucose,Whole Blood 128 mg/dL (75-99)
[2018-04-19] MEDS: SENNOSIDES-DOCUSATE SODIUM 1 EACH TAB PO SCH (20:19)
[2018-04-19 20:30] LABS: Glucose,Whole Blood 160 mg/dL (75-99)
[2018-04-19 21:17] LABS: Glucose,Whole Blood 158 mg/dL (75-99)
[2018-04-19 22:18] LABS: Glucose,Whole Blood 149 mg/dL (75-99)
[2018-04-19 23:06] LABS: Glucose,Whole Blood 147 mg/dL (75-99)
[2018-04-20] MEDS: HEPARIN SODIUM,PORCINE 5,000 UNIT/ML 1 ML VIAL SQ SCH ×3 (00:13→16:32)
[2018-04-20] MEDS: KETOROLAC 30 MG/ML 1 ML VIAL IVP SCH ×4 (00:13→17:47)
[2018-04-20 00:19] LABS: Glucose,Whole Blood 125 mg/dL (75-99)
[2018-04-20 01:23] LABS: Glucose,Whole Blood 114 mg/dL (75-99)
[2018-04-20 02:22] LABS: Glucose,Whole Blood 122 mg/dL (75-99)
[2018-04-20 03:10] LABS: Glucose,Whole Blood 123 mg/dL (75-99)
[2018-04-20] MEDS: traMADol 50 MG TAB PO PRN ×4 (03:34→20:56)
[2018-04-20 04:33] LABS: Glucose,Whole Blood 136 mg/dL (75-99)
[2018-04-20 04:41] LABS: Basophils % (A) 0 %; Eosinophils # (A) 0.2 k/uL (0-0.7); Eosinophils % (A) 2 %; HCT 34.3 % (39.0-53.0); HGB 11.3 gm/dL (13.0-17.5); Lymphocytes # (A) 1.2 k/uL (1.0-4.8); Lymphocytes % (A) 13 %; MCH 29.4 pg (25.0-35.0); MCHC 33.1 g/dL (31.0-37.0); MCV 88.8 fL (80.0-100.0); Mean Platelet Volume 7.3; Monocytes # (A) 0.5 k/uL (0-1.0); Monocytes % (A) 5 %; Neutrophils # (A) 7.6 k/uL (1.3-7.7); Neutrophils % (A) 79 %; Platelet Count 177 k/uL (150-450); RBC 3.86 m/uL (4.30-5.90); RDW 13.4 % (11.5-15.5); WBC 9.6 k/uL (3.8-10.6)
[2018-04-20 04:42] LABS: Ionized Calcium 5.1 mg/dL (4.5-5.3)
[2018-04-20 04:55] LABS: ALT 36 U/L (21-72); AST 46 U/L (17-59); Albumin 2.7 g/dL (3.5-5.0); Alkaline Phosphatase 48 U/L (38-126); Anion Gap 8 mmol/L; Blood Urea Nitrogen 9 mg/dL (9-20); Calcium 8.7 mg/dL (8.4-10.2); Carbon Dioxide 23 mmol/L (22-30); Chloride 107 mmol/L (98-107); Glucose 132 mg/dL (74-99); Magnesium 1.8 mg/dL (1.6-2.3); Potassium 4.3 mmol/L (3.5-5.1); Sodium 138 mmol/L (137-145); Total Bilirubin 0.7 mg/dL (0.2-1.3); Total Protein 4.8 g/dL (6.3-8.2)
[2018-04-20 05:12] LABS: Glucose,Whole Blood 123 mg/dL (75-99)
[2018-04-20 06:06] LABS: Glucose,Whole Blood 153 mg/dL (75-99)
[2018-04-20] MEDS: MAGNESIUM SULFATE-D5W PMX 1 GM in DEXTROSE/WATER 1 100ML.BAG IVPB SCH ×2 (06:52→09:26)
[2018-04-20] MEDS: PANTOPRAZOLE 40 MG TABLET PO SCH (06:54)
[2018-04-20 07:13] LABS: Glucose,Whole Blood 149 mg/dL (75-99)
--- NOTE | 2018-04-20 07:16 | P.PN ---
Subjective Progress Note Date: 04/20/18 Principal diagnosis: Severe CAD This is a pleasant 53-year-old gentleman who was admitted to the hospital and underwent elective CABG. The patient was experiencing exertional dyspnea concerning for angina and he underwent a heart catheterization which revealed heavily calcified left and right coronary systems with severe triple-vessel coronary artery disease. He is diabetic. He underwent CABG 3 with CONNER into LAD, saphenous vein graft into posterior lateral branch, and radial artery to obtuse marginal branch. This is postoperative day she day #2. The patient was extubated last night. He is hemodynamically stable. He has been maintaining normal sinus mechanism. The urine output is good as well as. He is on dual antiplatelet therapy along with high intensity statin as well as metoprolol and lisinopril. The vitals are within normal limits. The patient overall is doing good progress. We'll follow-up with a chest x-ray which was done earlier today. Objective - Vital Signs Vital signs: Vital Signs Temp 98.5 F 04/20/18 04:00 Pulse 85 04/20/18 07:00 Resp 25 H 04/20/18 07:00 BP 118/83 04/20/18 07:00 Pulse Ox 93 L 04/20/18 07:00 Intake & Output 04/19/18 04/20/18 04/20/18 18:59 06:59 18:59 Intake Total 963.860 629.472 147.837 Output Total 1812 990 35 Balance -848.140 -360.528 112.837 Weight 84.6 kg 84.3 kg Intake: IV 870.0 612 146 ACETAMINOPHEN IV (For NPO 100 100 ) 1,000 mg In Empty Bag 1 bag @ 400 mls/hr IVPB Q6HR [facility] Rx#:[id number] CO/CI 60 Lactated Ringers 1,000 ml 520 440 40 @ 20 mls/hr IV .Q24H [facility] Rx#:[id number] Magnesium Sulfate-D5w Pmx 100 100 1 gm In Dextrose/Water 1 100ml.bag @ 100 mls/hr IVPB Q1H [facility] Rx#: [id number] Nitroglycerin-D5w Pmx 50 3.0 mg In Dextrose/Water 1 250ml.bag @ 5 MCG/MIN 1.5 mls/hr IV .Q24H [facility] Rx#: [id number] Pressure bags 87 72 6 Intake, IV Titration 93.860 17.472 1.837 Amount Clevidipine Butyrate 25 16 mg In Empty Bag 1 bag @ 1 MG/HR 2 mls/hr IV .Q24H [facility] Rx#:[id number] Dexmedetomidine/0.9% NaCl 36.872 (Pmx) 400 mcg In Empty Bag 1 bag @ Titrate IV . Q0M [facility] Rx#:[id number] Insulin Regular 100 unit 33.820 17.472 1.837 In Sodium Chloride 0.9% 100 ml @ Per Protocol IV .Q0M [facility] Rx#:[id number] Propofol 1,000 mg In 7.168 Empty Bag 1 bag @ Titrate IV .Q0M [facility] Rx#: [id number] Output: Chest Tube Drainage 170 170 0 Chest Tube Mediastinal 80 80 0 Pleural Catheter Left 90 90 0 Gastric Drainage 100 Drainage 40 20 drain left forearm 40 20 Urine 1502 800 35 Other: Voiding Method Indwelling Catheter Indwelling Catheter ABP, PAP, CO, CI - Last Documented Arterial Blood Pressure 88/67 Pulmonary Artery Pressure 31/17 Cardiac Output 4.1 Cardiac Index 2.1 - Constitutional General appearance: Present: no acute distress - Respiratory Respiratory: bilateral: diminished - Cardiovascular Rhythm: regular - Labs CBC & Chem 7: 04/20/18 04:14 04/20/18 04:14 Labs: Abnormal Lab Results - Last 24 Hours (Table) 04/19/18 04/19/18 04/19/18 Range/Units 07:09 08:02 08:59 RBC (4.30-5.90) m/uL Hgb (13.0-17.5) gm/dL Hct (39.0-53.0) % Glucose (74-99) mg/dL POC Glucose (mg/dL) 159 H 140 H 127 H (75-99) mg/dL Total Protein (6.3-8.2) g/dL Albumin (3.5-5.0) g/dL 04/19/18 04/19/18 04/19/18 Range/Units 09:20 10:19 11:16 RBC (4.30-5.90) m/uL Hgb (13.0-17.5) gm/dL Hct (39.0-53.0) % Glucose (74-99) mg/dL POC Glucose (mg/dL) 131 H 118 H 168 H (75-99) mg/dL Total Protein (6.3-8.2) g/dL Albumin (3.5-5.0) g/dL 04/19/18 04/19/18 04/19/18 Range/Units 12:59 13:57 15:20 RBC (4.30-5.90) m/uL Hgb (13.0-17.5) gm/dL Hct (39.0-53.0) % Glucose (74-99) mg/dL POC Glucose (mg/dL) 165 H 152 H 134 H (75-99) mg/dL Total Protein (6.3-8.2) g/dL Albumin (3.5-5.0) g/dL 04/19/18 04/19/18 04/19/18 Range/Units 16:58 18:01 19:28 RBC (4.30-5.90) m/uL Hgb (13.0-17.5) gm/dL Hct (39.0-53.0) % Glucose (74-99) mg/dL POC Glucose (mg/dL) 119 H 106 H 128 H (75-99) mg/dL Total Protein (6.3-8.2) g/dL Albumin (3.5-5.0) g/dL 04/19/18 04/19/18 04/19/18 Range/Units 20:14 21:06 22:07 RBC (4.30-5.90) m/uL Hgb (13.0-17.5) gm/dL Hct (39.0-53.0) % Glucose (74-99) mg/dL POC Glucose (mg/dL) 160 H 158 H 149 H (75-99) mg/dL Total Protein (6.3-8.2) g/dL Albumin (3.5-5.0) g/dL 04/19/18 04/20/18 04/20/18 Range/Units 22:54 00:07 01:12 RBC (4.30-5.90) m/uL Hgb (13.0-17.5) gm/dL Hct (39.0-53.0) % Glucose (74-99) mg/dL POC Glucose (mg/dL) 147 H 125 H 114 H (75-99) mg/dL Total Protein (6.3-8.2) g/dL Albumin (3.5-5.0) g/dL 04/20/18 04/20/18 04/20/18 Range/Units 02:10 02:58 04:06 RBC (4.30-5.90) m/uL Hgb (13.0-17.5) gm/dL Hct (39.0-53.0) % Glucose (74-99) mg/dL POC Glucose (mg/dL) 122 H 123 H 136 H (75-99) mg/dL Total Protein (6.3-8.2) g/dL Albumin (3.5-5.0) g/dL 04/20/18 04/20/18 04/20/18 Range/Units 04:14 04:14 05:01 RBC 3.86 L (4.30-5.90) m/uL Hgb 11.3 L (13.0-17.5) gm/dL Hct 34.3 L (39.0-53.0) % Glucose 132 H (74-99) mg/dL POC Glucose (mg/dL) 123 H (75-99) mg/dL Total Protein 4.8 L (6.3-8.2) g/dL Albumin 2.7 L (3.5-5.0) g/dL 04/20/18 Range/Units 05:55 RBC (4.30-5.90) m/uL Hgb (13.0-17.5) gm/dL Hct (39.0-53.0) % Glucose (74-99) mg/dL POC Glucose (mg/dL) 153 H (75-99) mg/dL Total Protein (6.3-8.2) g/dL Albumin (3.5-5.0) g/dL Assessment and Plan Assessment: Assessment #1 severe triple-vessel coronary artery disease and status post CABG #2 ischemic cardiomyopathy with an EF between 40-45% #3 diabetes type 2 #4 dyslipidemia Plan #1 continue the current medical regimen #2 continue aspirin, statin, and beta johanne #3 continue monitor the urine output #4 follow-up on the chest x-ray #5 follow-up on the patient. We will continue following up with the patient.
--- NOTE | 2018-04-20 08:29 | XR ---
EXAMINATION TYPE: XR chest 1V portable DATE OF EXAM: 04/20/2018 COMPARISON: 04/19/2018 HISTORY: SOB, Follow Up FINDINGS: Left-sided chest tube is unchanged in position. Mediastinal drain is in place. Fowler-Dmitriy catheter has been removed with right IJ sheath in place. Endotracheal tube and NG tube have also been removed. Scattered linear atelectasis seen bilaterally. Stable appearance of the cardio-mediastinal structures at this time. No significant pleural effusion appreciated. IMPRESSION: 1. Essentially stable appearance of the chest. Change in tubes and catheters as noted.
[2018-04-20 08:31] LABS: Glucose,Whole Blood 223 mg/dL (75-99)
[2018-04-20] MEDS: SYMBICORT 80-4.5 MCG INHALER INHALATION SCH ×2 (09:19→20:52)
[2018-04-20] MEDS: IPRATROPIUM-ALBUTEROL 3 ML NEB INHALATION SCH ×4 (09:19→20:52)
[2018-04-20 09:30] LABS: Glucose,Whole Blood 221 mg/dL (75-99)
[2018-04-20] MEDS: amLODIPine 5 MG TAB PO SCH (09:39)
[2018-04-20] MEDS: CLOPIDOGREL 75 MG TAB PO SCH (09:39)
[2018-04-20] MEDS: ASPIRIN 325 MG TAB PO SCH (09:39)
[2018-04-20] MEDS: MONTELUKAST 10 MG TAB PO SCH (09:40)
[2018-04-20] MEDS: CYCLOBENZAPRINE 10 MG TAB PO SCH (09:41)
[2018-04-20] MEDS: TAMSULOSIN 0.4 MG CAP.ER.24H PO SCH (09:41)
[2018-04-20] MEDS: ATORVASTATIN 80 MG TAB PO SCH (09:41)
[2018-04-20] MEDS: DOCUSATE 100 MG CAP PO SCH (09:41)
[2018-04-20] MEDS: METOPROLOL TARTRATE 25 MG TAB PO SCH ×3 (09:41→22:46)
[2018-04-20] MEDS: LORATADINE 10 MG TAB PO SCH (09:41)
[2018-04-20] MEDS: MUPIROCIN 2% OINT 22 GM TUBE NASAL SCH ×2 (09:42→20:55)
[2018-04-20 10:16] LABS: Glucose,Whole Blood 219 mg/dL (75-99)
[2018-04-20 11:11] LABS: Glucose,Whole Blood 211 mg/dL (75-99)
[2018-04-20] MEDS ORDERED: FUROSEMIDE 10 MG/ML 2 ML VIAL IV ONE (12:01)
[2018-04-20 12:06] LABS: Glucose,Whole Blood 191 mg/dL (75-99)
[2018-04-20] MEDS: CYANOCOBALAMIN 500 MCG TAB PO SCH (12:32)
[2018-04-20] MEDS: LISINOPRIL 2.5 MG TAB PO SCH (12:32)
[2018-04-20] MEDS: INSULIN ASPART 100 UNIT/ML 1 ML 10 ML VIAL SQ SCH ×5 (12:33→20:55)
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
[2018-04-20] MEDS: INSULIN DETEMIR 100 UNIT/ML 10 ML VIAL SQ SCH (13:47)
--- NOTE | 2018-04-20 14:25 | P.PN ---
Subjective Progress Note Date: 04/20/18 This is a pleasant 53-year-old gentleman patient of Dr. Shahid Hall/Jak Majano. He has underlying diabetes mellitus, type II uncontrolled, off metformin since August 2017 with last A1c of 11, admitted to the cardiac unit for planned CABG scheduled on 04/18/2018. He also has history of asbestosis with pneumoconioses, COPD, kidney stones . He was evaluated for the dyspnea and exertion that included a stress test and a cardiac cath, cardiac cath showed severely calcified right and left systems and mid RCA stenosis 80-90%, proximal LAD stenosis 80% with mid LAD stenosis 20% ostial left circumflex 70% and proximal circumflex 90% stenosis. Cardiothoracic surgery has been consulted for cardiac revascularization system thru CABG. Patient has had no other complications or symptoms in the past no chest pain has. She shortness of breath and exertion, no edema, no eye issues, no CKD no prior history of CVA and ME CHF or history of DVT or PE in the past. Patient does not require any O2 requirements, nausea devices for ambulation prior to admission. 04/19: Yesterday, patient underwent urgent coronary artery bypass grafting with 3 vessels, left internal mammary artery to left anterior descending artery, reverse saphenous vein graft to the posterior lateral branch, radial artery to the obtuse marginal artery. Patient is now seen in the intensive care unit. He was successfully extubated this morning. He has not required vasopressors. Capillary blood glucose between 131 and 159. Hemoglobin is stable at 11. Patient remains with [address], right sided Cordis, Bhagat catheter , AV epicardial pacemaker wires. The patient is awake. He has some generalized discomfort. 04/20: Patient remains in intensive care unit. He has had chest tubes removed, heart line and Cordis. He is eating a diet and this is to be advanced. Blood sugars have been elevated in the 200s and is currently on insulin drip. We'll plan to transition him over to Levemir, scheduled NovoLog and NovoLog scale. Bhagat is currently in place and patient received dose Lasix. Lopressor was increased. We have asked life skills educator to meet with the patient. Review Of Systems: Constitutional: No fever, no chills, no night sweats. No weight change. + weakness, fatigue or lethargy. EENT: No headache. No blurred vision or double vision, no loss of vision. No loss of Hearing, no ringing in the ears, no dizziness. No nasal drainage or congestion. No epistaxis. No sore throat. Lungs: +shortness of breath, +cough, + sputum production. Cardiovascular: + chest pain, no lower extremity edema. No palpitations. No paroxysmal nocturnal dyspnea. No orthopnea. No lightheadedness or dizziness. No syncopal episodes. Abdominal: No abdominal pain. No nausea, vomiting. No diarrhea. No constipation. No bloody or tarry stools. No loss of appetite. Genitourinary: No dysuria, increased frequency, urgency. No urinary retention. Bhagat. Musculoskeletal: No myalgias. No muscle weakness, no gait dysfunction, no frequent falls. No back pain. No neck pain. Integumentary: + wounds, no lesions. No rash or pruritus. No unusual bruising. No change in hair or nails. Neurologic: No aphasia. No facial droop. No change in mentation. No head injury. No headache. No paralysis. No paresthesia. Psychiatric: No depression. No anxiety. No mood swings. Endocrine: + abnormal blood sugars. No weight change. No excessive sweating or thirst. No cold intolerance. Objective - Vital Signs Vital signs: Vital Signs Temp 98.2 F 04/20/18 08:01 Pulse 93 04/20/18 11:00 Resp 22 04/20/18 11:00 BP 143/61 04/20/18 11:00 Pulse Ox 90 L 04/20/18 11:00 Intake & Output 04/19/18 04/20/18 04/20/18 18:59 06:59 18:59 Intake Total 963.860 629.472 295.290 Output Total 1812 990 240 Balance -848.140 -360.528 55.290 Weight 84.6 kg 84.3 kg Intake: IV 870.0 612 284 ACETAMINOPHEN IV (For NPO 100 100 ) 1,000 mg In Empty Bag 1 bag @ 400 mls/hr IVPB Q6HR [facility] Rx#:[id number] CO/CI 60 Lactated Ringers 1,000 ml 520 440 160 @ 20 mls/hr IV .Q24H [facility] Rx#:[id number] Magnesium Sulfate-D5w Pmx 100 100 1 gm In Dextrose/Water 1 100ml.bag @ 100 mls/hr IVPB Q1H [facility] Rx#: [id number] Nitroglycerin-D5w Pmx 50 3.0 mg In Dextrose/Water 1 250ml.bag @ 5 MCG/MIN 1.5 mls/hr IV .Q24H [facility] Rx#: [id number] Pressure bags 87 72 24 Intake, IV Titration 93.860 17.472 11.290 Amount Clevidipine Butyrate 25 16 mg In Empty Bag 1 bag @ 1 MG/HR 2 mls/hr IV .Q24H [facility] Rx#:[id number] Dexmedetomidine/0.9% NaCl 36.872 (Pmx) 400 mcg In Empty Bag 1 bag @ Titrate IV . Q0M [facility] Rx#:[id number] Insulin Regular 100 unit 33.820 17.472 11.290 In Sodium Chloride 0.9% 100 ml @ Per Protocol IV .Q0M [facility] Rx#:[id number] Propofol 1,000 mg In 7.168 Empty Bag 1 bag @ Titrate IV .Q0M [facility] Rx#: [id number] Output: Chest Tube Drainage 170 170 0 Chest Tube Mediastinal 80 80 0 Pleural Catheter Left 90 90 0 Gastric Drainage 100 Drainage 40 20 0 drain left forearm 40 20 0 Urine 1502 800 240 Other: Voiding Method Indwelling Catheter Indwelling Catheter Indwelling Catheter ABP, PAP, CO, CI - Last Documented Arterial Blood Pressure 161/64 Pulmonary Artery Pressure 31/17 Cardiac Output 4.1 Cardiac Index 2.1 - Exam General appearance: cooperative, no acute distress - EENT Eyes: anicteric sclerae, EOMI, PERRLA, dentition normal, normal appearance ENT: NA/AT, normal oropharynx - Neck Neck: no lymphadenopathy, normal ROM, no other, no rigidity, no stridor, no thyromegaly, positive right Cordis - Respiratory Respiratory: bilateral: CTA, negative: diminished, dullness - Cardiovascular Rhythm: regular Heart sounds: normal: S1, S2 Abnormal Heart Sounds: no systolic murmur, no diastolic murmur, no rub, no S3 Gallop, no S4 Gallop, no click, no other, [address], pacemaker wires - Gastrointestinal General gastrointestinal: normal bowel sounds, soft - Genitourinary Male genitourinary: scrotal edema (None), Bhagat catheter draining clear holly urine - Integumentary Integumentary: no calor, no cellulitis, no cyanotic, decreased turgor, no flushed, no jaundiced, normal, no normal turgor, no pale, no rash, no ulcer - Neurologic Neurologic: CNII-XII intact, focal deficits - Psychiatric Psychiatric: A&O x's 3, appropriate affect - Labs CBC & Chem 7: 04/20/18 04:14 04/20/18 04:14 Labs: Abnormal Lab Results - Last 24 Hours (Table) 04/19/18 04/19/18 04/19/18 Range/Units 12:59 13:57 15:20 RBC (4.30-5.90) m/uL Hgb (13.0-17.5) gm/dL Hct (39.0-53.0) % Glucose (74-99) mg/dL POC Glucose (mg/dL) 165 H 152 H 134 H (75-99) mg/dL Total Protein (6.3-8.2) g/dL Albumin (3.5-5.0) g/dL 04/19/18 04/19/18 04/19/18 Range/Units 16:58 18:01 19:28 RBC (4.30-5.90) m/uL Hgb (13.0-17.5) gm/dL Hct (39.0-53.0) % Glucose (74-99) mg/dL POC Glucose (mg/dL) 119 H 106 H 128 H (75-99) mg/dL Total Protein (6.3-8.2) g/dL Albumin (3.5-5.0) g/dL 04/19/18 04/19/18 04/19/18 Range/Units 20:14 21:06 22:07 RBC (4.30-5.90) m/uL Hgb (13.0-17.5) gm/dL Hct (39.0-53.0) % Glucose (74-99) mg/dL POC Glucose (mg/dL) 160 H 158 H 149 H (75-99) mg/dL Total Protein (6.3-8.2) g/dL Albumin (3.5-5.0) g/dL 04/19/18 04/20/18 04/20/18 Range/Units 22:54 00:07 01:12 RBC (4.30-5.90) m/uL Hgb (13.0-17.5) gm/dL Hct (39.0-53.0) % Glucose (74-99) mg/dL POC Glucose (mg/dL) 147 H 125 H 114 H (75-99) mg/dL Total Protein (6.3-8.2) g/dL Albumin (3.5-5.0) g/dL 04/20/18 04/20/18 04/20/18 Range/Units 02:10 02:58 04:06 RBC (4.30-5.90) m/uL Hgb (13.0-17.5) gm/dL Hct (39.0-53.0) % Glucose (74-99) mg/dL POC Glucose (mg/dL) 122 H 123 H 136 H (75-99) mg/dL Total Protein (6.3-8.2) g/dL Albumin (3.5-5.0) g/dL 04/20/18 04/20/18 04/20/18 Range/Units 04:14 04:14 05:01 RBC 3.86 L (4.30-5.90) m/uL Hgb 11.3 L (13.0-17.5) gm/dL Hct 34.3 L (39.0-53.0) % Glucose 132 H (74-99) mg/dL POC Glucose (mg/dL) 123 H (75-99) mg/dL Total Protein 4.8 L (6.3-8.2) g/dL Albumin 2.7 L (3.5-5.0) g/dL 04/20/18 04/20/18 04/20/18 Range/Units 05:55 07:02 08:19 RBC (4.30-5.90) m/uL Hgb (13.0-17.5) gm/dL Hct (39.0-53.0) % Glucose (74-99) mg/dL POC Glucose (mg/dL) 153 H 149 H 223 H (75-99) mg/dL Total Protein (6.3-8.2) g/dL Albumin (3.5-5.0) g/dL 04/20/18 04/20/18 04/20/18 Range/Units 09:13 10:04 11:00 RBC (4.30-5.90) m/uL Hgb (13.0-17.5) gm/dL Hct (39.0-53.0) % Glucose (74-99) mg/dL POC Glucose (mg/dL) 221 H 219 H 211 H (75-99) mg/dL Total Protein (6.3-8.2) g/dL Albumin (3.5-5.0) g/dL Assessment and Plan Plan: 1. Severe CAD requiring urgent coronary artery bypass grafting with 3 vessels, left internal mammary artery to left anterior descending artery, reverse saphenous vein graft to the posterior lateral branch, radial artery to the obtuse marginal artery. Intensive care management by Dr. Chowdhury. Continue current management per cardiothoracic team. Incentive spirometry be utilizing opiate would be utilized patient will be on Lipitor 80 mg daily, and aspirin 325 mg daily, Lopressor. Patient received additional dose of Lasix and increase Lopressor today. Artline, Cortis, chest tubes have been removed. 2. Severe uncontrolled diabetes mellitus, A1c of 11.9 not on any medication regimen prior to admission. Insulin drip and transition to Levemir 17 units daily and NovoLog 9 units with meals. ems educator to meet with the patient. 3. History of kidney stones, CKD stage I no current symptoms 4. History of asbestosis, requirement of maintenance breo, pulmonary DrSunitha S/P Melecio following 5. Hyperlipidemia with tried before for LDL calculated unknown, we would continue on Lipitor 80 mg daily, and follow LDL measured as an outpatient 6. BPH without lower tract symptomatology, next GI prophylaxis DVT prophylaxis Discharge plan: most likely return home on Monday Impression and plan of care have been directed as dictated by the signing physician. Zahraa Nation nurse practitioner acting as scribe for signing physician.
--- NOTE | 2018-04-20 15:53 | P.PN ---
Subjective Progress Note Date: 04/18/18 (Late entry note) Principal diagnosis: Interstitial lung disease related to asbestosis, respiratory failure anticipated related to poor lung compliance related to asbestosis expected Diffuse coronary artery disease, type 2 diabetes mellitus with complication, history of asbestos exposure 04/18/2018, patient seen eval examined during the round postoperatively patient is status post CABG postop day #0 patient developed problems associated with desaturation with somewhat appearance of a stiff lung PEEP escalated to 10 with that situation did improve suctioning was performed chest x-ray reviewed ET tube was low down has been pulled up repeat chest x-ray post readjustment of ET tube reviewed stable, labs reviewed medications reviewed, critical care time spent 35 minutes 04/17/2018, patient seen eval examined during the rounds, patient is undergoing evaluation for coronary artery bypass surgery already has been evaluated by his primary wood finisher apprentice yesterday, patient is in good spirits being scheduled for a bypass surgery tomorrow from [facility] standpoint patient does have a history chronic congestion but however denies any cough or sputum production denies any chest tightness sputum production hemoptysis This is a pleasant 53-year-old gentleman patient of Dr. Shahid Cervantes He has underlying diabetes mellitus, type II uncontrolled, off metformin since August 2017 with last A1c of 11, admitted to the cardiac unit for planned CABG scheduled on 04/18/2018. He also has history of asbestosis with pneumoconioses , COPD, kidney stones . He was evaluated for the dyspnea and exertion that included a stress test and a cardiac cath, cardiac cath showed severely calcified right and left systems and mid RCA stenosis 80-90%, proximal LAD stenosis 80% with mid LAD stenosis 20% ostial left circumflex 70% and proximal circumflex 90% stenosis. Cardiothoracic surgery has been consulted for cardiac revascularization system thru CABG. Patient has had no other complications or symptoms in the past no chest pain has. She shortness of breath and exertion, no edema, no eye issues, no CK D no prior history of CVA and [place] CHF or history of DVT or PE in the past. Patient does not require any O2 requirements, nausea devices for ambulation prior to admission. Objective - Vital Signs Vital signs: Vital Signs Temp 98.7 F 04/20/18 12:00 Pulse 92 04/20/18 15:00 Resp 28 H 04/20/18 15:00 BP 104/74 04/20/18 15:00 Pulse Ox 91 L 04/20/18 15:00 Intake & Output 04/19/18 04/20/18 04/20/18 18:59 06:59 18:59 Intake Total 963.860 629.472 415.290 Output Total 1812 990 990 Balance -848.140 -360.528 -574.710 Weight 84.6 kg 84.3 kg Intake: IV 870.0 612 404 ACETAMINOPHEN IV (For NPO 100 100 ) 1,000 mg In Empty Bag 1 bag @ 400 mls/hr IVPB Q6HR [facility] Rx#:[id number] CO/CI 60 Lactated Ringers 1,000 ml 520 440 280 @ 20 mls/hr IV .Q24H [facility] Rx#:[id number] Magnesium Sulfate-D5w Pmx 100 100 1 gm In Dextrose/Water 1 100ml.bag @ 100 mls/hr IVPB Q1H [facility] Rx#: [id number] Nitroglycerin-D5w Pmx 50 3.0 mg In Dextrose/Water 1 250ml.bag @ 5 MCG/MIN 1.5 mls/hr IV .Q24H [facility] Rx#: [id number] Pressure bags 87 72 24 Intake, IV Titration 93.860 17.472 11.290 Amount Clevidipine Butyrate 25 16 mg In Empty Bag 1 bag @ 1 MG/HR 2 mls/hr IV .Q24H [facility] Rx#:[id number] Dexmedetomidine/0.9% NaCl 36.872 (Pmx) 400 mcg In Empty Bag 1 bag @ Titrate IV . Q0M [facility] Rx#:[id number] Insulin Regular 100 unit 33.820 17.472 11.290 In Sodium Chloride 0.9% 100 ml @ Per Protocol IV .Q0M [facility] Rx#:[id number] Propofol 1,000 mg In 7.168 Empty Bag 1 bag @ Titrate IV .Q0M [facility] Rx#: [id number] Output: Chest Tube Drainage 170 170 0 Chest Tube Mediastinal 80 80 0 Pleural Catheter Left 90 90 0 Gastric Drainage 100 Drainage 40 20 0 drain left forearm 40 20 0 Urine 1502 800 990 Other: Voiding Method Indwelling Catheter Indwelling Catheter Indwelling Catheter ABP, PAP, CO, CI - Last Documented Arterial Blood Pressure 161/64 Pulmonary Artery Pressure 31/17 Cardiac Output 4.1 Cardiac Index 2.1 - Exam - Constitutional General appearance: Intubated on full ventilator support, assist control of 12 with FiO2 escalated to 100% rate increased to 18 as well with PEEP increased to 10 - EENT Eyes: anicteric sclerae, EOMI, PERRLA, dentition normal, normal appearance - Neck Neck: no lymphadenopathy, normal ROM, no other, no rigidity, no stridor, no thyromegaly - Respiratory Respiratory: bilateral: CTA, bilateral good air entry - Cardiovascular Rhythm: regular Heart sounds: normal: S1, S2 Abnormal Heart Sounds: no systolic murmur, no diastolic murmur, no rub, no S3 Gallop, no S4 Gallop, no click, no other - Gastrointestinal General gastrointestinal: normal bowel sounds, soft - Integumentary Integumentary: no calor, no cellulitis, no cyanotic, decreased turgor, no flushed, no jaundiced, normal, no normal turgor, no pale, no rash, no ulcer - Neurologic Neurologic: CNII-XII intact, focal deficits - Psychiatric Psychiatric: A&O x's 3, appropriate affect - Labs CBC & Chem 7: 04/20/18 04:14 04/20/18 04:14 Labs: Abnormal Lab Results - Last 24 Hours (Table) 04/19/18 04/19/18 04/19/18 Range/Units 16:58 18:01 19:28 RBC (4.30-5.90) m/uL Hgb (13.0-17.5) gm/dL Hct (39.0-53.0) % Glucose (74-99) mg/dL POC Glucose (mg/dL) 119 H 106 H 128 H (75-99) mg/dL Total Protein (6.3-8.2) g/dL Albumin (3.5-5.0) g/dL 04/19/18 04/19/18 04/19/18 Range/Units 20:14 21:06 22:07 RBC (4.30-5.90) m/uL Hgb (13.0-17.5) gm/dL Hct (39.0-53.0) % Glucose (74-99) mg/dL POC Glucose (mg/dL) 160 H 158 H 149 H (75-99) mg/dL Total Protein (6.3-8.2) g/dL Albumin (3.5-5.0) g/dL 04/19/18 04/20/18 04/20/18 Range/Units 22:54 00:07 01:12 RBC (4.30-5.90) m/uL Hgb (13.0-17.5) gm/dL Hct (39.0-53.0) % Glucose (74-99) mg/dL POC Glucose (mg/dL) 147 H 125 H 114 H (75-99) mg/dL Total Protein (6.3-8.2) g/dL Albumin (3.5-5.0) g/dL 04/20/18 04/20/18 04/20/18 Range/Units 02:10 02:58 04:06 RBC (4.30-5.90) m/uL Hgb (13.0-17.5) gm/dL Hct (39.0-53.0) % Glucose (74-99) mg/dL POC Glucose (mg/dL) 122 H 123 H 136 H (75-99) mg/dL Total Protein (6.3-8.2) g/dL Albumin (3.5-5.0) g/dL 04/20/18 04/20/18 04/20/18 Range/Units 04:14 04:14 05:01 RBC 3.86 L (4.30-5.90) m/uL Hgb 11.3 L (13.0-17.5) gm/dL Hct 34.3 L (39.0-53.0) % Glucose 132 H (74-99) mg/dL POC Glucose (mg/dL) 123 H (75-99) mg/dL Total Protein 4.8 L (6.3-8.2) g/dL Albumin 2.7 L (3.5-5.0) g/dL 04/20/18 04/20/18 04/20/18 Range/Units 05:55 07:02 08:19 RBC (4.30-5.90) m/uL Hgb (13.0-17.5) gm/dL Hct (39.0-53.0) % Glucose (74-99) mg/dL POC Glucose (mg/dL) 153 H 149 H 223 H (75-99) mg/dL Total Protein (6.3-8.2) g/dL Albumin (3.5-5.0) g/dL 04/20/18 04/20/18 04/20/18 Range/Units 09:13 10:04 11:00 RBC (4.30-5.90) m/uL Hgb (13.0-17.5) gm/dL Hct (39.0-53.0) % Glucose (74-99) mg/dL POC Glucose (mg/dL) 221 H 219 H 211 H (75-99) mg/dL Total Protein (6.3-8.2) g/dL Albumin (3.5-5.0) g/dL 04/20/18 Range/Units 11:55 RBC (4.30-5.90) m/uL Hgb (13.0-17.5) gm/dL Hct (39.0-53.0) % Glucose (74-99) mg/dL POC Glucose (mg/dL) 191 H (75-99) mg/dL Total Protein (6.3-8.2) g/dL Albumin (3.5-5.0) g/dL Assessment and Plan Assessment: Respiratory failure postoperative expected multifactorial related to compliance issue and asbestosis lung Severe diffuse coronary artery disease, status post CABG Uncontrolled diabetes mellitus Asbestos exposure Dyslipidemia Plan: Pulmonary toilet and suctioning Ventilator adjustment as noted above Sedation with propofol and Precedex if needed no plans for weaning in next 6-8 hours until more stable oxygenation achieve Care plan discussed with the staff at length Time with Patient: Greater than 30
--- NOTE | 2018-04-20 16:04 | P.PN ---
Subjective Progress Note Date: 04/19/18 (Late entry note) Principal diagnosis: urgent coronary bypass grafting 3 vessels, left internal mammary artery to the left anterior descending artery, reverse saphenous vein graft to the posterior lateral branch, radial artery to the obtuse marginal artery. Endoscopic vein harvest, left greater saphenous vein. Endoscopic harvesting of the left radial artery. Epi-aortic ultrasound. Intraoperative transesophageal echocardiogram. Interstitial lung disease related to asbestosis, preop FEV1 is over 70%, respiratory failure anticipated related to poor lung compliance related to asbestosis expected Diffuse coronary artery disease, type 2 diabetes mellitus with complication, history of asbestos exposure 04/19/2018, patient seen eval examined during the rounds, patient has been on Precedex as well as propofol the propofol was discontinued patient of Dr. granado awake and extubated successfully patient is calm and comfortable on supplemental oxygen with 4 L, labs reviewed medications reviewed systolic blood pressure running on the higher side, patient has been on Clevidipine infusion with improved blood pressure, patient is postop day #1 for triple-vessel coronary artery disease with ejection fraction of 40-45% secondary to ischemic cardiomyopathy he is status post urgent coronary bypass grafting 3 vessels, left internal mammary artery to the left anterior descending artery, reverse saphenous vein graft to the posterior lateral branch, radial artery to the obtuse marginal artery. Endoscopic vein harvest, left greater saphenous vein. Endoscopic harvesting of the left radial artery. Epi-aortic ultrasound. Intraoperative transesophageal echocardiogram. 04/18/2018, patient seen eval examined during the round postoperatively patient is status post CABG postop day #0 patient developed problems associated with desaturation with somewhat appearance of a stiff lung PEEP escalated to 10 with that situation did improve suctioning was performed chest x-ray reviewed ET tube was low down has been pulled up repeat chest x-ray post readjustment of ET tube reviewed stable, labs reviewed medications reviewed, critical care time spent 35 minutes 04/17/2018, patient seen eval examined during the rounds, patient is undergoing evaluation for coronary artery bypass surgery already has been evaluated by his primary keyboard teacher yesterday, patient is in good spirits being scheduled for a bypass surgery tomorrow from [facility] standpoint patient does have a history chronic congestion but however denies any cough or sputum production denies any chest tightness sputum production hemoptysis This is a pleasant 53-year-old gentleman patient of Dr. Shahid Mullally He has underlying diabetes mellitus, type II uncontrolled, off metformin since August 2017 with last A1c of 11, admitted to the cardiac unit for planned CABG scheduled on 04/18/2018. He also has history of asbestosis with pneumoconioses , COPD, kidney stones . He was evaluated for the dyspnea and exertion that included a stress test and a cardiac cath, cardiac cath showed severely calcified right and left systems and mid RCA stenosis 80-90%, proximal LAD stenosis 80% with mid LAD stenosis 20% ostial left circumflex 70% and proximal circumflex 90% stenosis. Cardiothoracic surgery has been consulted for cardiac revascularization system thru CABG. Patient has had no other complications or symptoms in the past no chest pain has. She shortness of breath and exertion, no edema, no eye issues, no CK D no prior history of CVA and [place] CHF or history of DVT or PE in the past. Patient does not require any O2 requirements, nausea devices for ambulation prior to admission. Objective - Vital Signs Vital signs: Vital Signs Temp 98.7 F 04/20/18 12:00 Pulse 92 04/20/18 15:00 Resp 28 H 04/20/18 15:00 BP 104/74 04/20/18 15:00 Pulse Ox 91 L 04/20/18 15:00 Intake & Output 04/19/18 04/20/18 04/20/18 18:59 06:59 18:59 Intake Total 963.860 629.472 415.290 Output Total 1812 990 990 Balance -848.140 -360.528 -574.710 Weight 84.6 kg 84.3 kg Intake: IV 870.0 612 404 ACETAMINOPHEN IV (For NPO 100 100 ) 1,000 mg In Empty Bag 1 bag @ 400 mls/hr IVPB Q6HR [facility] Rx#:[id number] CO/CI 60 Lactated Ringers 1,000 ml 520 440 280 @ 20 mls/hr IV .Q24H [facility] Rx#:[id number] Magnesium Sulfate-D5w Pmx 100 100 1 gm In Dextrose/Water 1 100ml.bag @ 100 mls/hr IVPB Q1H [facility] Rx#: [id number] Nitroglycerin-D5w Pmx 50 3.0 mg In Dextrose/Water 1 250ml.bag @ 5 MCG/MIN 1.5 mls/hr IV .Q24H [facility] Rx#: [id number] Pressure bags 87 72 24 Intake, IV Titration 93.860 17.472 11.290 Amount Clevidipine Butyrate 25 16 mg In Empty Bag 1 bag @ 1 MG/HR 2 mls/hr IV .Q24H [facility] Rx#:[id number] Dexmedetomidine/0.9% NaCl 36.872 (Pmx) 400 mcg In Empty Bag 1 bag @ Titrate IV . Q0M [facility] Rx#:[id number] Insulin Regular 100 unit 33.820 17.472 11.290 In Sodium Chloride 0.9% 100 ml @ Per Protocol IV .Q0M [facility] Rx#:[id number] Propofol 1,000 mg In 7.168 Empty Bag 1 bag @ Titrate IV .Q0M [facility] Rx#: [id number] Output: Chest Tube Drainage 170 170 0 Chest Tube Mediastinal 80 80 0 Pleural Catheter Left 90 90 0 Gastric Drainage 100 Drainage 40 20 0 drain left forearm 40 20 0 Urine 1502 800 990 Other: Voiding Method Indwelling Catheter Indwelling Catheter Indwelling Catheter ABP, PAP, CO, CI - Last Documented Arterial Blood Pressure 161/64 Pulmonary Artery Pressure 31/17 Cardiac Output 4.1 Cardiac Index 2.1 - Exam - Constitutional General appearance: Present: cooperative, no acute distress, obese - Respiratory Details: Lungs sounds diminished with coarse breath sounds in the bases bilaterally. Respirations even, nonlabored. Patient was on mechanical ventilation, settings SIMV mode, FiO2 50%, tidal volume 500, respiratory rate 18, PEEP 10. ABGs this morning 7.48/33/105/25/98%/1.3 on 50% FiO2 with 10 of PEEP. Mediastinal chest tube to continuous wall suction, 95 mL serosanguineous drainage overnight, 250 mL since surgery. Left pleural chest tube to continuous wall suction, 82 mL serosanguineous drainage overnight, 250 mL since surgery. No air leaks present. Patient has been successfully weaned and extubated - Cardiovascular Details: S1, S2 present. Regular rate and rhythm, sinus rhythm with rare occasional PVCs on telemetry. Sternum stable. A/V epicardial pacemaker wires present, connected to generator, generator was on VVI mode with backup rate 50 bpm, turned off. Palpable peripheral pulses bilaterally. No edema present. No calf pain or tenderness noted. Right internal jugular [place]/Cordis, right radial arterial line present. Last CO/CI 4.5/2.3 on no inotropes. Heart hugger, SCDs, antiembolism stockings in place. - Gastrointestinal Gastrointestinal Comment(s): abdomen soft, nontender, nondistended. Hypoactive bowel sounds present 4 quadrants. OG tube connected to low intermittent suction, 150 milliliters green drainage overnight. - Genitourinary Genitourinary Comment(s): Bhagat present draining clear, yellow urine. Output 30-165 mL per hour overnight , 568 mL in the last 8 hours. - Integumentary Integumentary Comment(s): Skin is warm and dry with evidence of good perfusion. Anterior chest incision well approximated and covered with dry intact dressing. Left radial artery harvest site well approximated, BANDAR drain present with minimal serosanguineous drainage overnight. - Neurologic Neurologic: Present: CNII-XII intact - Musculoskeletal Musculoskeletal: Present: strength equal bilaterally - Psychiatric Psychiatric Comment(s): Patient is alert and following commands on Precedex for sedation. - Labs CBC & Chem 7: 04/20/18 04:14 04/20/18 04:14 Labs: Abnormal Lab Results - Last 24 Hours (Table) 04/19/18 04/19/18 04/19/18 Range/Units 16:58 18:01 19:28 RBC (4.30-5.90) m/uL Hgb (13.0-17.5) gm/dL Hct (39.0-53.0) % Glucose (74-99) mg/dL POC Glucose (mg/dL) 119 H 106 H 128 H (75-99) mg/dL Total Protein (6.3-8.2) g/dL Albumin (3.5-5.0) g/dL 04/19/18 04/19/18 04/19/18 Range/Units 20:14 21:06 22:07 RBC (4.30-5.90) m/uL Hgb (13.0-17.5) gm/dL Hct (39.0-53.0) % Glucose (74-99) mg/dL POC Glucose (mg/dL) 160 H 158 H 149 H (75-99) mg/dL Total Protein (6.3-8.2) g/dL Albumin (3.5-5.0) g/dL 10/04/20/18 04/20/18 Range/Units 22:54 00:07 01:12 RBC (4.30-5.90) m/uL Hgb (13.0-17.5) gm/dL Hct (39.0-53.0) % Glucose (74-99) mg/dL POC Glucose (mg/dL) 147 H 125 H 114 H (75-99) mg/dL Total Protein (6.3-8.2) g/dL Albumin (3.5-5.0) g/dL 04/20/18 04/20/18 04/20/18 Range/Units 02:10 02:58 04:06 RBC (4.30-5.90) m/uL Hgb (13.0-17.5) gm/dL Hct (39.0-53.0) % Glucose (74-99) mg/dL POC Glucose (mg/dL) 122 H 123 H 136 H (75-99) mg/dL Total Protein (6.3-8.2) g/dL Albumin (3.5-5.0) g/dL 04/20/18 04/20/18 04/20/18 Range/Units 04:14 04:14 05:01 RBC 3.86 L (4.30-5.90) m/uL Hgb 11.3 L (13.0-17.5) gm/dL Hct 34.3 L (39.0-53.0) % Glucose 132 H (74-99) mg/dL POC Glucose (mg/dL) 123 H (75-99) mg/dL Total Protein 4.8 L (6.3-8.2) g/dL Albumin 2.7 L (3.5-5.0) g/dL 04/20/18 04/20/18 04/20/18 Range/Units 05:55 07:02 08:19 RBC (4.30-5.90) m/uL Hgb (13.0-17.5) gm/dL Hct (39.0-53.0) % Glucose (74-99) mg/dL POC Glucose (mg/dL) 153 H 149 H 223 H (75-99) mg/dL Total Protein (6.3-8.2) g/dL Albumin (3.5-5.0) g/dL 04/20/18 04/20/18 04/20/18 Range/Units 09:13 10:04 11:00 RBC (4.30-5.90) m/uL Hgb (13.0-17.5) gm/dL Hct (39.0-53.0) % Glucose (74-99) mg/dL POC Glucose (mg/dL) 221 H 219 H 211 H (75-99) mg/dL Total Protein (6.3-8.2) g/dL Albumin (3.5-5.0) g/dL 04/20/18 Range/Units 11:55 RBC (4.30-5.90) m/uL Hgb (13.0-17.5) gm/dL Hct (39.0-53.0) % Glucose (74-99) mg/dL POC Glucose (mg/dL) 191 H (75-99) mg/dL Total Protein (6.3-8.2) g/dL Albumin (3.5-5.0) g/dL Assessment and Plan Assessment: POD #1 urgent coronary bypass grafting 3 vessels, left internal mammary artery to the left anterior descending artery, reverse saphenous vein graft to the posterior lateral branch, radial artery to the obtuse marginal artery. Endoscopic vein harvest, left greater saphenous vein. Endoscopic harvesting of the left radial artery. Epi-aortic ultrasound. Intraoperative transesophageal echocardiogram. Respiratory failure postoperative expected multifactorial related to compliance issue and asbestosis lung, successfully weaned and extubated Ischemic cardiomyopathy due to diffuse coronary artery disease Uncontrolled diabetes mellitus Asbestos exposure Dyslipidemia Plan: Pulmonary toilet and suctioning Successfully weaned and extubated Sedation with Precedex if needed Deep breathing exercise incentive spirometry Reason activity as tolerated [place]-Dmitriy catheter removal of her cardiothoracic surgery Chest tubes to be Today likely will be removed tomorrow Keep Foleys for now Care plan discussed with the staff at length Critical care time spent 35 minutes Time with Patient: Greater than 30
--- NOTE | 2018-04-20 16:09 | P.PN ---
Subjective Progress Note Date: 04/20/18 Principal diagnosis: urgent coronary bypass grafting 3 vessels, left internal mammary artery to the left anterior descending artery, reverse saphenous vein graft to the posterior lateral branch, radial artery to the obtuse marginal artery. Endoscopic vein harvest, left greater saphenous vein. Endoscopic harvesting of the left radial artery. Epi-aortic ultrasound. Intraoperative transesophageal echocardiogram. Interstitial lung disease related to asbestosis, preop FEV1 is over 70%, respiratory failure anticipated related to poor lung compliance related to asbestosis expected Diffuse coronary artery disease, type 2 diabetes mellitus with complication, history of asbestos exposure 04/20/2018, patient seen eval examined during the rounds he is awake and alert breathing more comfortably has been doing incentive spirometry, both chest tubes has been removed Foleys has been removed, introducer cordis has been removed as well, labs reviewed medications reviewed him a chest x-ray overall stable interstitial eval basal atelectasis noted, labs from today reviewed medications reviewed 04/19/2018, patient seen eval examined during the rounds, patient has been on Precedex as well as propofol the propofol was discontinued patient of Dr. granado awake and extubated successfully patient is calm and comfortable on supplemental oxygen with 4 L, labs reviewed medications reviewed systolic blood pressure running on the higher side, patient has been on Clevidipine infusion with improved blood pressure, patient is postop day #1 for triple-vessel coronary artery disease with ejection fraction of 40-45% secondary to ischemic cardiomyopathy he is status post urgent coronary bypass grafting 3 vessels, left internal mammary artery to the left anterior descending artery, reverse saphenous vein graft to the posterior lateral branch, radial artery to the obtuse marginal artery. Endoscopic vein harvest, left greater saphenous vein. Endoscopic harvesting of the left radial artery. Epi-aortic ultrasound. Intraoperative transesophageal echocardiogram. 04/18/2018, patient seen eval examined during the round postoperatively patient is status post CABG postop day #0 patient developed problems associated with desaturation with somewhat appearance of a stiff lung PEEP escalated to 10 with that situation did improve suctioning was performed chest x-ray reviewed ET tube was low down has been pulled up repeat chest x-ray post readjustment of ET tube reviewed stable, labs reviewed medications reviewed, critical care time spent 35 minutes 04/17/2018, patient seen eval examined during the rounds, patient is undergoing evaluation for coronary artery bypass surgery already has been evaluated by his primary hardwood floor sander yesterday, patient is in good spirits being scheduled for a bypass surgery tomorrow from [facility] standpoint patient does have a history chronic congestion but however denies any cough or sputum production denies any chest tightness sputum production hemoptysis This is a pleasant 53-year-old gentleman patient of Dr. Shahid Cervantes He has underlying diabetes mellitus, type II uncontrolled, off metformin since August 2017 with last A1c of 11, admitted to the cardiac unit for planned CABG scheduled on 04/18/2018. He also has history of asbestosis with pneumoconioses , COPD, kidney stones . He was evaluated for the dyspnea and exertion that included a stress test and a cardiac cath, cardiac cath showed severely calcified right and left systems and mid RCA stenosis 80-90%, proximal LAD stenosis 80% with mid LAD stenosis 20% ostial left circumflex 70% and proximal circumflex 90% stenosis. Cardiothoracic surgery has been consulted for cardiac revascularization system thru CABG. Patient has had no other complications or symptoms in the past no chest pain has. She shortness of breath and exertion, no edema, no eye issues, no CK D no prior history of CVA and [place] CHF or history of DVT or PE in the past. Patient does not require any O2 requirements, nausea devices for ambulation prior to admission. Objective - Vital Signs Vital signs: Vital Signs Temp 98.7 F 04/20/18 12:00 Pulse 92 04/20/18 15:00 Resp 28 H 04/20/18 15:00 BP 104/74 04/20/18 15:00 Pulse Ox 91 L 04/20/18 15:00 Intake & Output 04/19/18 04/20/18 04/20/18 18:59 06:59 18:59 Intake Total 963.860 629.472 415.290 Output Total 1812 990 990 Balance -848.140 -360.528 -574.710 Weight 84.6 kg 84.3 kg Intake: IV 870.0 612 404 ACETAMINOPHEN IV (For NPO 100 100 ) 1,000 mg In Empty Bag 1 bag @ 400 mls/hr IVPB Q6HR [facility] Rx#:[id number] CO/CI 60 Lactated Ringers 1,000 ml 520 440 280 @ 20 mls/hr IV .Q24H [facility] Rx#:[id number] Magnesium Sulfate-D5w Pmx 100 100 1 gm In Dextrose/Water 1 100ml.bag @ 100 mls/hr IVPB Q1H [facility] Rx#: [id number] Nitroglycerin-D5w Pmx 50 3.0 mg In Dextrose/Water 1 250ml.bag @ 5 MCG/MIN 1.5 mls/hr IV .Q24H [facility] Rx#: [id number] Pressure bags 87 72 24 Intake, IV Titration 93.860 17.472 11.290 Amount Clevidipine Butyrate 25 16 mg In Empty Bag 1 bag @ 1 MG/HR 2 mls/hr IV .Q24H [facility] Rx#:[id number] Dexmedetomidine/0.9% NaCl 36.872 (Pmx) 400 mcg In Empty Bag 1 bag @ Titrate IV . Q0M [facility] Rx#:[id number] Insulin Regular 100 unit 33.820 17.472 11.290 In Sodium Chloride 0.9% 100 ml @ Per Protocol IV .Q0M [facility] Rx#:[id number] Propofol 1,000 mg In 7.168 Empty Bag 1 bag @ Titrate IV .Q0M [facility] Rx#: [id number] Output: Chest Tube Drainage 170 170 0 Chest Tube Mediastinal 80 80 0 Pleural Catheter Left 90 90 0 Gastric Drainage 100 Drainage 40 20 0 drain left forearm 40 20 0 Urine 1502 800 990 Other: Voiding Method Indwelling Catheter Indwelling Catheter Indwelling Catheter ABP, PAP, CO, CI - Last Documented Arterial Blood Pressure 161/64 Pulmonary Artery Pressure 31/17 Cardiac Output 4.1 Cardiac Index 2.1 - Exam - Constitutional General appearance: Present: cooperative, no acute distress, obese - Respiratory Details: Lungs sounds diminished with coarse breath sounds in the bases bilaterally. Respirations even, nonlabored. 2 L oxygen - Cardiovascular Details: S1, S2 present. Regular rate and rhythm, sinus rhythm with rare occasional PVCs on telemetry. Sternum stable. - Gastrointestinal Gastrointestinal Comment(s): abdomen soft, nontender, nondistended. Hypoactive bowel sounds present 4 quadrants. OG tube connected to low intermittent suction, 150 milliliters green drainage overnight. - Genitourinary Genitourinary Comment(s): Bhagat moved - Integumentary Integumentary Comment(s): Skin is warm and dry with evidence of good perfusion. Anterior chest incision well approximated and covered with dry intact dressing. Left radial artery harvest site well approximated, BANDAR drain present with minimal serosanguineous drainage overnight. - Neurologic Neurologic: Present: CNII-XII intact - Musculoskeletal Musculoskeletal: Present: strength equal bilaterally - Psychiatric Psychiatric Comment(s): Patient is alert and following commands on Precedex for sedation. - Labs CBC & Chem 7: 04/20/18 04:14 04/20/18 04:14 Labs: Abnormal Lab Results - Last 24 Hours (Table) 04/19/18 04/19/18 04/19/18 Range/Units 16:58 18:01 19:28 RBC (4.30-5.90) m/uL Hgb (13.0-17.5) gm/dL Hct (39.0-53.0) % Glucose (74-99) mg/dL POC Glucose (mg/dL) 119 H 106 H 128 H (75-99) mg/dL Total Protein (6.3-8.2) g/dL Albumin (3.5-5.0) g/dL 04/19/18 04/19/18 04/19/18 Range/Units 20:14 21:06 22:07 RBC (4.30-5.90) m/uL Hgb (13.0-17.5) gm/dL Hct (39.0-53.0) % Glucose (74-99) mg/dL POC Glucose (mg/dL) 160 H 158 H 149 H (75-99) mg/dL Total Protein (6.3-8.2) g/dL Albumin (3.5-5.0) g/dL 04/19/18 04/20/18 04/20/18 Range/Units 22:54 00:07 01:12 RBC (4.30-5.90) m/uL Hgb (13.0-17.5) gm/dL Hct (39.0-53.0) % Glucose (74-99) mg/dL POC Glucose (mg/dL) 147 H 125 H 114 H (75-99) mg/dL Total Protein (6.3-8.2) g/dL Albumin (3.5-5.0) g/dL 04/20/18 04/20/18 04/20/18 Range/Units 02:10 02:58 04:06 RBC (4.30-5.90) m/uL Hgb (13.0-17.5) gm/dL Hct (39.0-53.0) % Glucose (74-99) mg/dL POC Glucose (mg/dL) 122 H 123 H 136 H (75-99) mg/dL Total Protein (6.3-8.2) g/dL Albumin (3.5-5.0) g/dL 04/20/18 04/20/18 04/20/18 Range/Units 04:14 04:14 05:01 RBC 3.86 L (4.30-5.90) m/uL Hgb 11.3 L (13.0-17.5) gm/dL Hct 34.3 L (39.0-53.0) % Glucose 132 H (74-99) mg/dL POC Glucose (mg/dL) 123 H (75-99) mg/dL Total Protein 4.8 L (6.3-8.2) g/dL Albumin 2.7 L (3.5-5.0) g/dL 04/20/18 04/20/18 04/20/18 Range/Units 05:55 07:02 08:19 RBC (4.30-5.90) m/uL Hgb (13.0-17.5) gm/dL Hct (39.0-53.0) % Glucose (74-99) mg/dL POC Glucose (mg/dL) 153 H 149 H 223 H (75-99) mg/dL Total Protein (6.3-8.2) g/dL Albumin (3.5-5.0) g/dL 04/20/18 04/20/18 04/20/18 Range/Units 09:13 10:04 11:00 RBC (4.30-5.90) m/uL Hgb (13.0-17.5) gm/dL Hct (39.0-53.0) % Glucose (74-99) mg/dL POC Glucose (mg/dL) 221 H 219 H 211 H (75-99) mg/dL Total Protein (6.3-8.2) g/dL Albumin (3.5-5.0) g/dL 04/20/18 Range/Units 11:55 RBC (4.30-5.90) m/uL Hgb (13.0-17.5) gm/dL Hct (39.0-53.0) % Glucose (74-99) mg/dL POC Glucose (mg/dL) 191 H (75-99) mg/dL Total Protein (6.3-8.2) g/dL Albumin (3.5-5.0) g/dL Assessment and Plan Assessment: POD #2 urgent coronary bypass grafting 3 vessels, left internal mammary artery to the left anterior descending artery, reverse saphenous vein graft to the posterior lateral branch, radial artery to the obtuse marginal artery. Endoscopic vein harvest, left greater saphenous vein. Endoscopic harvesting of the left radial artery. Epi-aortic ultrasound. Intraoperative transesophageal echocardiogram. Respiratory failure postoperative expected multifactorial related to compliance issue and asbestosis lung, successfully weaned and extubated on minimal oxygen 2 L nasal cannula Diffuse triple-vessel coronary artery disease Ischemic cardiomyopathy due to diffuse coronary artery disease Uncontrolled diabetes mellitus Asbestos exposure Dyslipidemia Plan: Pulmonary toilet and suctioning Can be moved out of the ICU to stepdown unit Deep breathing exercise incentive spirometry Increase activity as tolerated Care plan discussed with the staff at length Labs reviewed medications reviewed care plan discussed Time with Patient: Greater than 30
[2018-04-20 17:29] LABS: Glucose,Whole Blood 174 mg/dL (75-99)
[2018-04-20 20:26] LABS: Glucose,Whole Blood 258 mg/dL (75-99)
[2018-04-20] MEDS: SENNOSIDES-DOCUSATE SODIUM 1 EACH TAB PO SCH (20:54)
[2018-04-21] MEDS: KETOROLAC 30 MG/ML 1 ML VIAL IVP SCH ×5 (00:32→23:33)
[2018-04-21] MEDS: HEPARIN SODIUM,PORCINE 5,000 UNIT/ML 1 ML VIAL SQ SCH ×4 (00:32→23:34)
[2018-04-21 05:04] LABS: HCT 34.2 % (39.0-53.0); HGB 11.5 gm/dL (13.0-17.5); MCH 30.1 pg (25.0-35.0); MCHC 33.6 g/dL (31.0-37.0); MCV 89.6 fL (80.0-100.0); Mean Platelet Volume 6.9; Platelet Count 196 k/uL (150-450); RBC 3.82 m/uL (4.30-5.90); RDW 13.5 % (11.5-15.5); WBC 9.4 k/uL (3.8-10.6)
[2018-04-21 05:20] LABS: ALT 34 U/L (21-72); AST 31 U/L (17-59); Albumin 2.7 g/dL (3.5-5.0); Alkaline Phosphatase 56 U/L (38-126); Anion Gap 6 mmol/L; Blood Urea Nitrogen 15 mg/dL (9-20); Calcium 8.5 mg/dL (8.4-10.2); Carbon Dioxide 28 mmol/L (22-30); Chloride 102 mmol/L (98-107); Glucose 123 mg/dL (74-99); Magnesium 1.9 mg/dL (1.6-2.3); Phosphorus 4.3 mg/dL (2.5-4.5); Sodium 136 mmol/L (137-145); Total Bilirubin 0.5 mg/dL (0.2-1.3); Total Protein 4.9 g/dL (6.3-8.2)
--- NOTE | 2018-04-21 07:20 | XR ---
EXAMINATION TYPE: XR chest 2V DATE OF EXAM: 04/21/2018 HISTORY: post cardiac surgery. REFERENCE: Previous study dated 04/20/2018. FINDINGS: The patient right internal jugular catheter is been removed. There has been a midline wray otomy. The heart is mildly enlarged. The lungs are clear. The patient's left pleural drain has been r emoved. I suspect tiny, bilateral effusions. IMPRESSION: 1. MILD CARDIOMEGALY. 2. I COULD NOT EXCLUDE SMALL, BILATERAL EFFUSIONS. 3. IMPROVING POSTOPERATIVE CHANGE.
[2018-04-21 07:21] LABS: Glucose,Whole Blood 188 mg/dL (75-99)
[2018-04-21] MEDS: IPRATROPIUM-ALBUTEROL 3 ML NEB INHALATION SCH ×4 (07:52→20:37)
[2018-04-21] MEDS: SYMBICORT 80-4.5 MCG INHALER INHALATION SCH ×2 (07:52→20:37)
[2018-04-21] MEDS: CLOPIDOGREL 75 MG TAB PO SCH (08:46)
[2018-04-21] MEDS: METOPROLOL TARTRATE 25 MG TAB PO SCH (08:46)
[2018-04-21] MEDS: PANTOPRAZOLE 40 MG TABLET PO SCH (08:46)
[2018-04-21] MEDS: traMADol 50 MG TAB PO PRN (08:46)
[2018-04-21] MEDS: ATORVASTATIN 80 MG TAB PO SCH (08:46)
[2018-04-21] MEDS: DOCUSATE 100 MG CAP PO SCH (08:46)
[2018-04-21] MEDS: MONTELUKAST 10 MG TAB PO SCH (08:46)
[2018-04-21] MEDS: MUPIROCIN 2% OINT 22 GM TUBE NASAL SCH ×2 (08:47→21:25)
[2018-04-21] MEDS: INSULIN ASPART 100 UNIT/ML 1 ML 10 ML VIAL SQ SCH ×8 (08:47→21:04)
[2018-04-21] MEDS: TAMSULOSIN 0.4 MG CAP.ER.24H PO SCH (08:47)
[2018-04-21] MEDS: ASPIRIN 325 MG TAB PO SCH (08:47)
[2018-04-21] MEDS: INSULIN DETEMIR 100 UNIT/ML 10 ML VIAL SQ SCH ×2 (08:54→11:31)
[2018-04-21 08:56] LABS: Glucose,Whole Blood 247 mg/dL (75-99)
[2018-04-21] MEDS: LORATADINE 10 MG TAB PO SCH (09:00)
[2018-04-21] MEDS: CYCLOBENZAPRINE 10 MG TAB PO SCH (09:01)
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
[2018-04-21] MEDS: amLODIPine 5 MG TAB PO SCH (10:30)
[2018-04-21] MEDS: MAGNESIUM HYDROXIDE 2,400 MG/10 ML CUP PO PRN (10:30)
--- NOTE | 2018-04-21 11:11 | PN ---
PROGRESS NOTE Mr. Monique is a 53-year-old male, status post coronary artery bypass grafting. He is doing well this morning, denying any chest pain. He continues to be in sinus mechanism. He denies any dizziness or palpitation. He denies any nausea. Hemodynamically he is stable. He continues to be at this time on amlodipine 5 mg daily, aspirin once a day, Lipitor 80 mg daily, Plavix 75 mg daily, lisinopril 2.5 mg daily, metoprolol tartrate 25 mg 3 times a day. PHYSICAL EXAMINATION: Blood pressure 113/70 with a heart rate in the 90s. LUNGS: Mild decrease in breath sounds at the bases. HEART: Regular rate and rhythm. S1, S2. No S3. No gallop. ABDOMEN: Soft, nontender. Positive bowel sounds. No organomegaly. EXTREMITIES: No edema. LAB DATA: BUN and creatinine of 15 and 0.85. Potassium 4.0. IMPRESSION: 1. Status post coronary artery bypass grafting, stable. 2. Hypertension. 3. Hyperlipidemia. RECOMMENDATIONS: He is doing well. Will increase his level of activity. Continue incentive spirometry. Hopefully he will be transferred out of the ICU soon. MMODL / IJN: [id number] /
[2018-04-21] MEDS ORDERED: METOPROLOL TARTRATE 25 MG TAB PO STA (11:44)
--- NOTE | 2018-04-21 12:29 | P.PN ---
Subjective Progress Note Date: 04/21/18 This is a pleasant 53-year-old gentleman patient of Dr. Shahid Hall/Jak Majano. He has underlying diabetes mellitus, type II uncontrolled, off metformin since August 2017 with last A1c of 11, admitted to the cardiac unit for planned CABG scheduled on 04/18/2018. He also has history of asbestosis with pneumoconioses, COPD, kidney stones . He was evaluated for the dyspnea and exertion that included a stress test and a cardiac cath, cardiac cath showed severely calcified right and left systems and mid RCA stenosis 80-90%, proximal LAD stenosis 80% with mid LAD stenosis 20% ostial left circumflex 70% and proximal circumflex 90% stenosis. Cardiothoracic surgery has been consulted for cardiac revascularization system thru CABG. Patient has had no other complications or symptoms in the past no chest pain has. She shortness of breath and exertion, no edema, no eye issues, no CKD no prior history of CVA and [place] CHF or history of DVT or PE in the past. Patient does not require any O2 requirements, nausea devices for ambulation prior to admission. 04/19: Yesterday, patient underwent urgent coronary artery bypass grafting with 3 vessels, left internal mammary artery to left anterior descending artery, reverse saphenous vein graft to the posterior lateral branch, radial artery to the obtuse marginal artery. Patient is now seen in the intensive care unit. He was successfully extubated this morning. He has not required vasopressors. Capillary blood glucose between 131 and 159. Hemoglobin is stable at 11. Patient remains with [address], right sided Cordis, Bhagat catheter , AV epicardial pacemaker wires. The patient is awake. He has some generalized discomfort. 04/20: Patient remains in intensive care unit. He has had chest tubes removed, heart line and Cordis. He is eating a diet and this is to be advanced. Blood sugars have been elevated in the 200s and is currently on insulin drip. We'll plan to transition him over to Levemir, scheduled NovoLog and NovoLog scale. Bhagat is currently in place and patient received dose Lasix. Lopressor was increased. We have asked informatics educator to meet with the patient. 04/21: The patient has been ambulating and doing well with increased activity. His will walk with him in the hallway. He has also increased use of incentive spirometry. Blood sugars are improved but continue to run high for which Levemir has been increased to 19 units and scheduled NovoLog to 11 units 3 times daily with meals. It is noted that he and his wanted him to go home on pens and this will be in the form of Levemir and Humalog as covered by his insurance. Glucometer ordered and to be arranged by pillowcase maker. Review Of Systems: Constitutional: No fever, no chills, no night sweats. No weight change. + weakness, fatigue or lethargy. EENT: No headache. No blurred vision or double vision, no loss of vision. No loss of Hearing, no ringing in the ears, no dizziness. No nasal drainage or congestion. No epistaxis. No sore throat. Lungs: +shortness of breath, +cough, + sputum production. Cardiovascular: + chest discomfort, no lower extremity edema. No palpitations. No paroxysmal nocturnal dyspnea. No orthopnea. No lightheadedness or dizziness. No syncopal episodes. Abdominal: No abdominal pain. No nausea, vomiting. No diarrhea. No constipation. No bloody or tarry stools. No loss of appetite. Genitourinary: No dysuria, increased frequency, urgency. No urinary retention. Bhagat. Musculoskeletal: No myalgias. No muscle weakness, no gait dysfunction, no frequent falls. No back pain. No neck pain. Integumentary: + wounds, no lesions. No rash or pruritus. No unusual bruising. No change in hair or nails. Neurologic: No aphasia. No facial droop. No change in mentation. No head injury. No headache. No paralysis. No paresthesia. Psychiatric: No depression. No anxiety. No mood swings. Endocrine: + abnormal blood sugars. No weight change. No excessive sweating or thirst. No cold intolerance. Objective - Vital Signs Vital signs: Vital Signs Temp 97.7 F 04/21/18 09:00 Pulse 100 04/21/18 09:00 Resp 28 H 04/21/18 09:00 BP 113/70 04/21/18 09:00 Pulse Ox 91 L 04/21/18 09:00 Intake & Output 04/20/18 04/21/18 04/21/18 18:59 06:59 18:59 Intake Total 415.290 650 300 Output Total 1083 425 0 Balance -667.710 225 300 Intake: IV 404 Lactated Ringers 1,000 ml 280 @ 20 mls/hr IV .Q24H [facility] Rx#:[id number] Magnesium Sulfate-D5w Pmx 100 1 gm In Dextrose/Water 1 100ml.bag @ 100 mls/hr IVPB Q1H [facility] Rx#: [id number] Pressure bags 24 Intake, IV Titration 11.290 Amount Insulin Regular 100 unit 11.290 In Sodium Chloride 0.9% 100 ml @ Per Protocol IV .Q0M [facility] Rx#:[id number] Oral 650 300 Output: Chest Tube Drainage 0 Chest Tube Mediastinal 0 Pleural Catheter Left 0 Drainage 0 drain left forearm 0 Urine 1083 425 0 Other: Voiding Method Urinal Urinal ABP, PAP, CO, CI - Last Documented Arterial Blood Pressure 161/64 Pulmonary Artery Pressure 31/17 Cardiac Output 4.1 Cardiac Index 2.1 - Exam General appearance: cooperative, no acute distress, patient is sitting up in a recliner. - EENT Eyes: anicteric sclerae, EOMI, PERRLA, dentition normal, normal appearance ENT: NA/AT, normal oropharynx - Neck Neck: no lymphadenopathy, normal ROM, no other, no rigidity, no stridor, no thyromegaly, positive right Cordis - Respiratory Respiratory: bilateral: CTA, negative: diminished, dullness - Cardiovascular Rhythm: regular Heart sounds: normal: S1, S2 Abnormal Heart Sounds: no systolic murmur, no diastolic murmur, no rub, no S3 Gallop, no S4 Gallop, no click, no other, [address], pacemaker wires - Gastrointestinal General gastrointestinal: normal bowel sounds, soft - Genitourinary Male genitourinary: scrotal edema (None), - Integumentary Integumentary: no calor, no cellulitis, no cyanotic, decreased turgor, no flushed, no jaundiced, normal, no normal turgor, no pale, no rash, no ulcer - Neurologic Neurologic: CNII-XII intact, focal deficits - Psychiatric Psychiatric: A&O x's 3, appropriate affect - Labs CBC & Chem 7: 04/21/18 04:16 04/21/18 04:16 Labs: Abnormal Lab Results - Last 24 Hours (Table) 04/20/18 04/20/18 04/20/18 Range/Units 09:13 10:04 11:00 RBC (4.30-5.90) m/uL Hgb (13.0-17.5) gm/dL Hct (39.0-53.0) % Sodium (137-145) mmol/L Glucose (74-99) mg/dL POC Glucose (mg/dL) 221 H 219 H 211 H (75-99) mg/dL Total Protein (6.3-8.2) g/dL Albumin (3.5-5.0) g/dL 04/20/18 04/20/18 04/20/18 Range/Units 11:55 17:16 20:15 RBC (4.30-5.90) m/uL Hgb (13.0-17.5) gm/dL Hct (39.0-53.0) % Sodium (137-145) mmol/L Glucose (74-99) mg/dL POC Glucose (mg/dL) 191 H 174 H 258 H (75-99) mg/dL Total Protein (6.3-8.2) g/dL Albumin (3.5-5.0) g/dL 04/21/18 04/21/18 04/21/18 Range/Units 04:16 04:16 07:10 RBC 3.82 L (4.30-5.90) m/uL Hgb 11.5 L (13.0-17.5) gm/dL Hct 34.2 L (39.0-53.0) % Sodium 136 L (137-145) mmol/L Glucose 123 H (74-99) mg/dL POC Glucose (mg/dL) 188 H (75-99) mg/dL Total Protein 4.9 L (6.3-8.2) g/dL Albumin 2.7 L (3.5-5.0) g/dL 04/21/18 Range/Units 08:44 RBC (4.30-5.90) m/uL Hgb (13.0-17.5) gm/dL Hct (39.0-53.0) % Sodium (137-145) mmol/L Glucose (74-99) mg/dL POC Glucose (mg/dL) 247 H (75-99) mg/dL Total Protein (6.3-8.2) g/dL Albumin (3.5-5.0) g/dL Assessment and Plan Plan: 1. Severe CAD requiring urgent coronary artery bypass grafting with 3 vessels, left internal mammary artery to left anterior descending artery, reverse saphenous vein graft to the posterior lateral branch, radial artery to the obtuse marginal artery. Intensive care management by Dr. Chowdhury. Continue current management per cardiothoracic team. Incentive spirometry be utilizing opiate would be utilized patient will be on Lipitor 80 mg daily, and aspirin 325 mg daily, Lopressor. Artline, Cortis, chest tubes have been removed. Bhagat removed. Patient is waiting for [facility] care bed. 2. Severe uncontrolled diabetes mellitus, A1c of 11.9 not on any medication regimen prior to admission. Insulin drip and transition to Levemir 19 units daily and NovoLog 11 units with meals. life skills educator to meet with the patient. Glucometer ordered for home. 3. History of kidney stones, CKD stage I no current symptoms 4. History of asbestosis, requirement of maintenance breo, pulmonary Dr. S/P Majano following 5. Hyperlipidemia with tried before for LDL calculated unknown, we would continue on Lipitor 80 mg daily, and follow LDL measured as an outpatient 6. BPH without lower tract symptomatology, next GI prophylaxis DVT prophylaxis Discharge plan: home on Monday Impression and plan of care have been directed as dictated by the signing physician. Zahraa Nation nurse practitioner acting as scribe for signing physician.
[2018-04-21 12:30] LABS: Glucose,Whole Blood 219 mg/dL (75-99)
[2018-04-21] MEDS: LISINOPRIL 2.5 MG TAB PO SCH (12:43)
[2018-04-21] MEDS: CYANOCOBALAMIN 500 MCG TAB PO SCH (12:44)
--- NOTE | 2018-04-21 14:08 | PN ---
PROGRESS NOTE DATE OF SERVICE: 04/21/2018 Gopi Monique was seen again on 04/21/2018. He does not complain of shortness of breath. He has some pain in his chest from his recent surgery. His IS is up to 1200. He is starting to walk. PHYSICAL EXAMINATION: Respiratory rate is 28, pulse rate of 100, blood pressure 113/70. Oxygen saturation is 91% on 3 L by nasal cannula. HEENT reveals pupils that are equal. Chest reveals decreased breath sounds in the bases. Cardiovascular system is in S1, S2. Abdomen is soft. There is no pedal edema. Chest x-ray shows small bilateral effusions with some mild cardiomegaly. IMPRESSION AT THIS TIME: 1. Coronary artery disease, status post coronary artery bypass. 2. Asbestos exposure with possible asbestosis. Continue to increase his activity level. Incentive spirometry. Prognosis at this time is fair. MMODL / IJN: [id number] /
[2018-04-21 17:55] LABS: Glucose,Whole Blood 194 mg/dL (75-99)
[2018-04-21 20:41] LABS: Glucose,Whole Blood 231 mg/dL (75-99)
[2018-04-21] MEDS: METOPROLOL TARTRATE 50 MG TAB PO SCH (21:01)
[2018-04-21] MEDS: SENNOSIDES-DOCUSATE SODIUM 1 EACH TAB PO SCH (21:02)
[2018-04-22 05:03] LABS: HCT 33.4 % (39.0-53.0); HGB 11.5 gm/dL (13.0-17.5); MCH 30.5 pg (25.0-35.0); MCHC 34.4 g/dL (31.0-37.0); MCV 88.8 fL (80.0-100.0); Mean Platelet Volume 7.3; Platelet Count 215 k/uL (150-450); RBC 3.76 m/uL (4.30-5.90); RDW 13.7 % (11.5-15.5)
[2018-04-22 05:14] LABS: ALT 28 U/L (21-72); AST 26 U/L (17-59); Albumin 2.7 g/dL (3.5-5.0); Alkaline Phosphatase 51 U/L (38-126); Anion Gap 7 mmol/L; Blood Urea Nitrogen 16 mg/dL (9-20); Calcium 8.5 mg/dL (8.4-10.2); Carbon Dioxide 27 mmol/L (22-30); Chloride 105 mmol/L (98-107); Glucose 116 mg/dL (74-99); Potassium 3.7 mmol/L (3.5-5.1); Sodium 139 mmol/L (137-145); Total Bilirubin 0.5 mg/dL (0.2-1.3)
[2018-04-22] MEDS ORDERED: POTASSIUM CHLORIDE ER 20 MEQ TAB.ER PO SCH (07:00)
[2018-04-22 07:05] LABS: Glucose,Whole Blood 143 mg/dL (75-99)
[2018-04-22] MEDS ORDERED: ACETAMINOPHEN TAB 325 MG TAB PO PRN ×2 (07:05)
[2018-04-22] MEDS: KETOROLAC 30 MG/ML 1 ML VIAL IVP SCH ×3 (07:07→17:53)
[2018-04-22] MEDS: SYMBICORT 80-4.5 MCG INHALER INHALATION SCH ×2 (07:37→20:31)
[2018-04-22] MEDS: IPRATROPIUM-ALBUTEROL 3 ML NEB INHALATION SCH ×4 (07:37→20:31)
--- NOTE | 2018-04-22 07:37 | XR ---
EXAMINATION TYPE: XR chest 2V DATE OF EXAM: 04/22/2018 HISTORY: post cardiac surgery. REFERENCE: Previous study dated 04/21/2018. FINDINGS: There has been a midline sternotomy. The heart is mildly enlarged. There is platelike atele ctasis in the left upper lobe. The lungs are otherwise clear. I could not exclude small, bilateral ef fusions. IMPRESSION: 1. MILD CARDIOMEGALY. 2. SMALL, BILATERAL EFFUSIONS. 3. PLATELIKE ATELECTASIS, LEFT UPPER LOBE.
[2018-04-22 08:04] LABS: Glucose,Whole Blood 148 mg/dL (75-99)
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
[2018-04-22] MEDS ORDERED: FUROSEMIDE 10 MG/ML 2 ML VIAL IV ONE (08:06)
[2018-04-22] MEDS: INSULIN ASPART 100 UNIT/ML 1 ML 10 ML VIAL SQ SCH ×7 (08:42→20:52)
[2018-04-22] MEDS: CYCLOBENZAPRINE 10 MG TAB PO SCH (08:44)
[2018-04-22] MEDS: METOPROLOL TARTRATE 50 MG TAB PO SCH ×2 (08:44→20:52)
[2018-04-22] MEDS: ASPIRIN 325 MG TAB PO SCH (08:44)
[2018-04-22] MEDS: TAMSULOSIN 0.4 MG CAP.ER.24H PO SCH (08:45)
[2018-04-22] MEDS: LORATADINE 10 MG TAB PO SCH (08:45)
[2018-04-22] MEDS: amLODIPine 5 MG TAB PO SCH (08:45)
[2018-04-22] MEDS: DOCUSATE 100 MG CAP PO SCH (08:45)
[2018-04-22] MEDS: PANTOPRAZOLE 40 MG TABLET PO SCH (08:45)
[2018-04-22] MEDS: ATORVASTATIN 80 MG TAB PO SCH (08:46)
[2018-04-22] MEDS: MONTELUKAST 10 MG TAB PO SCH (08:46)
[2018-04-22] MEDS: CLOPIDOGREL 75 MG TAB PO SCH (08:47)
[2018-04-22] MEDS: HEPARIN SODIUM,PORCINE 5,000 UNIT/ML 1 ML VIAL SQ SCH ×2 (08:47→16:25)
[2018-04-22] MEDS: MAGNESIUM HYDROXIDE 2,400 MG/10 ML CUP PO PRN (08:52)
[2018-04-22] MEDS: INSULIN DETEMIR 100 UNIT/ML 10 ML VIAL SQ SCH (09:03)
[2018-04-22] MEDS: CYANOCOBALAMIN 500 MCG TAB PO SCH (11:24)
[2018-04-22] MEDS: LISINOPRIL 2.5 MG TAB PO SCH (11:26)
--- NOTE | 2018-04-22 11:52 | P.PN ---
Subjective Progress Note Date: 04/22/18 This is a pleasant 53-year-old gentleman patient of Dr. Shahid Hall/Jak Majano. He has underlying diabetes mellitus, type II uncontrolled, off metformin since August 2017 with last A1c of 11, admitted to the cardiac unit for planned CABG scheduled on 04/18/2018. He also has history of asbestosis with pneumoconioses, COPD, kidney stones . He was evaluated for the dyspnea and exertion that included a stress test and a cardiac cath, cardiac cath showed severely calcified right and left systems and mid RCA stenosis 80-90%, proximal LAD stenosis 80% with mid LAD stenosis 20% ostial left circumflex 70% and proximal circumflex 90% stenosis. Cardiothoracic surgery has been consulted for cardiac revascularization system thru CABG. Patient has had no other complications or symptoms in the past no chest pain has. She shortness of breath and exertion, no edema, no eye issues, no CKD no prior history of CVA and VA CHF or history of DVT or PE in the past. Patient does not require any O2 requirements, nausea devices for ambulation prior to admission. 04/19: Yesterday, patient underwent urgent coronary artery bypass grafting with 3 vessels, left internal mammary artery to left anterior descending artery, reverse saphenous vein graft to the posterior lateral branch, radial artery to the obtuse marginal artery. Patient is now seen in the intensive care unit. He was successfully extubated this morning. He has not required vasopressors. Capillary blood glucose between 131 and 159. Hemoglobin is stable at 11. Patient remains with [address], right sided Cordis, Bhagat catheter , AV epicardial pacemaker wires. The patient is awake. He has some generalized discomfort. 04/20: Patient remains in intensive care unit. He has had chest tubes removed, heart line and Cordis. He is eating a diet and this is to be advanced. Blood sugars have been elevated in the 200s and is currently on insulin drip. We'll plan to transition him over to Levemir, scheduled NovoLog and NovoLog scale. Bhagat is currently in place and patient received dose Lasix. Lopressor was increased. We have asked manufacturing technology professor to meet with the patient. 04/21: The patient has been ambulating and doing well with increased activity. His will walk with him in the hallway. He has also increased use of incentive spirometry. Blood sugars are improved but continue to run high for which Levemir has been increased to 19 units and scheduled NovoLog to 11 units 3 times daily with meals. It is noted that he and his wanted him to go home on pens and this will be in the form of Levemir and Humalog as covered by his insurance. Glucometer ordered and to be arranged by counter caser. 04/22: Patient remains in intensive care unit awaiting a selective care bed. He has been walking in the hallway. He denies any shortness of breath. He is still planned for discharge home on Monday. Blood sugars are much improved. No thrush. Patient is requesting 30 to be resumed at discharge. Review Of Systems: Constitutional: No fever, no chills, no night sweats. No weight change. no weakness, fatigue or lethargy. EENT: No headache. No blurred vision or double vision, no loss of vision. No loss of Hearing, no ringing in the ears, no dizziness. No nasal drainage or congestion. No epistaxis. No sore throat. Lungs: no shortness of breath, +cough, + sputum production. Cardiovascular: + chest discomfort, no lower extremity edema. No palpitations. No paroxysmal nocturnal dyspnea. No orthopnea. No lightheadedness or dizziness. No syncopal episodes. Abdominal: No abdominal pain. No nausea, vomiting. No diarrhea. No constipation. No bloody or tarry stools. No loss of appetite. Genitourinary: No dysuria, increased frequency, urgency. No urinary retention. Bhagat. Musculoskeletal: No myalgias. No muscle weakness, no gait dysfunction, no frequent falls. No back pain. No neck pain. Integumentary: + wounds, no lesions. No rash or pruritus. No unusual bruising. No change in hair or nails. Neurologic: No aphasia. No facial droop. No change in mentation. No head injury. No headache. No paralysis. No paresthesia. Psychiatric: No depression. No anxiety. No mood swings. Endocrine: + abnormal blood sugars. No weight change. No excessive sweating or thirst. No cold intolerance. Objective - Vital Signs Vital signs: Vital Signs Temp 98.7 F 04/22/18 08:00 Pulse 106 H 04/22/18 08:00 Resp 18 04/22/18 08:00 BP 133/71 04/22/18 08:00 Pulse Ox 97 04/22/18 08:00 Intake & Output 04/21/18 04/22/18 04/22/18 18:59 06:59 18:59 Intake Total 1590 Output Total 1145 300 Balance 445 -300 Weight 84.3 kg Intake: Oral 1340 Tube Feeding 250 Output: Urine 1145 300 Other: Voiding Method Urinal Bedside Commode Urinal # Voids 1 ABP, PAP, CO, CI - Last Documented Arterial Blood Pressure 161/64 Pulmonary Artery Pressure 31/17 Cardiac Output 4.1 Cardiac Index 2.1 - Exam General appearance: cooperative, no acute distress, patient is sitting up in a recliner. Patient's , father and brothers at bedside - EENT Eyes: anicteric sclerae, EOMI, PERRLA, dentition normal, normal appearance ENT: NA/AT, normal oropharynx - Neck Neck: no lymphadenopathy, normal ROM, no other, no rigidity, no stridor, no thyromegaly, positive right Cordis - Respiratory Respiratory: bilateral: CTA, negative: diminished, dullness - Cardiovascular Rhythm: regular Heart sounds: normal: S1, S2 Abnormal Heart Sounds: no systolic murmur, no diastolic murmur, no rub, no S3 Gallop, no S4 Gallop, no click, no other, [address], pacemaker wires - Gastrointestinal General gastrointestinal: normal bowel sounds, soft - Genitourinary Male genitourinary: scrotal edema (None), - Integumentary Integumentary: no calor, no cellulitis, no cyanotic, decreased turgor, no flushed, no jaundiced, normal, no normal turgor, no pale, no rash, no ulcer - Neurologic Neurologic: CNII-XII intact, focal deficits - Psychiatric Psychiatric: A&O x's 3, appropriate affect - Labs CBC & Chem 7: 04/22/18 04:50 04/22/18 04:50 Labs: Abnormal Lab Results - Last 24 Hours (Table) 04/21/18 04/21/18 04/21/18 Range/Units 12:18 17:44 20:30 RBC (4.30-5.90) m/uL Hgb (13.0-17.5) gm/dL Hct (39.0-53.0) % Glucose (74-99) mg/dL POC Glucose (mg/dL) 219 H 194 H 231 H (75-99) mg/dL Total Protein (6.3-8.2) g/dL Albumin (3.5-5.0) g/dL 04/22/18 04/22/18 04/22/18 Range/Units 04:50 04:50 06:53 RBC 3.76 L (4.30-5.90) m/uL Hgb 11.5 L (13.0-17.5) gm/dL Hct 33.4 L (39.0-53.0) % Glucose 116 H (74-99) mg/dL POC Glucose (mg/dL) 143 H (75-99) mg/dL Total Protein 5.0 L (6.3-8.2) g/dL Albumin 2.7 L (3.5-5.0) g/dL 04/22/18 Range/Units 07:53 RBC (4.30-5.90) m/uL Hgb (13.0-17.5) gm/dL Hct (39.0-53.0) % Glucose (74-99) mg/dL POC Glucose (mg/dL) 148 H (75-99) mg/dL Total Protein (6.3-8.2) g/dL Albumin (3.5-5.0) g/dL Assessment and Plan Plan: 1. Severe CAD requiring urgent coronary artery bypass grafting with 3 vessels, left internal mammary artery to left anterior descending artery, reverse saphenous vein graft to the posterior lateral branch, radial artery to the obtuse marginal artery. Intensive care management by Dr. Chowdhury. Continue current management per cardiothoracic team. Incentive spirometry be utilizing opiate would be utilized patient will be on Lipitor 80 mg daily, and aspirin 325 mg daily, Lopressor. Artline, Cortis, chest tubes have been removed. Bhagat removed. Patient is waiting for selective care bed. 2. Severe uncontrolled diabetes mellitus, A1c of 11.9 not on any medication regimen prior to admission. Insulin drip and transition to Levemir 19 units daily and NovoLog 11 units with meals. security operations specialist to meet with the patient. Glucometer ordered for home. Patient and are requesting pens for insulins at home. Insurance will not cover for NovoLog and this will be switched to Humalog at the time of discharge. Anticipate he will be discharged on the current dosing of Levemir and NovoLog. 3. History of kidney stones, CKD stage I no current symptoms 4. History of asbestosis, requirement of maintenance breo, pulmonary DrSunitha S/P Melecio following 5. Hyperlipidemia with tried before for LDL calculated unknown, we would continue on Lipitor 80 mg daily, and follow LDL measured as an outpatient 6. BPH without lower tract symptomatology, next GI prophylaxis DVT prophylaxis Discharge plan: home on Monday Impression and plan of care have been directed as dictated by the signing physician. Zahraa Nation nurse practitioner acting as scribe for signing physician.
[2018-04-22 12:31] LABS: Glucose,Whole Blood 203 mg/dL (75-99)
--- NOTE | 2018-04-22 13:03 | PN ---
PROGRESS NOTE Mr. Monique is 53-year-old male with a history of coronary artery disease status post coronary artery bypass grafting. He is doing well today. He feels stronger. His breathing is stable. He is denying any chest pain. He denies any dizziness or palpitations. He denies any nausea. He is in sinus mechanism without any evidence of tachycardia. He continues to be on amlodipine 5 mg daily, aspirin once a day, Lipitor 80 mg daily, Plavix 75 mg daily, lisinopril 2.5 mg daily and metoprolol tartrate 50 mg twice a day. PHYSICAL EXAMINATION: Blood pressure 133/70 with a heart in 90s, lungs with mild decrease in breath sounds. No wheezes. HEART: Regular rate and rhythm S1, S2. No S3. No rub. ABDOMEN: Soft and nontender. Extremities: No significant edema. LAB DATA: BUN and creatinine 16 and 0.8. Hemoglobin of 11.5. Potassium . IMPRESSION: 1. Status post coronary artery bypass grafting stable. 2. Hypertension, controlled. 3. Hyperlipidemia. RECOMMENDATIONS: From the cardiac standpoint, he is stable. We will continue incentive spirometry. Increase his level of activity and hopefully he will be able to be discharged home in the next 24 to 48 hours. MMODL / IJN: [id number] /
--- NOTE | 2018-04-22 15:18 | PN ---
PROGRESS NOTE DATE OF SERVICE: April 20, 2018. His IS is slightly higher than 1200. He does not feel short of breath. He has some chest discomfort from his recent surgery. PHYSICAL EXAMINATION: Respiratory rate is 14, pulse 87, temperature 98.5, O2 saturation is in the mid 90s on room air. HEENT reveals pupils are equal. Chest is clear. Cardiovascular system is S1, S2. Abdomen is soft. There is no pedal edema. LABS: Reveal a white count of 7, hemoglobin of 11.5, glucose of 203. IMPRESSION: 1. Coronary artery disease status post coronary artery bypass. 2. Asbestos exposure with asbestosis. 3. Asthma with chronic obstructive pulmonary disease. Continue incentive spirometry. Increase his activity level. I agree with possible discharge tomorrow. MMODL / IJN: [id number] /
[2018-04-22 17:19] LABS: Glucose,Whole Blood 137 mg/dL (75-99)
[2018-04-22 20:46] LABS: Glucose,Whole Blood 151 mg/dL (75-99)
[2018-04-22] MEDS: SENNOSIDES-DOCUSATE SODIUM 1 EACH TAB PO SCH (20:52)
[2018-04-22] MEDS: traMADol 50 MG TAB PO PRN (22:00)
[2018-04-23] MEDS: KETOROLAC 30 MG/ML 1 ML VIAL IVP SCH ×2 (00:01→06:14)
[2018-04-23] MEDS: HEPARIN SODIUM,PORCINE 5,000 UNIT/ML 1 ML VIAL SQ SCH ×2 (00:01→07:34)
[2018-04-23 05:15] LABS: HGB 12.5 gm/dL (13.0-17.5); MCH 30.3 pg (25.0-35.0); MCHC 33.7 g/dL (31.0-37.0); MCV 89.9 fL (80.0-100.0); Mean Platelet Volume 7.2; Platelet Count 276 k/uL (150-450); RBC 4.12 m/uL (4.30-5.90); RDW 13.7 % (11.5-15.5); WBC 7.6 k/uL (3.8-10.6)
[2018-04-23 05:25] LABS: Anion Gap 8 mmol/L; Blood Urea Nitrogen 17 mg/dL (9-20); Calcium 9.3 mg/dL (8.4-10.2); Carbon Dioxide 23 mmol/L (22-30); Chloride 105 mmol/L (98-107); Glucose 144 mg/dL (74-99); Potassium 4.4 mmol/L (3.5-5.1); Sodium 136 mmol/L (137-145)
[2018-04-23] MEDS: INSULIN ASPART 100 UNIT/ML 1 ML 10 ML VIAL SQ SCH ×3 (07:03→12:42)
[2018-04-23 07:05] LABS: Glucose,Whole Blood 168 mg/dL (75-99)
[2018-04-23] MEDS: IPRATROPIUM-ALBUTEROL 3 ML NEB INHALATION SCH ×2 (07:17→11:20)
[2018-04-23] MEDS: SYMBICORT 80-4.5 MCG INHALER INHALATION SCH (07:17)
--- NOTE | 2018-04-23 07:29 | XR ---
EXAMINATION TYPE: XR chest 2V DATE OF EXAM: 04/23/2018 COMPARISON: 04/22/2018 HISTORY: Shortness of breath TECHNIQUE: Frontal and lateral views of the chest are obtained. FINDINGS: Scattered senescent parenchymal changes noted. Hyperinflation compatible with COPD. Strandy density left lung base may reflect atelectasis. No evidence for pneumothorax. Heart size is stable. Mediastinal structures are stable and grossly unremarkable. No evidence for hilar prominence. Degenerative changes dorsal spine. IMPRESSION: 1. Strandy density left lung base may reflect atelectasis. No evidence for pneumothorax.
[2018-04-23] MEDS: PANTOPRAZOLE 40 MG TABLET PO SCH (07:35)
[2018-04-23] MEDS: ASPIRIN 325 MG TAB PO SCH (07:45)
[2018-04-23] MEDS: ATORVASTATIN 80 MG TAB PO SCH (07:45)
[2018-04-23] MEDS: DOCUSATE 100 MG CAP PO SCH (07:45)
[2018-04-23] MEDS: amLODIPine 5 MG TAB PO SCH (07:46)
[2018-04-23] MEDS: LORATADINE 10 MG TAB PO SCH (07:46)
[2018-04-23] MEDS: MONTELUKAST 10 MG TAB PO SCH (07:46)
[2018-04-23] MEDS: METOPROLOL TARTRATE 50 MG TAB PO SCH (07:46)
[2018-04-23] MEDS: CLOPIDOGREL 75 MG TAB PO SCH (07:46)
[2018-04-23] MEDS: CYCLOBENZAPRINE 10 MG TAB PO SCH (07:47)
[2018-04-23] MEDS: TAMSULOSIN 0.4 MG CAP.ER.24H PO SCH (07:52)
[2018-04-23] MEDS: INSULIN DETEMIR 100 UNIT/ML 10 ML VIAL SQ SCH (07:52)
[2018-04-23 08:01] VITALS: TEMP 98.1
[2018-04-23] MEDS: MAGNESIUM HYDROXIDE 2,400 MG/10 ML CUP PO PRN (08:08)
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
--- NOTE | 2018-04-23 10:45 | PN ---
PROGRESS NOTE Mr. Monique is also is a 53-year-old male, status post coronary artery bypass grafting. He is doing well this morning. His breathing has been stable. He denies any chest pain or palpitation. No dizziness. He is staying in sinus mechanism without any evidence of atrial fibrillation. He is doing well on the incentive spirometry. He is ambulating without difficulty. Continues to be on aspirin once a day, amlodipine 5 mg daily, Lipitor 80 mg daily, Plavix 75 mg daily and lisinopril 2.5 mg daily, in addition to metoprolol tartrate 50 mg twice a day. PHYSICAL EXAMINATION: Blood pressure 136/90 with a heart rate in the 80s. LUNGS: Clear. HEART: Regular rate and rhythm. S1, S2. No S3. No rub. ABDOMEN: Soft, nontender. EXTREMITIES: No edema. LAB DATA: Revealed BUN and creatinine 17 and 0.86. Potassium of 4.4. IMPRESSION: 1. Status post coronary artery bypass grafting, stable. 2. Hypertension. 3. Hyperlipidemia. RECOMMENDATION: I will expect he should be able to be discharged home today and followed as an outpatient by Dr. Suh. I discussed with him the importance of continuing incentive spirometry. Because of his cardiomyopathy, I will increase the dose of his JOURDAN inhibitor to 5 mg daily. MMODL / IJN: [id number] /
[2018-04-23 11:31] LABS: Glucose,Whole Blood 211 mg/dL (75-99)
[2018-04-23] MEDS ORDERED: LISINOPRIL 5 MG TAB PO SCH (12:00)
[2018-04-23] MEDS ORDERED: INSULIN ASPART 100 UNIT/ML 1 ML 10 ML VIAL SQ SCH (12:30)
[2018-04-23 12:31] VITALS: BP 117/76; PULSE 90; RESP 16
[2018-04-23] MEDS: CYANOCOBALAMIN 500 MCG TAB PO SCH (12:41)
--- NOTE | 2018-04-23 15:21 | PN ---
PROGRESS NOTE DATE OF SERVICE: 04/23/2018. INTERVAL HISTORY: Patient is a 53-year-old male who is seen sitting up in a chair, status post coronary artery bypass graft. Patient is awake, alert, comfortable. Denies shortness of breath. Plan is for patient to discharge home today. Patient is afebrile, hemodynamically stable, in no acute distress. PHYSICAL EXAM: Vital signs, temp is 98.1, heart rate is 84, respiratory rate is 16, blood pressure is 117/76, O2 SATs 91% on room air. HEENT. Head is normocephalic, atraumatic. Neck is supple. Trachea is midline. LUNGS: With a few scattered rales and diminished bases. HEART: S1, S2 are heard. Not tachycardic. ABDOMEN: Soft. Bowel sounds are heard. EXTREMITIES: With no edema. NEUROLOGIC: Patient is awake and alert. LABS: White count 7.6, hemoglobin is 12.5, hematocrit 37.0 with 276,000 platelets. Sodium is 136, potassium is 4.4, chloride 105, CO2 is 23, anion gap is 8, BUN is 17, creatinine 0.86, glucose is 144, calcium is 9.3. IMAGING: Chest x-ray done this a.m. with strandy density left lung base may reflect atelectasis. No evidence for pneumothorax. IMPRESSION: 1. Coronary artery disease, status post coronary artery bypass graft. 2. Asbestos exposure with asbestosis. 3. Asthma with chronic obstructive pulmonary disease. PLAN: Continue current medications which have been reviewed. Continue to encourage incentive spirometry and pulmonary hygiene. Continue to increase activity and agree with discharge home. Patient is stable from a pulmonary perspective, patient to follow up in the [place] office status post discharge. MMODL / IJN: [id number] /
[2018-04-24] MEDS ORDERED: INSULIN DETEMIR 100 UNIT/ML 10 ML VIAL SQ SCH (09:00)
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
--- NOTE | 2018-04-25 09:26 | P.PN ---
Subjective Progress Note Date: 04/23/18 This is a pleasant 53-year-old gentleman patient of Dr. Shahid Hall/Jak Majano. He has underlying diabetes mellitus, type II uncontrolled, off metformin since August 2017 with last A1c of 11, admitted to the cardiac unit for planned CABG scheduled on 04/18/2018. He also has history of asbestosis with pneumoconioses, COPD, kidney stones . He was evaluated for the dyspnea and exertion that included a stress test and a cardiac cath, cardiac cath showed severely calcified right and left systems and mid RCA stenosis 80-90%, proximal LAD stenosis 80% with mid LAD stenosis 20% ostial left circumflex 70% and proximal circumflex 90% stenosis. Cardiothoracic surgery has been consulted for cardiac revascularization system thru CABG. Patient has had no other complications or symptoms in the past no chest pain has. She shortness of breath and exertion, no edema, no eye issues, no CKD no prior history of CVA and UT CHF or history of DVT or PE in the past. Patient does not require any O2 requirements, nausea devices for ambulation prior to admission. 04/19: Yesterday, patient underwent urgent coronary artery bypass grafting with 3 vessels, left internal mammary artery to left anterior descending artery, reverse saphenous vein graft to the posterior lateral branch, radial artery to the obtuse marginal artery. Patient is now seen in the intensive care unit. He was successfully extubated this morning. He has not required vasopressors. Capillary blood glucose between 131 and 159. Hemoglobin is stable at 11. Patient remains with [address], right sided Cordis, Bhagat catheter , AV epicardial pacemaker wires. The patient is awake. He has some generalized discomfort. 04/20: Patient remains in intensive care unit. He has had chest tubes removed, heart line and Cordis. He is eating a diet and this is to be advanced. Blood sugars have been elevated in the 200s and is currently on insulin drip. We'll plan to transition him over to Levemir, scheduled NovoLog and NovoLog scale. Bhagat is currently in place and patient received dose Lasix. Lopressor was increased. We have asked pipe manufacture supervisor to meet with the patient. 04/21: The patient has been ambulating and doing well with increased activity. His will walk with him in the hallway. He has also increased use of incentive spirometry. Blood sugars are improved but continue to run high for which Levemir has been increased to 19 units and scheduled NovoLog to 11 units 3 times daily with meals. It is noted that he and his wanted him to go home on pens and this will be in the form of Levemir and Humalog as covered by his insurance. Glucometer ordered and to be arranged by case planner. 04/22: Patient remains in intensive care unit awaiting a selective care bed. He has been walking in the hallway. He denies any shortness of breath. He is still planned for discharge home on Monday. Blood sugars are much improved. No thrush. Patient is requesting Breo to be resumed at discharge. 04/23: Patient has been ambulating in the hallway and doing well. He is scheduled for discharge home. Blood sugars are still running a little on the high side and Levemir will be increased to Levemir 25 units at bedtime and Humalog 15 units with meals. Patient has been advised to follow-up with Dr. Clemens, oracle engineer as well as his primary care physician. Patient is being discharged today in stable condition. Review Of Systems: Constitutional: No fever, no chills, no night sweats. No weight change. no weakness, fatigue or lethargy. EENT: No headache. No blurred vision or double vision, no loss of vision. No loss of Hearing, no ringing in the ears, no dizziness. No nasal drainage or congestion. No epistaxis. No sore throat. Lungs: no shortness of breath, no cough, no sputum production. Cardiovascular: + chest discomfort, no lower extremity edema. No palpitations. No paroxysmal nocturnal dyspnea. No orthopnea. No lightheadedness or dizziness. No syncopal episodes. Abdominal: No abdominal pain. No nausea, vomiting. No diarrhea. No constipation. No bloody or tarry stools. No loss of appetite. Genitourinary: No dysuria, increased frequency, urgency. No urinary retention. Bhagat. Musculoskeletal: No myalgias. No muscle weakness, no gait dysfunction, no frequent falls. No back pain. No neck pain. Integumentary: + wounds, no lesions. No rash or pruritus. No unusual bruising. No change in hair or nails. Neurologic: No aphasia. No facial droop. No change in mentation. No head injury. No headache. No paralysis. No paresthesia. Psychiatric: No depression. No anxiety. No mood swings. Endocrine: + abnormal blood sugars. No weight change. No excessive sweating or thirst. No cold intolerance. Objective - Vital Signs Vital signs: Vital Signs Temp 98.1 F 04/23/18 08:00 Pulse 91 04/23/18 08:00 Resp 19 04/23/18 08:00 BP 111/76 04/23/18 08:00 Pulse Ox 94 L 04/23/18 08:00 Intake & Output 04/22/18 04/23/18 04/23/18 18:59 06:59 18:59 Output Total 650 Balance -650 Weight 85.4 kg Output: Urine 650 Other: Voiding Method Toilet Toilet Toilet Urinal Urinal Urinal # Voids 1 ABP, PAP, CO, CI - Last Documented Arterial Blood Pressure 161/64 Pulmonary Artery Pressure 31/17 Cardiac Output 4.1 Cardiac Index 2.1 - Exam General appearance: cooperative, no acute distress, patient is ambulating in the hallway without chest pain, shortness of breath, lightheadedness or dizziness. - EENT Eyes: anicteric sclerae, EOMI, PERRLA, dentition normal, normal appearance ENT: NA/AT, normal oropharynx - Neck Neck: no lymphadenopathy, normal ROM, no other, no rigidity, no stridor, no thyromegaly, positive right Cordis - Respiratory Respiratory: bilateral: CTA, negative: diminished, dullness - Cardiovascular Rhythm: regular Heart sounds: normal: S1, S2 Abnormal Heart Sounds: no systolic murmur, no diastolic murmur, no rub, no S3 Gallop, no S4 Gallop, no click, no other, [address], pacemaker wires - Gastrointestinal General gastrointestinal: normal bowel sounds, soft - Genitourinary Male genitourinary: scrotal edema (None), - Integumentary Integumentary: no calor, no cellulitis, no cyanotic, decreased turgor, no flushed, no jaundiced, normal, no normal turgor, no pale, no rash, no ulcer - Neurologic Neurologic: CNII-XII intact, focal deficits - Psychiatric Psychiatric: A&O x's 3, appropriate affect - Labs CBC & Chem 7: 04/23/18 03:59 04/23/18 03:59 Labs: Abnormal Lab Results - Last 24 Hours (Table) 04/22/18 04/22/18 04/22/18 Range/Units 12:20 17:07 20:34 RBC (4.30-5.90) m/uL Hgb (13.0-17.5) gm/dL Hct (39.0-53.0) % Sodium (137-145) mmol/L Glucose (74-99) mg/dL POC Glucose (mg/dL) 203 H 137 H 151 H (75-99) mg/dL 04/23/18 04/23/18 04/23/18 Range/Units 03:59 03:59 06:53 RBC 4.12 L (4.30-5.90) m/uL Hgb 12.5 L (13.0-17.5) gm/dL Hct 37.0 L (39.0-53.0) % Sodium 136 L (137-145) mmol/L Glucose 144 H (74-99) mg/dL POC Glucose (mg/dL) 168 H (75-99) mg/dL Assessment and Plan Plan: 1. Severe CAD requiring urgent coronary artery bypass grafting with 3 vessels, left internal mammary artery to left anterior descending artery, reverse saphenous vein graft to the posterior lateral branch, radial artery to the obtuse marginal artery. Intensive care management by Dr. Chowdhury. Continue current management per cardiothoracic team. Incentive spirometry be utilizing opiate would be utilized patient will be on Lipitor 80 mg daily, and aspirin 325 mg daily, Lopressor. Artline, Cortis, chest tubes have been removed. Bhagat removed. Patient is waiting for selective care bed. 2. Severe uncontrolled diabetes mellitus, A1c of 11.9 not on any medication regimen prior to admission. Insulin drip and transition to Levemir 19 units daily and NovoLog 11 units with meals. plastics patternmaker to meet with the patient. Glucometer ordered for home. Patient and are requesting pens for insulins at home. Insurance will not cover for NovoLog and this will be switched to Humalog at the time of discharge. Levemir dosing increased and NovoLog changed to Humalog for home. 3. History of kidney stones, CKD stage I no current symptoms 4. History of asbestosis, requirement of maintenance breo, pulmonary Dr. S/P Melecio following 5. Hyperlipidemia with tried before for LDL calculated unknown, we would continue on Lipitor 80 mg daily, and follow LDL measured as an outpatient 6. BPH without lower tract symptomatology, next GI prophylaxis DVT prophylaxis Discharge plan: home with [facility] Impression and plan of care have been directed as dictated by the signing physician. Zahraa Nation nurse practitioner acting as scribe for signing physician.
--- NOTE | 2018-04-25 09:55 | P.ARTDOP ---
Arterial Doppler Bilateral radial artery studies: Reason for study: Preop CABG Date of study: 04/16/2018 Findings: The right radial was not utilized since it was used as heart cath site. Left radial artery showed no segmental or other pressure gradients. On digital plethysmography with radial artery compression we find no significant pressure changes. The size of the left radial ranges between 3.0 x 3.2 mm to 3.2 x 3.5 mm. Impression: Usable left radial artery
--- NOTE | 2018-04-25 09:57 | P.VSCSTY ---
Greater Saphenous Vein Mapping This is bilateral lower extremity greater saphenous vein mapping. Date of service 04/16/2018 Vein quality and ultrasound appearance no obvious wall changes or intraluminal thrombus are seen. Vein size groin right 7.6 x 7.9 groin left 8.5 x 7.8 High thigh right 5.3 x 5.6 high thigh left 4.8 x 5.8 Mid thigh right 3.4 x 4.4 mid thigh left 4.1 x 4.3 Above-knee right 3.4 x 4.2 above- knee left 3.6 x 4.1 Below knee right 3.7 x 4.4 below-knee left 3.0 x 3.2 Mid calf right 2.3 x 3.0 mid calf left 2.1 x 2.9 Ankle right 1.9 x 2.5 ankle left 1.9 x 2.9 Impression usable bilateral greater saphenous vein. A bit large at the groin level and a bit small at the ankle levels..
--- NOTE | 2018-04-25 09:58 | P.ARTDOP ---
Arterial Doppler LOWER EXTREMITY ARTERIAL DOPPLER: DATE OF SERVICE: 04/16/2018 Reason for study: Preop CABG. Doppler waveforms: Multiphasic bilaterally throughout. Pulse volume recording: []. Pressure gradients: None. Ankle-brachial indices: Greater than 1 bilaterally. Toe pressures: [] on the right, [] on the left Impression: Normal study.
== END 2018-04-23 13:30 | disposition home health service (06) | DRG 234 ==
LOC: CATHCVL 10:05 → 3SCARD 11:17 → 2SICU 04-18 06:22 → CATHCVL 04-18 08:46 → 2SICU 04-18 08:47
PROVIDERS: ADMIT Internal Medicine Interventional Cardiology; ATTEND Surgery
PROC: 4A023N7 Measurement of Cardiac Sampling and Pressure, Left Heart, Percutaneous Approach (ICD-10-PCS; 2018-04-16)
PROC: B2111ZZ Fluoroscopy of Multiple Coronary Arteries using Low Osmolar Contrast (ICD-10-PCS; 2018-04-16)
PROC: 021009W Bypass Coronary Artery, One Artery from Aorta with Autologous Venous Tissue, Open Approach (ICD-10-PCS; 2018-04-18)
PROC: 03BC4ZZ Excision of Left Radial Artery, Percutaneous Endoscopic Approach (ICD-10-PCS; 2018-04-18)
PROC: 06BQ4ZZ Excision of Left Saphenous Vein, Percutaneous Endoscopic Approach (ICD-10-PCS; 2018-04-18)
PROC: 5A1221Z Performance of Cardiac Output, Continuous (ICD-10-PCS; 2018-04-18)
PROC: B24BZZ4 Ultrasonography of Heart with Aorta, Transesophageal (ICD-10-PCS; 2018-04-18)
PROC: 02100Z9 Bypass Coronary Artery, One Artery from Left Internal Mammary, Open Approach (ICD-10-PCS; principal; 2018-04-18 08:00)
PROC: 02100AW Bypass Coronary Artery, One Artery from Aorta with Autologous Arterial Tissue, Open Approach (ICD-10-PCS; 2018-04-18 08:00)
DX: I25.10 Atherosclerotic heart disease of native coronary artery without angina pectoris (principal); J98.11 Atelectasis; E11.22 Type 2 diabetes mellitus with diabetic chronic kidney disease; E11.65 Type 2 diabetes mellitus with hyperglycemia; E78.5 Hyperlipidemia, unspecified; F11.21 Opioid dependence, in remission; F17.201 Nicotine dependence, unspecified, in remission; I25.5 Ischemic cardiomyopathy; I12.9 Hypertensive chronic kidney disease with stage 1 through stage 4 chronic kidney disease, or unspecified chronic kidney disease; E66.9 Obesity, unspecified; I34.0 Nonrheumatic mitral (valve) insufficiency; J44.9 Chronic obstructive pulmonary disease, unspecified; N40.0 Benign prostatic hyperplasia without lower urinary tract symptoms; J61 Pneumoconiosis due to asbestos and other mineral fibers; G43.909 Migraine, unspecified, not intractable, without status migrainosus; N18.1 Chronic kidney disease, stage 1; Z77.090 Contact with and (suspected) exposure to asbestos; Z79.82 Long term (current) use of aspirin; Z79.899 Other long term (current) drug therapy; Z68.30 Body mass index [BMI] 30.0-30.9, adult; Z87.442 Personal history of urinary calculi; Z82.49 Family history of ischemic heart disease and other diseases of the circulatory system; Z84.89 Family history of other specified conditions
CPT/HCPCS: 71045; 71046; 80048; 80053; 80061; 80074; 81003; 82330; 82805; 83036; 83735; 84100; 84132; 84443; 85025; 85027; 85520; 85610; 85730; 86850; 86891; 86900; 86901; 86920; 87070; 87086; 93306; 93458; 93880; 93922; 93970; 94002; 94003; 94150; 94640

== ENCOUNTER 2018-06-25 11:41 | Observation (INO) | payer OTHER ==
--- NOTE | 2018-06-25 12:26 | ED ---
General Adult HPI - General Chief complaint: Chest Pain Stated complaint: chest pain Time Seen by Provider: 06/25/18 11:53 Source: patient, RN notes reviewed, old records reviewed Mode of arrival: ambulatory Limitations: no limitations - History of Present Illness Initial comments: 53-year-old male presenting with left-sided chest pain. Patient's has history of previous triple-vessel bypass in March 2018. He has had intermittent chest pain since the time of his surgery. Several episodes daily, this has increased in frequency over the past several days, he is now having 10-20 episodes daily, lasting several minutes on average. This is left-sided nonradiating chest pain. Patient denies associated vomiting or diaphoresis. He has been taking medications as prescribed. He does report some left-sided chest numbness after the surgery. No trauma. Does not feel he over did it. Denies any exertional component to his pain. Patient did contact his bee keeper who recommended he presented to emergency department for evaluation. - Related Data Home Medications Medication Instructions Recorded Confirmed Cinnamon Bark [Cinnamon] 1,000 mg PO QAM 04/11/18 06/25/18 Cyanocobalamin (Vitamin B-12) 1,000 mcg PO QAM 04/11/18 06/25/18 [Vitamin B-12] Fluticasone/Vilanterol [Breo 1 puff INHALATION RT-DAILY 04/11/18 06/25/18 Ellipta 100-25 Mcg Inhaler] Loratadine [Claritin] 10 mg PO QAM 04/11/18 06/25/18 Montelukast [Singulair] 10 mg PO QAM 04/11/18 06/25/18 Tamsulosin HCl [Flomax] 0.4 mg PO QAM 04/11/18 06/25/18 Acetaminophen [Tylenol Extra 1,000 mg PO QID PRN 06/25/18 06/25/18 Strength] Arginine Oxoglurate [l-Arginine] 350 mg PO DAILY 06/25/18 06/25/18 Calcium/Magnesium 3 tab PO DAILY 06/25/18 06/25/18 Cranberry Fruit Concentrate 450 mg PO DAILY 06/25/18 06/25/18 [Cranberry] Diclofenac Sodium Gel [Voltaren 2 gm TOPICAL QID 06/25/18 06/25/18 Gel] Lisinopril [Zestril] 2.5 mg PO DAILY 06/25/18 06/25/18 Metoprolol Tartrate [Lopressor] 25 mg PO BID 06/25/18 06/25/18 amLODIPine [Norvasc] 5 mg PO DAILY 06/25/18 06/25/18 Previous Rx's Medication Instructions Recorded Aspirin 325 mg PO DAILY #30 tab 04/23/18 Atorvastatin [Lipitor] 80 mg PO DAILY #30 tab 04/23/18 Clopidogrel [Plavix] 75 mg PO DAILY #30 tab 04/23/18 Insulin Detemir [Levemir Flextouch] 25 unit SQ HS #5 insuln.pen 04/23/18 Insulin Lispro [humaLOG Kwikpen] 15 unit SQ AC-TID #5 insuln.pen 04/23/18 Pantoprazole [Protonix] 40 mg PO AC-BRKFST #30 tablet. 04/23/18 Allergies Allergy/AdvReac Type Severity Reaction Status Date / Time No Known Allergies Allergy Verified 06/25/18 13:19 Review of Systems ROS Statement: Those systems with pertinent positive or pertinent negative responses have been documented in the HPI. ROS Other: All systems not noted in ROS Statement are negative. 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 History of Any Multi-Drug Resistant Organisms: None Reported Past Surgical History: Adenoidectomy, Coronary Bypass/CABG, Orthopedic Surgery, Tonsillectomy Additional Past Surgical History / Comment(s): kidney stone removed, rhinoplasty , lithotripsy x3 Past Anesthesia/Blood Transfusion Reactions: No Reported Reaction Past Psychological History: No Psychological Hx Reported Smoking Status: Former smoker Past Alcohol Use History: None Reported Past Drug Use History: Prescription Drug Abuse - Past Family History Father Family Medical History: Coronary Artery Disease (CAD), Hyperlipidemia, Hypertension Mother Family Medical History: Cancer (Ovarian) Brother(s) History Unknown: Yes (Kidney stone) Sister(s) History Unknown: Yes (Kidney stone) Daughter(s) Family Medical History: Neurologic Disorder (ADHD) Son(s) Family Medical History: Neurologic Disorder (ADHD) General Exam Limitations: no limitations General appearance: alert, in no apparent distress Head exam: Present: atraumatic, normocephalic Eye exam: Present: normal appearance, PERRL, EOMI ENT exam: Present: normal exam Neck exam: Present: normal inspection. Absent: tenderness, meningismus Respiratory exam: Present: normal lung sounds bilaterally, other (Sternotomy scar, well healing). Absent: respiratory distress, wheezes, chest wall tenderness Cardiovascular Exam: Present: regular rate, normal rhythm GI/Abdominal exam: Present: soft. Absent: distended, tenderness, guarding Extremities exam: Present: normal inspection, normal capillary refill. Absent: pedal edema, calf tenderness Neurological exam: Present: alert, oriented X3, CN II-XII intact. Absent: motor sensory deficit Psychiatric exam: Present: normal affect, normal mood Skin exam: Present: warm, dry, intact. Absent: cyanosis, diaphoretic Course Vital Signs 06/25/18 06/25/18 11:46 13:00 Temperature 97.7 F Pulse Rate 76 65 Respiratory 18 18 Rate Blood Pressure 109/72 103/84 O2 Sat by Pulse 96 98 Oximetry EKG Findings - EKG Comments: EKG Findings:: EKG: Normal sinus rhythm, T-wave flattening in the precordial leads, no ST segment elevation, rate of 67, [place] interval 158, QRS duration 88, QTC 420 Medical Decision Making - Medical Decision Making 53-year-old male presenting with chest pain, he is 2 months status post triple- vessel bypass. Patient was urged by bee keeper to present to the emergency department. His pain is atypical, nonexertional. Workup in the emergency department reveals normal chest x-ray, EKG does show some flattening of the T waves in the precordial leads and T-wave inversion in aVL, this is unchanged compared to EKG 04/18/2018. No ST segment elevation. Patient has normal CBC, normal CMP, negative initial troponin. He will be kept in observation for serial cardiac enzymes, telemetry, cardiology consultation. - Lab Data Result diagrams: 06/25/18 12:17 06/25/18 12:17 Lab Results 06/25/18 06/25/18 06/25/18 Range/Units 12:17 12:17 12:17 WBC (3.8-10.6) k/uL RBC (4.30-5.90) m/uL Hgb (13.0-17.5) gm/dL Hct (39.0-53.0) % MCV (80.0-100.0) fL MCH (25.0-35.0) pg MCHC (31.0-37.0) g/dL RDW (11.5-15.5) % Plt Count (150-450) k/uL Neutrophils % % Lymphocytes % % Monocytes % % Eosinophils % % Basophils % % Neutrophils # (1.3-7.7) k/uL Lymphocytes # (1.0-4.8) k/uL Monocytes # (0-1.0) k/uL Eosinophils # (0-0.7) k/uL Basophils # (0-0.2) k/uL PT 10.4 (9.0-12.0) sec INR 1.0 (<1.2) APTT 24.1 (22.0-30.0) sec Sodium 139 (137-145) mmol/L Potassium 4.5 (3.5-5.1) mmol/L Chloride 107 (98-107) mmol/L Carbon Dioxide 24 (22-30) mmol/L Anion Gap 8 mmol/L BUN 16 (9-20) mg/dL Creatinine 0.84 (0.66-1.25) mg/dL Est GFR (CKD-EPI)AfAm >90 (>60 ml/min/1.73 sqM) Est GFR (CKD-EPI)NonAf >90 (>60 ml/min/1.73 sqM) Glucose 188 H (74-99) mg/dL Calcium 9.9 (8.4-10.2) mg/dL Magnesium 1.9 (1.6-2.3) mg/dL Total Bilirubin 0.4 (0.2-1.3) mg/dL AST 21 (17-59) U/L ALT 32 (21-72) U/L Alkaline Phosphatase 75 (38-126) U/L Total Creatine Kinase (55-170) U/L CK-MB (CK-2) (0.0-2.4) ng/mL CK-MB (CK-2) Rel Index Troponin I (0.000-0.034) ng/mL NT-Pro-B Natriuret Pep 171 pg/mL Total Protein 6.6 (6.3-8.2) g/dL Albumin 3.8 (3.5-5.0) g/dL 06/25/18 06/25/18 Range/Units 12:17 12:17 WBC 9.1 (3.8-10.6) k/uL RBC 5.08 (4.30-5.90) m/uL Hgb 14.8 (13.0-17.5) gm/dL Hct 43.8 (39.0-53.0) % MCV 86.3 (80.0-100.0) fL MCH 29.2 (25.0-35.0) pg MCHC 33.8 (31.0-37.0) g/dL RDW 13.3 (11.5-15.5) % Plt Count 247 (150-450) k/uL Neutrophils % 72 % Lymphocytes % 20 % Monocytes % 4 % Eosinophils % 3 % Basophils % 1 % Neutrophils # 6.6 (1.3-7.7) k/uL Lymphocytes # 1.8 (1.0-4.8) k/uL Monocytes # 0.4 (0-1.0) k/uL Eosinophils # 0.2 (0-0.7) k/uL Basophils # 0.1 (0-0.2) k/uL PT (9.0-12.0) sec INR (<1.2) APTT (22.0-30.0) sec Sodium (137-145) mmol/L Potassium (3.5-5.1) mmol/L Chloride (98-107) mmol/L Carbon Dioxide (22-30) mmol/L Anion Gap mmol/L BUN (9-20) mg/dL Creatinine (0.66-1.25) mg/dL Est GFR (CKD-EPI)AfAm (>60 ml/min/1.73 sqM) Est GFR (CKD-EPI)NonAf (>60 ml/min/1.73 sqM) Glucose (74-99) mg/dL Calcium (8.4-10.2) mg/dL Magnesium (1.6-2.3) mg/dL Total Bilirubin (0.2-1.3) mg/dL AST (17-59) U/L ALT (21-72) U/L Alkaline Phosphatase (38-126) U/L Total Creatine Kinase 57 (55-170) U/L CK-MB (CK-2) 0.9 (0.0-2.4) ng/mL CK-MB (CK-2) Rel Index 1.6 Troponin I <0.012 (0.000-0.034) ng/mL NT-Pro-B Natriuret Pep pg/mL Total Protein (6.3-8.2) g/dL Albumin (3.5-5.0) g/dL Disposition Clinical Impression: Chest pain Disposition: ADMITTED IP TO THIS [facility] Condition: Stable Is patient prescribed a controlled substance at d/c from ED?: No Referrals: Brandon Cervantes MD [Primary Care Provider] - 1-2 days Decision to Admit Reason: Admit from EC Decision Date: 06/25/18 Decision Time: 14:34
[2018-06-25 12:48] LABS: Basophils # (A) 0.1 k/uL (0-0.2); Basophils % (A) 1 %; Eosinophils # (A) 0.2 k/uL (0-0.7); Eosinophils % (A) 3 %; HCT 43.8 % (39.0-53.0); HGB 14.8 gm/dL (13.0-17.5); Lymphocytes # (A) 1.8 k/uL (1.0-4.8); Lymphocytes % (A) 20 %; MCH 29.2 pg (25.0-35.0); MCHC 33.8 g/dL (31.0-37.0); MCV 86.3 fL (80.0-100.0); Mean Platelet Volume 6.9; Monocytes # (A) 0.4 k/uL (0-1.0); Monocytes % (A) 4 %; Neutrophils # (A) 6.6 k/uL (1.3-7.7); Neutrophils % (A) 72 %; Platelet Count 247 k/uL (150-450); RBC 5.08 m/uL (4.30-5.90); RDW 13.3 % (11.5-15.5); WBC 9.1 k/uL (3.8-10.6)
[2018-06-25 12:53] LABS: ALT 32 U/L (21-72); AST 21 U/L (17-59); Albumin 3.8 g/dL (3.5-5.0); Alkaline Phosphatase 75 U/L (38-126); Anion Gap 8 mmol/L; Blood Urea Nitrogen 16 mg/dL (9-20); Calcium 9.9 mg/dL (8.4-10.2); Carbon Dioxide 24 mmol/L (22-30); Chloride 107 mmol/L (98-107); Glucose 188 mg/dL (74-99); Magnesium 1.9 mg/dL (1.6-2.3); Potassium 4.5 mmol/L (3.5-5.1); Sodium 139 mmol/L (137-145); Total Bilirubin 0.4 mg/dL (0.2-1.3); Total Protein 6.6 g/dL (6.3-8.2)
[2018-06-25 12:56] LABS: Partial Thromboplastin Time 24.1 sec (22.0-30.0); Prothrombin Time 10.4 sec (9.0-12.0)
[2018-06-25 12:58] LABS: Creatine Kinase 57 U/L (55-170)
--- NOTE | 2018-06-25 13:00 | XR ---
EXAMINATION TYPE: XR chest 2V DATE OF EXAM: 06/25/2018 COMPARISON: 04/23/2018 INDICATION: Chest pain TECHNIQUE: Frontal and lateral views of the chest are obtained. FINDINGS: The heart size is normal. The pulmonary vasculature is normal. The lungs are clear. IMPRESSION: 1. No acute pulmonary process.
[2018-06-25 13:11] LABS: Creatine Kinase MB 0.9 ng/mL (0.0-2.4); Troponin I <0.012 ng/mL (0.000-0.034)
[2018-06-25] MEDS ORDERED: NITROGLYCERIN SL TABS 0.4 MG TAB SUBLINGUAL PRN (14:29)
[2018-06-25] MEDS ORDERED: ASPIRIN 325 MG TAB PO STA (14:29)
[2018-06-25] MEDS ORDERED: ONDANSETRON 4 MG/2 ML VIAL IVP PRN (14:30)
[2018-06-25] MEDS ORDERED: NALOXONE 0.4 MG/ML 1 ML VIAL IV PRN (14:30)
[2018-06-25] MEDS: MORPHINE SULFATE 4 MG/ML SYRINGE IV PRN ×2 (17:50→21:58)
[2018-06-25 18:04] LABS: Creatine Kinase 54 U/L (55-170)
[2018-06-25 18:17] LABS: Creatine Kinase MB 0.8 ng/mL (0.0-2.4); Troponin I <0.012 ng/mL (0.000-0.034)
[2018-06-25 20:55] LABS: Glucose,Whole Blood 261 mg/dL (75-99)
[2018-06-25] MEDS: METOPROLOL TARTRATE 25 MG TAB PO SCH (20:56)
[2018-06-25] MEDS ORDERED: INSULIN DETEMIR 100 UNIT/ML 10 ML VIAL SQ SCH (21:30)
[2018-06-25] MEDS: INSULIN ASPART 100 UNIT/ML 1 ML 10 ML VIAL SQ SCH (22:01)
[2018-06-26 00:31] LABS: Creatine Kinase 48 U/L (55-170)
[2018-06-26 00:45] LABS: Creatine Kinase MB 0.9 ng/mL (0.0-2.4); Troponin I <0.012 ng/mL (0.000-0.034)
[2018-06-26] MEDS: ACETAMINOPHEN TAB 500 MG TAB PO SCH ×2 (06:11→12:41)
[2018-06-26 06:54] LABS: Glucose,Whole Blood 179 mg/dL (75-99)
[2018-06-26] MEDS: METOPROLOL TARTRATE 25 MG TAB PO SCH (08:40)
[2018-06-26] MEDS: INSULIN ASPART 100 UNIT/ML 1 ML 10 ML VIAL SQ SCH ×4 (08:44→12:40)
[2018-06-26 08:53] VITALS: RESP 16
[2018-06-26] MEDS ORDERED: ATORVASTATIN 80 MG TAB PO SCH (09:00)
[2018-06-26] MEDS ORDERED: CLOPIDOGREL 75 MG TAB PO SCH (09:00)
[2018-06-26] MEDS ORDERED: amLODIPine 5 MG TAB PO SCH (09:00)
[2018-06-26] MEDS ORDERED: ASPIRIN 325 MG TAB PO SCH (09:00)
[2018-06-26 11:45] LABS: Glucose,Whole Blood 133 mg/dL (75-99)
--- NOTE | 2018-06-26 12:29 | P.CRDCN ---
History of Present Illness History of present illness: This is Dr. Fonseca dictating a consult on this patient The patient was interviewed and examined by me IMPRESSION / ASSESSMENT: Known coronary artery disease multivessel, status post coronary artery bypass grafting in March 2018 Atypical chest discomfort at rest left precordial that has never left him since his surgery in March Patient is better when he walks PLAN: Patient may go home from a cardiac standpoint and follow Dr. Suh as scheduled within the next 2 weeks HPI 53-year-old male patient with left-sided chest discomfort recent coronary artery bypass grafting in March 2018 having daily episodes lasting 10-20 minutes without any associated diaphoresis nausea vomiting ROS: No fever chills or rigors, no cough, phlegm or expectoration, no nausea, vomiting or diarrhea, no hematuria, dysuria, no musculoskeletal complaints, no strokes or seizures, no skin lesions. EXAMINATION: On examination afebrile 98.3F pulse rate in the 60s and 70s respirations 18 and blood pressure 113/74 mmHg normal pulse ox Breath sounds are clear no rhonchi no crackles Heart sounds are normal normal S1 normal S2 Abdomen is soft nontender Extremities warm no edema REVIEW OF LABS, ECG & MEDICAL DATA Sinus rhythm 67 bpm normal [place] narrow QRS inverted T waves V4 V5 and V6 Home medications include amlodipine metoprolol lisinopril, atorvastatin 80 mg daily aspirin Normal hemoglobin 14.8 Normal electrolytes Normal troponins 3 Normal LFTs 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 gets combatative with aa Smoking Status: Former smoker - Past Family History Father Family Medical History: Coronary Artery Disease (CAD), Hyperlipidemia, Hypertension Mother Family Medical History: Cancer Additional Family Medical History / Comment(s): ovarian cancer Brother(s) History Unknown: Yes Sister(s) History Unknown: Yes Daughter(s) Family Medical History: Neurologic Disorder Son(s) Family Medical History: Neurologic Disorder Medications and Allergies Home Medications Medication Instructions Recorded Confirmed Type RX: Cinnamon Bark [Cinnamon] 1,000 mg PO QAM 04/11/18 06/25/18 History RX: Cyanocobalamin (Vitamin B-12) 1,000 mcg PO QAM 04/11/18 06/25/18 History [Vitamin B-12] RX: Fluticasone/Vilanterol [Breo 1 puff INHALATION RT-DAILY 04/11/18 06/25/18 History Ellipta 100-25 Mcg Inhaler] RX: Loratadine [Claritin] 10 mg PO QAM 04/11/18 06/25/18 History RX: Montelukast [Singulair] 10 mg PO QAM 04/11/18 06/25/18 History RX: Tamsulosin HCl [Flomax] 0.4 mg PO QAM 04/11/18 06/25/18 History Insulin Detemir [Levemir Flextouch] 25 unit SQ HS #5 insuln.pen 04/23/18 Rx Insulin Lispro [humaLOG Kwikpen] 15 unit SQ AC-TID #5 insuln.pen 04/23/18 Rx RX: Aspirin 325 mg PO DAILY #30 tab 04/23/18 06/25/18 Rx RX: Atorvastatin [Lipitor] 80 mg PO DAILY #30 tab 04/23/18 06/25/18 Rx RX: Clopidogrel [Plavix] 75 mg PO DAILY #30 tab 04/23/18 06/25/18 Rx RX: Pantoprazole [Protonix] 40 mg PO AC-BRKFST #30 tablet.dr 04/23/18 06/25/18 Rx Acetaminophen [Tylenol Extra 1,000 mg PO QID PRN 06/25/18 06/25/18 History Strength] Arginine Oxoglurate [l-Arginine] 350 mg PO DAILY 06/25/18 06/25/18 History Calcium/Magnesium 3 tab PO DAILY 06/25/18 06/25/18 History Cranberry Fruit Concentrate 450 mg PO DAILY 06/25/18 06/25/18 History [Cranberry] Diclofenac Sodium Gel [Voltaren 2 gm TOPICAL QID 06/25/18 06/25/18 History Gel] RX: Lisinopril [Zestril] 2.5 mg PO DAILY 06/25/18 06/25/18 History RX: Metoprolol Tartrate [Lopressor] 25 mg PO BID 06/25/18 06/25/18 History RX: amLODIPine [Norvasc] 5 mg PO DAILY 06/25/18 06/25/18 History Allergies Allergy/AdvReac Type Severity Reaction Status Date / Time No Known Allergies Allergy Verified 06/25/18 20:08 Physical Exam Vitals: Vital Signs Temp Pulse Pulse Resp BP BP Pulse Ox 06/26/18 04:00 98.3 F 77 18 113/74 98 06/26/18 00:00 97.7 F 61 18 115/76 95 06/25/18 20:00 18 06/25/18 19:17 97.7 F 65 18 103/84 98 06/25/18 19:15 97.4 F L 68 18 133/85 94 L 06/25/18 13:00 65 18 103/84 98 06/25/18 11:46 97.7 F 76 18 109/72 96 Intake and Output 06/25/18 06/26/18 06/26/18 22:59 06:59 14:59 Other: Voiding Method Toilet Toilet # Voids 1 2 Results 06/25/18 12:17 06/25/18 12:17 Cardiac Enzymes 06/25/18 06/25/18 06/25/18 Range/Units 12:17 12:17 17:29 AST 21 (17-59) U/L CK-MB (CK-2) 0.9 0.8 (0.0-2.4) ng/mL Troponin I <0.012 <0.012 (0.000-0.034) ng/mL 06/25/18 Range/Units 23:34 AST (17-59) U/L CK-MB (CK-2) 0.9 (0.0-2.4) ng/mL Troponin I <0.012 (0.000-0.034) ng/mL Coagulation 06/25/18 Range/Units 12:17 PT 10.4 (9.0-12.0) sec APTT 24.1 (22.0-30.0) sec CBC 06/25/18 Range/Units 12:17 WBC 9.1 (3.8-10.6) k/uL RBC 5.08 (4.30-5.90) m/uL Hgb 14.8 (13.0-17.5) gm/dL Hct 43.8 (39.0-53.0) % Plt Count 247 (150-450) k/uL Comprehensive Metabolic Panel 06/25/18 Range/Units 12:17 Sodium 139 (137-145) mmol/L Potassium 4.5 (3.5-5.1) mmol/L Chloride 107 (98-107) mmol/L Carbon Dioxide 24 (22-30) mmol/L BUN 16 (9-20) mg/dL Creatinine 0.84 (0.66-1.25) mg/dL Glucose 188 H (74-99) mg/dL Calcium 9.9 (8.4-10.2) mg/dL AST 21 (17-59) U/L ALT 32 (21-72) U/L Alkaline Phosphatase 75 (38-126) U/L Total Protein 6.6 (6.3-8.2) g/dL Albumin 3.8 (3.5-5.0) g/dL Current Medications Generic Name Dose Route Start Last Admin Trade Name Freq PRN Reason Stop Dose Admin Acetaminophen 1,000 mg 06/26/18 09:00 06/26/18 06:11 Tylenol Tab PO 1,000 mg QID BECKA Administration Amlodipine Besylate 5 mg 06/26/18 09:00 Norvasc PO DAILY [facility] Aspirin 325 mg 06/26/18 09:00 Aspirin PO DAILY [facility] Atorvastatin Calcium 80 mg 06/26/18 09:00 Lipitor PO DAILY [facility] Clopidogrel Bisulfate 75 mg 06/26/18 09:00 Plavix PO DAILY [facility] Insulin Aspart 10 unit 06/26/18 07:30 Novolog SQ AC-TID [facility] Insulin Aspart 0 unit 06/25/18 21:30 06/25/18 22:01 Novolog SQ 4 unit ACHS [facility] Administration Protocol Insulin Detemir 25 unit 06/25/18 21:30 06/25/18 22:01 Levemir SQ 25 unit HS [facility] Administration Metoprolol Tartrate 25 mg 06/25/18 21:00 06/25/18 20:56 Lopressor PO 25 mg BID BECKA Administration Morphine Sulfate 4 mg 06/25/18 14:30 06/25/18 21:58 Morphine Sulfate (Inj) IV 4 mg Q4HR PRN Administration Severe Pain Naloxone HCl 0.2 mg 06/25/18 14:30 Narcan IV Q2M PRN Opioid Reversal Nitroglycerin 0.4 mg 06/25/18 14:29 Nitrostat SUBLINGUAL Q5M PRN Chest Pain Ondansetron HCl 4 mg 06/25/18 14:30 Zofran IVP Q8HR PRN Nausea And Vomiting Intake and Output 06/25/18 06/26/18 06/26/18 22:59 06:59 14:59 Other: Voiding Method Toilet Toilet # Voids 1 2 06/25/18 12:17 06/25/18 12:17
[2018-06-26 12:48] VITALS: BP 109/77; PULSE 65; TEMP 98.3
--- NOTE | 2018-06-26 13:09 | P.HPIM ---
History of Present Illness H&P Date: 06/26/18 Chief Complaint: Chest pain This is 53 years old male with past apical history significant for recent CABG back in March 2018 presents to the emergency department with new onset chest pain. According to the patient it has been coming back and forth for the last 24 hours where it attack symptom for 10-15 minutes when patient on rest and improves with walking patient denied any nausea vomiting or diaphoresis denied any shortness of breath or exertional dyspnea. Patient stated that he's been complaint with his medication since his surgery back in March 2018. Patient denied any recent upper respiratory infection, abdominal pain, nausea, vomiting , dysuria or recent weight loss. Patient denied fever or chills. 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 gets combatative with aa Smoking Status: Former smoker - Past Family History Father Family Medical History: Coronary Artery Disease (CAD), Hyperlipidemia, Hypertension Mother Family Medical History: Cancer Additional Family Medical History / Comment(s): ovarian cancer Brother(s) History Unknown: Yes Sister(s) History Unknown: Yes Daughter(s) Family Medical History: Neurologic Disorder Son(s) Family Medical History: Neurologic Disorder Medications and Allergies Home Medications Medication Instructions Recorded Confirmed Type Cinnamon Bark [Cinnamon] 1,000 mg PO QAM 04/11/18 06/25/18 History Cyanocobalamin (Vitamin B-12) 1,000 mcg PO QAM 04/11/18 06/25/18 History [Vitamin B-12] Fluticasone/Vilanterol [Breo 1 puff INHALATION RT-DAILY 04/11/18 06/25/18 History Ellipta 100-25 Mcg Inhaler] Loratadine [Claritin] 10 mg PO QAM 04/11/18 06/25/18 History Montelukast [Singulair] 10 mg PO QAM 04/11/18 06/25/18 History Tamsulosin HCl [Flomax] 0.4 mg PO QAM 04/11/18 06/25/18 History Aspirin 325 mg PO DAILY #30 tab 04/23/18 06/25/18 Rx Atorvastatin [Lipitor] 80 mg PO DAILY #30 tab 04/23/18 06/25/18 Rx Clopidogrel [Plavix] 75 mg PO DAILY #30 tab 04/23/18 06/25/18 Rx Insulin Detemir [Levemir Flextouch] 25 unit SQ HS #5 insuln.pen 04/23/18 Rx Insulin Lispro [humaLOG Kwikpen] 15 unit SQ AC-TID #5 insuln.pen 04/23/18 Rx Pantoprazole [Protonix] 40 mg PO AC-BRKFST #30 tablet.dr 04/23/18 06/25/18 Rx Acetaminophen [Tylenol Extra 1,000 mg PO QID PRN 06/25/18 06/25/18 History Strength] Arginine Oxoglurate [l-Arginine] 350 mg PO DAILY 06/25/18 06/25/18 History Calcium/Magnesium 3 tab PO DAILY 06/25/18 06/25/18 History Cranberry Fruit Concentrate 450 mg PO DAILY 06/25/18 06/25/18 History [Cranberry] Diclofenac Sodium Gel [Voltaren 2 gm TOPICAL QID 06/25/18 06/25/18 History Gel] Lisinopril [Zestril] 2.5 mg PO DAILY 06/25/18 06/25/18 History Metoprolol Tartrate [Lopressor] 25 mg PO BID 06/25/18 06/25/18 History amLODIPine [Norvasc] 5 mg PO DAILY 06/25/18 06/25/18 History Allergies Allergy/AdvReac Type Severity Reaction Status Date / Time No Known Allergies Allergy Verified 06/25/18 20:08 Physical Exam Vitals: Vital Signs Temp Pulse Pulse Pulse Resp BP BP 06/26/18 12:00 98.3 F 65 16 109/77 06/26/18 08:00 97.7 F 67 16 120/81 06/26/18 04:00 98.3 F 77 18 113/74 06/26/18 00:00 97.7 F 61 18 115/76 06/25/18 20:00 18 06/25/18 19:17 97.7 F 65 18 103/84 06/25/18 19:15 97.4 F L 68 18 133/85 Pulse Ox 06/26/18 12:00 97 06/26/18 08:00 98 06/26/18 04:00 98 06/26/18 00:00 95 06/25/18 20:00 06/25/18 19:17 98 06/25/18 19:15 94 L Intake and Output 06/25/18 06/26/18 06/26/18 22:59 06:59 14:59 Other: Voiding Method Toilet Toilet Toilet # Voids 1 2 Gen.: in stated age, no acute distress Heart: Normal S1-S2 Lungs: Clear to auscultation bilaterally Abdomen: Soft, no tenderness, positive bowel sounds in all 4 quadrant no guarding or rebound Skin: No new rash Psych: Alert and oriented 3 Neuro: No focal deficit Results CBC & Chem 7: 06/25/18 12:17 06/25/18 12:17 Labs: Abnormal Lab Results - Last 24 Hours (Table) 06/25/18 06/25/18 06/25/18 Range/Units 17:29 20:53 23:34 POC Glucose (mg/dL) 261 H (75-99) mg/dL Total Creatine Kinase 54 L 48 L (55-170) U/L 06/26/18 06/26/18 Range/Units 06:52 11:44 POC Glucose (mg/dL) 179 H 133 H (75-99) mg/dL Total Creatine Kinase (55-170) U/L Thrombosis Risk Factor Assmnt - Choose All That Apply Any of the Below Risk Factors Present?: Yes Each Factor Represents 1 point: Abnormal pulmonary function (COPD), Age 41-60 years, Obesity (BMI >25) Other Risk Factors: No Other congenital or acquired thrombophilia - If yes, enter type in comment: No Thrombosis Risk Factor Assessment Total Risk Factor Score: 3 Thrombosis Risk Factor Assessment Level: Moderate Risk Assessment and Plan Assessment: 1. Atypical chest pain likely musculoskeletal in nature. 2. Recent CABG in March 2018. 3. Coronary artery disease area 4. Uncontrolled diabetes mellitus area 5. Hypertension. 6. Hyperlipidemia. 7. COPD. 8. Benign prostatic hypertrophy. Plan discussed with patient and his at the bedside where I would like to continue current home medication on discharge have patient's follow-up with his primary care physician in 2-3 days and with strainer mill operator in 10 days as scheduled patient was evaluated by cardiology who felt that the patient is stable from the cardiac standpoint and can be discharged to follow-up with the cardiology as mentioned above. Patient and his eager to go and would like to follow-up with PCP regarding diabetes management. Patient was discharged in stable condition
--- NOTE | 2018-06-26 13:09 | P.DS ---
Providers Date of admission: 06/25/18 14:30 Attending physician: Antonella Juan Consults: 06/25/18 14:30 Consult Physician Routine Consulting Provider: Cb Suh Consult Reason/Comments: CP Do you want consulting provider notified?: Yes Primary care physician: Brandon Cervantes [facility] Course: 1. Atypical chest pain likely musculoskeletal in nature. 2. Recent CABG in March 2018. 3. Coronary artery disease area 4. Uncontrolled diabetes mellitus area 5. Hypertension. 6. Hyperlipidemia. 7. COPD. 8. Benign prostatic hypertrophy. Plan discussed with patient and his at the bedside where I would like to continue current home medication on discharge have patient's follow-up with his primary care physician in 2-3 days and with warper creeler in 10 days as scheduled patient was evaluated by cardiology who felt that the patient is stable from the cardiac standpoint and can be discharged to follow-up with the cardiology as mentioned above. Patient and his eager to go and would like to follow-up with PCP regarding diabetes management. Patient was discharged in stable condition Patient Condition at Discharge: Stable Plan - Discharge Summary Discharge Rx Participant: No New Discharge Prescriptions: No Action Loratadine [Claritin] 10 mg PO QAM Fluticasone/Vilanterol [Breo Ellipta 100-25 Mcg Inhaler] 1 puff INHALATION RT -DAILY Montelukast [Singulair] 10 mg PO QAM Tamsulosin HCl [Flomax] 0.4 mg PO QAM Cyanocobalamin (Vitamin B-12) [Vitamin B-12] 1,000 mcg PO QAM Cinnamon Bark [Cinnamon] 1,000 mg PO QAM Aspirin 325 mg PO DAILY #30 tab Atorvastatin [Lipitor] 80 mg PO DAILY #30 tab Clopidogrel [Plavix] 75 mg PO DAILY #30 tab Pantoprazole [Protonix] 40 mg PO AC-BRKFST #30 tablet.dr Insulin Detemir [Levemir Flextouch] 25 unit SQ HS #5 insuln.pen Insulin Lispro [humaLOG Kwikpen] 15 unit SQ AC-TID #5 insuln.pen Cranberry Fruit Concentrate [Cranberry] 450 mg PO DAILY Arginine Oxoglurate [l-Arginine] 350 mg PO DAILY Acetaminophen [Tylenol Extra Strength] 1,000 mg PO QID PRN PRN Reason: Pain Diclofenac Sodium Gel [Voltaren Gel] 2 gm TOPICAL QID Metoprolol Tartrate [Lopressor] 25 mg PO BID Lisinopril [Zestril] 2.5 mg PO DAILY amLODIPine [Norvasc] 5 mg PO DAILY Calcium/Magnesium 3 tab PO DAILY Discharge Medication List Cinnamon Bark [Cinnamon] 1,000 mg PO QAM 04/11/18 [History] Cyanocobalamin (Vitamin B-12) [Vitamin B-12] 1,000 mcg PO QAM 04/11/18 [History] Fluticasone/Vilanterol [Breo Ellipta 100-25 Mcg Inhaler] 1 puff INHALATION RT- DAILY 04/11/18 [History] Loratadine [Claritin] 10 mg PO QAM 04/11/18 [History] Montelukast [Singulair] 10 mg PO QAM 04/11/18 [History] Tamsulosin HCl [Flomax] 0.4 mg PO QAM 04/11/18 [History] Aspirin 325 mg PO DAILY #30 tab 04/23/18 [Rx] Atorvastatin [Lipitor] 80 mg PO DAILY #30 tab 04/23/18 [Rx] Clopidogrel [Plavix] 75 mg PO DAILY #30 tab 04/23/18 [Rx] Insulin Detemir [Levemir Flextouch] 25 unit SQ HS #5 insuln.pen 04/23/18 [Rx] Insulin Lispro [humaLOG Kwikpen] 15 unit SQ AC-TID #5 insuln.pen 04/23/18 [Rx] Pantoprazole [Protonix] 40 mg PO AC-BRKFST #30 tablet.dr 04/23/18 [Rx] Acetaminophen [Tylenol Extra Strength] 1,000 mg PO QID PRN 06/25/18 [History] Arginine Oxoglurate [l-Arginine] 350 mg PO DAILY 06/25/18 [History] Calcium/Magnesium 3 tab PO DAILY 06/25/18 [History] Cranberry Fruit Concentrate [Cranberry] 450 mg PO DAILY 06/25/18 [History] Diclofenac Sodium Gel [Voltaren Gel] 2 gm TOPICAL QID 06/25/18 [History] Lisinopril [Zestril] 2.5 mg PO DAILY 06/25/18 [History] Metoprolol Tartrate [Lopressor] 25 mg PO BID 06/25/18 [History] amLODIPine [Norvasc] 5 mg PO DAILY 06/25/18 [History] Follow up Appointment(s)/Referral(s): Cb Suh MD [STAFF PHYSICIAN] - 1 Week (Pt states he already has a follow up appointment with Dr. Arvizu in 1.5 weeks. Office closed.) Brandon Cervantes MD [Primary Care Provider] - 1-2 days Patient Instructions/Handouts: Chest Pain (DC) Discharge Disposition: HOME SELF-CARE
[2018-06-27 11:21] LABS: Hemoglobin A1C 8.5 % (4.0-6.0)
== END 2018-06-26 12:20 | disposition home or self-care (01) ==
LOC: EC 11:41 → 1SOBS 14:30
PROVIDERS: ADMIT Internal Medicine; ATTEND Internal Medicine
DX: R07.89 Other chest pain (principal); J44.9 Chronic obstructive pulmonary disease, unspecified; N40.0 Benign prostatic hyperplasia without lower urinary tract symptoms; I25.10 Atherosclerotic heart disease of native coronary artery without angina pectoris; E78.5 Hyperlipidemia, unspecified; E11.9 Type 2 diabetes mellitus without complications; I10 Essential (primary) hypertension; Z87.891 Personal history of nicotine dependence; Z95.1 Presence of aortocoronary bypass graft; Z79.82 Long term (current) use of aspirin; Z79.02 Long term (current) use of antithrombotics/antiplatelets; Z79.4 Long term (current) use of insulin; Z79.51 Long term (current) use of inhaled steroids; Z79.899 Other long term (current) drug therapy; Z80.41 Family history of malignant neoplasm of ovary; Z82.49 Family history of ischemic heart disease and other diseases of the circulatory system; Z87.442 Personal history of urinary calculi; Z77.090 Contact with and (suspected) exposure to asbestos
CPT/HCPCS: 96376; 96374; 99285; 36415; 93005; 83880; 80053; 82550; 82553; 83735; 84484; 85025; 85610; 85730; 83036; 71046; G0378 ×2; J2270

== ENCOUNTER → 2018-07-03 | Outpatient (CLI) | payer OTHER ==
--- NOTE | 2018-07-04 16:19 | MR ---
EXAMINATION TYPE: MR brain wo/w con DATE OF EXAM: 07/03/2018 COMPARISON: NONE HISTORY: Brain tumor per order. Parkinson's disease with left-sided hearing loss per patient. TECHNIQUE: Multiplanar, multisequence images of the brain and brainstem is performed without and with IV contras t, utilizing 7.5 mL intravenous Gadavist . FINDINGS: Diffusion weighted images demonstrate no evidence of a recent infarct or other diffusion ab normality. There is no worrisome extra-axial fluid collection. The ventricular system and cisternal spaces are normal in size and appearance. The brain volume is age appropriate. There are scattered small foci of T2 hyperintensity seen throughout the white matter bilaterally. Approximately 15 scatte red lesions are seen. Lesions are most likely on basis of product of chronic small vessel ischemic ch amada in patient of this age. Midline structures demonstrate normal morphology. The craniocervical junction appears within normal limits. Post contrast images demonstrate no abnormal enhancement. The dural venous sinuses appear pa tent. The visualized sinuses are clear and the globes are intact. IMPRESSION: Mild chronic small vessel ischemic change. No suspicious enhancing masses.
== END ==
LOC: RADMRIMAIN 13:46
PROVIDERS: ATTEND Psychiatry & Neurology Neurology
DX: D49.6 Neoplasm of unspecified behavior of brain (principal); I67.82 Cerebral ischemia
CPT/HCPCS: 70553; A9585

== ENCOUNTER → 2018-07-20 | Outpatient (CLI) | payer OTHER ==
--- NOTE | 2018-07-22 11:23 | NM ---
EXAMINATION TYPE: NM DatScan Brain SPECT DATE OF EXAM: 07/20/2018 COMPARISON: Correlation MRI brain 07/03/2018 HISTORY: 53-year-old male Parkinson's disease TECHNIQUE: 10 drops of Lugol's solution was administered 1 hour prior to injection as a thyroid bloc geena agent. After the administration of 4.15 mCi I-123 Ioflupane DaTscan. Images obtained 3.5 hours post injection. SPECT images of the brain were acquired with axial and coronal reconstructions. FINDINGS: The axial SPECT images demonstrate normal background activity. Accounting for head tilt, there is sl ightly blunted comma-shaped appearance of the right corpus striatum. IMPRESSION: Slightly blunted striatal activity on the right may indicate early changes of idiopathic Parkinson's disease or Parkinsonian syndrome.
== END ==
LOC: RADNMMAIN 10:53
PROVIDERS: ATTEND Psychiatry & Neurology Neurology
DX: G20 Parkinson's disease (principal)
CPT/HCPCS: 78607; A9584

== ENCOUNTER → 2019-05-31 | Outpatient (CLI) | payer OTHER ==
--- NOTE | 2019-06-01 03:24 | MR ---
EXAMINATION TYPE: MR brain wo/w con DATE OF EXAM: 05/31/2019 COMPARISON: 07/03/2018 HISTORY: memory loss, compare to prior TECHNIQUE: Multiplanar, multisequence images of the brain and brainstem is performed without and with IV contras t, utilizing 7.5 mL intravenous Gadavist . FINDINGS: Ventricles have normal size. There is no mass effect nor midline shift. There is no sign of intracranial hemorrhage. Corpus callosum appears fairly normal. Brainstem is intact. Sella turcica a ppears normal. On the FLAIR and T2 images there are scattered white matter small high signal foci that measure up to 4 mm in the stewart-white matter junction of both cerebral hemispheres. Total number is approximately 1 5. There is no evidence of cortical infarct. The contrast images show no pathologic enhancement. Ther e is normal contrast enhancement of the venous sinuses. IMPRESSION: There are scattered tiny white matter high signal foci as above are nonspecific and could relate to minimal chronic small vessel ischemia. No significant change compared to old exam.
== END | disposition home or self-care (01) ==
LOC: RADMRIMAIN 18:28
PROVIDERS: ATTEND Psychiatry & Neurology Neurology
DX: R90.89 Other abnormal findings on diagnostic imaging of central nervous system (principal); G45.2 Multiple and bilateral precerebral artery syndromes
CPT/HCPCS: 70553; A9585

== ENCOUNTER → 2019-06-04 | Outpatient (CLI) | payer OTHER ==
[~2019-06-04] MED LIST changes: -ALPRAZolam 0.25 MG TAB PO PRN; -ALPRAZolam 0.5 MG TAB PO PRN; -ASPIRIN 325 MG TAB PO STA; -ATORVASTATIN 80 MG TAB PO STA; +IODINE/POTASS IOD (LUGOLS) 8 ML BTL TOPICAL ONE; -NITROGLYCERIN SL TABS 0.4 MG TAB SUBLINGUAL PRN; -SODIUM CHLORIDE 0.9% 1,000 ML in EMPTY BAG 1 BAG IV ONE
--- NOTE | 2019-06-05 12:41 | NM ---
EXAMINATION TYPE: NM DatScan Brain SPECT DATE OF EXAM: 06/04/2019 COMPARISON: 07/20/2018 HISTORY: G 20.0 tremors TECHNIQUE: 10 drops of Lugol's solution was administered 1 hour prior to injection as a thyroid bloc geena agent. After the administration of 4.04 mCi I-123 Ioflupane DaTscan. Images obtained 3 hours p ost injection. SPECT images of the brain were acquired with axial and coronal reconstructions. FINDINGS: The corpus striatum bilaterally demonstrate a weakened comma shape, right more blunted than the left. This has progressed from the prior exam without abdominal background uptake. IMPRESSION: Progressed abnormal activity in the now bilateral corpus striatum (right greater than left). Findings are suggestive of idiopathic Parkinson's disease or Parkinsonian syndrome.
== END | disposition home or self-care (01) ==
LOC: RADNMMAIN 11:37
PROVIDERS: ATTEND Psychiatry & Neurology Neurology
DX: R93.0 Abnormal findings on diagnostic imaging of skull and head, not elsewhere classified (principal)
CPT/HCPCS: 78607; A9584

== ENCOUNTER 2020-05-01 06:18 | Day surgery (SDC) | payer OTHER ==
[2020-04-29 12:43] VITALS: BMI 34.9
[~2020-05-01 06:18] MED LIST changes: +ALPRAZolam 0.25 MG TAB PO PRN; +ALPRAZolam 0.5 MG TAB PO PRN; +ASPIRIN 325 MG TAB PO STA; +ATORVASTATIN 80 MG TAB PO STA; -IODINE/POTASS IOD (LUGOLS) 8 ML BTL TOPICAL ONE; +NITROGLYCERIN SL TABS 0.4 MG TAB SUBLINGUAL PRN; +SODIUM CHLORIDE 0.9% 1,000 ML in EMPTY BAG 1 BAG IV ONE
[2020-05-01] MEDS ORDERED: SODIUM CHLORIDE 0.9% 1,000 ML IV ONE (06:51)
[2020-05-01 07:09] VITALS: RESP 16; TEMP 98.2
[2020-05-01 07:13] LABS: Glucose,Whole Blood 285 mg/dL (75-99)
[2020-05-01] MEDS ORDERED: INSULIN ASPART (NovoLOG) 100 UNIT/ML VIAL SQ ONE (07:15)
[2020-05-01] MEDS ORDERED: MIDAZOLAM 2 MG/2 ML VIAL IV ONE (07:54)
[2020-05-01] MEDS ORDERED: LIDOCAINE 1% INJ 10MG/ML (20 ML MDV) SQ ONE (07:57)
[2020-05-01] MEDS: fentaNYL (PF) 50 MCG/ML 2 ML AMP IV ONE ×2 (08:05→08:27)
[2020-05-01] MEDS ORDERED: IOPAMIDOL-370 125ML BTL INJ ONE (08:36)
[2020-05-01] MEDS ORDERED: NITROGLYCERIN 1000MCG/10ML SYRINGE INTRACORON ONE (08:36)
[2020-05-01] MEDS ORDERED: RX INFO: IV CONTRAST WAS GIVEN 1 EACH MISC MISCELLANE PRN ×2 (08:42→08:49)
[2020-05-01] MEDS ORDERED: SODIUM CHLORIDE 0.9% 1,000 ML IV SCH ×2 (08:45→09:00)
--- NOTE | 2020-05-01 09:48 | CC ---
CARDIAC CATHETERIZATION REPORT DATE OF SERVICE: May 01, 2020 PERFORMING PHYSICIAN: Cb Suh MD. PROCEDURE PERFORMED: 1. Right heart catheterization. 2. Left heart catheterization. 3. Selective left and right coronary angiogram. 4. CONNER to LAD angiogram. 5. Radial artery to OM angiogram. 6. SVG to RCA angiogram. INDICATION: This is a 55-year-old gentleman with coronary artery disease and prior coronary artery bypass grafting where he received CONNER to LAD and radial artery to OM and SVG to RCA, was experiencing increasing shortness of breath with exertion and symptoms concerning for severe underlying coronary artery disease reminded him with the symptoms before he underwent the open heart surgery. Beside that, he does have hypertension and dyslipidemia and chronic lung disease. APPROACH: Right common femoral artery and right common femoral vein. COMPLICATION: None. LEVEL OF SEDATION: Moderate with sedation length of 42 minutes. PROCEDURE DESCRIPTION: After obtaining informed consent, the patient was brought to the cardiac clinical genetics laboratory chief. The right common femoral artery was cannulated using micropuncture technique, the micropuncture wire passed easily. Then I placed a 6-Bangladeshi sheath at the right common femoral artery and 8-Bangladeshi sheath at the right common femoral vein. Right heart catheterization was performed using 6-Bang[place]ades[place] catheter which advanced through the venous sheath all the way to the right heart chambers including pulmonary capillary wedge position. The left heart catheterization was performed using the JR4 catheter which crossed the aortic valve. Selective left and right coronary angiogram performed using JL4 and JR4 catheters. CONNER to LAD angiogram was performed using the JR4 catheter. The radial artery to OM bypass angiogram was performed using an LCB. The SVG to RCA bypass angiogram was performed using a multi-purpose catheter. The procedure was completed without any complication. SELECTIVE CORONARY ANGIOGRAM: 1. The left main appeared to have a lesion in the range of 50% by the bifurcation into left circumflex and left anterior descending artery. 2. The left circumflex is a moderate caliber vessel with diffuse disease. The proximal left circumflex has a lesion appeared to be in the range of 80%. The mid left circumflex gives rise into an OM1 which has a tight lesion proximally. Then, competitive flow was seen in the distal OM coming from the radial artery bypass. The circumflex after that gives rise into an OM 2, which has mild disease only before the circumflex continues in the AV groove. 3. The LAD is a large caliber vessel. The proximal to mid LAD by the bifurcation of the diagonal branch appeared to have a lesion in the range of 80%. The mid LAD has another lesion in the range of 80% before we see competitive flow in the mid to distal LAD coming from the CONNER. 4. The right coronary artery is calcified with diffuse disease up to about 80-90 percent in the midportion. CORONARY BYPASSES ANGIOGRAM: 1. CONNER to LAD is patent. 2. The radial artery to OM is patent. OM itself distal to distal anastomosis has a lesion in the range of 60%. 3. The SVG to RCA is patent. HEMODYNAMICS: 1. Pulmonary capillary wedge pressure was 10 mmHg. 2. PA pressures were as follows: systolic 27 and diastolic of 9 and mean of 16 mmHg. 3. RV pressures were as follows: Systolic 31 and end-diastolic of 5 mmHg. 4. PA RA pressure was 10 mmHg. 5. Pulmonary capillary wedge pressure was 20 mmHg. CONCLUSION: 1. Normal right heart pressures. 2. Severe triple-vessel coronary artery disease. 3. Patent CONNER to LAD. 4. Patent radial artery bypass to OM. The OM itself after the radial artery anastomosis has a lesion appeared to be in the range of 60%. 5. Patent SVG to RCA. POSTPROCEDURE MANAGEMENT: Given the above anatomy, I recommend maximize medical treatment and follow up with the patient at [facility]. MMODL / IJN: [id number] /
[2020-05-01 12:50] VITALS: BP 180/91; PULSE 62
[2020-05-01] MEDS ORDERED: METOPROLOL TARTRATE 50 MG TAB PO ONE (13:00)
[2020-05-01] MEDS ORDERED: METOPROLOL TARTRATE 25 MG TAB PO ONE (13:00)
[2020-05-01] MEDS ORDERED: METOPROLOL TARTRATE 50 MG TAB PO SCH (16:00)
[2020-05-01] MEDS ORDERED: METOPROLOL TARTRATE 25 MG TAB PO SCH (22:00)
== END 2020-05-01 15:43 | disposition home or self-care (01) ==
LOC: CATHCVL 06:18
PROVIDERS: ATTEND Internal Medicine Interventional Cardiology
DX: I25.110 Atherosclerotic heart disease of native coronary artery with unstable angina pectoris (principal); R06.02 Shortness of breath; I10 Essential (primary) hypertension; E78.5 Hyperlipidemia, unspecified; F17.200 Nicotine dependence, unspecified, uncomplicated; I25.5 Ischemic cardiomyopathy; E78.00 Pure hypercholesterolemia, unspecified; J44.9 Chronic obstructive pulmonary disease, unspecified; G20 Parkinson's disease; F02.80 Dementia in other diseases classified elsewhere, unspecified severity, without behavioral disturbance, psychotic disturbance, mood disturbance, and anxiety; E11.9 Type 2 diabetes mellitus without complications; Z95.1 Presence of aortocoronary bypass graft; Z79.899 Other long term (current) drug therapy; Z79.1 Long term (current) use of non-steroidal anti-inflammatories (NSAID); Z79.4 Long term (current) use of insulin; Z79.51 Long term (current) use of inhaled steroids; Z79.82 Long term (current) use of aspirin; Z82.49 Family history of ischemic heart disease and other diseases of the circulatory system
CPT/HCPCS: 93461; C1751; C1894 ×2; C1769 ×2; J2250; J2001; J3010; Q9967

== ENCOUNTER → 2020-07-17 | Outpatient (CLI) | payer OTHER | END | disposition home or self-care (01) | LOC: RADNMMAIN 11:04 | PROVIDERS: ATTEND Psychiatry & Neurology Neurology | DX: Z53.9 Procedure and treatment not carried out, unspecified reason (principal) ==

== ENCOUNTER → 2020-07-21 | Outpatient (CLI) | payer OTHER ==
[~2020-07-21] MED LIST changes: -ALPRAZolam 0.25 MG TAB PO PRN; -ALPRAZolam 0.5 MG TAB PO PRN; -ASPIRIN 325 MG TAB PO STA; -ATORVASTATIN 80 MG TAB PO STA; +IODINE/POTASS IOD (LUGOLS) BOTTLE TOPICAL ONE; -NITROGLYCERIN SL TABS 0.4 MG TAB SUBLINGUAL PRN; -SODIUM CHLORIDE 0.9% 1,000 ML in EMPTY BAG 1 BAG IV ONE
--- NOTE | 2020-07-21 13:11 | MR ---
EXAMINATION TYPE: MR brain wo/w con DATE OF EXAM: 07/21/2020 11:42 AM COMPARISON: 05/31/2019 HISTORY: parkinson disease, memory loss FINDINGS: The ventricles, basal cisterns and sulci overlying the cerebral convexities are minimally minimally e nlarged. There is evidence of mild periventricular white matter ischemic demyelination. Remote deep white matter insults are also noted. No acute edema is seen on diffusion weighted imaging. There is no evidence for midline shift or mass effect. Acute intracranial hemorrhage or extra-axial collection is not evident. The paranasal sinuses and mastoid air cells are well-aerated. IMPRESSION: Age-related atrophic and chronic small vessel ischemic change. No acute intracranial process at this time.
== END | disposition home or self-care (01) ==
LOC: RADMRIMAIN 10:48
PROVIDERS: ATTEND Psychiatry & Neurology Neurology
DX: I67.82 Cerebral ischemia (principal); G31.1 Senile degeneration of brain, not elsewhere classified
CPT/HCPCS: 70553; A9585

== ENCOUNTER → 2021-04-27 | Outpatient (CLI) | payer OTHER ==
[2021-04-27 09:25] LABS: HCT 41.8 % (39.0-53.0); HGB 13.9 gm/dL (13.0-17.5); MCH 29.3 pg (25.0-35.0); MCHC 33.3 g/dL (31.0-37.0); MCV 87.9 fL (80.0-100.0); Platelet Count 214 k/uL (150-450); RBC 4.76 m/uL (4.30-5.90); RDW 13.4 % (11.5-15.5); WBC 9.7 k/uL (3.8-10.6)
[2021-04-27 10:35] LABS: Potassium 4.1 mmol/L (3.5-5.1)
== END | disposition home or self-care (01) ==
LOC: LABPAT 07:54
PROVIDERS: ATTEND Internal Medicine Interventional Cardiology
DX: Z01.812 Encounter for preprocedural laboratory examination (principal); R06.02 Shortness of breath
CPT/HCPCS: 80051; 82565; 84520; 85027

== ENCOUNTER 2021-09-13 10:16 | Day surgery (SDC) | payer OTHER ==
[2021-09-09 18:03] VITALS: BMI 32.4
[~2021-09-13 10:16] MED LIST changes: +ALPRAZolam 0.25 MG TAB PO PRN; +ALPRAZolam 0.5 MG TAB PO PRN; +ASPIRIN 325 MG TAB PO ONE; +ATORVASTATIN 80 MG TAB PO ONE; -IODINE/POTASS IOD (LUGOLS) BOTTLE TOPICAL ONE; +NITROGLYCERIN SL TABS 0.4 MG TAB SUBLINGUAL PRN; +SODIUM CHLORIDE 0.9% 1,000 ML in EMPTY BAG 1 BAG IV SCH
[2021-09-13] MEDS ORDERED: SODIUM CHLORIDE 0.9% 1,000 ML IV ONE (10:31)
[2021-09-13 10:54] VITALS: RESP 16; TEMP 97.9
[2021-09-13 10:54] LABS: Glucose,Whole Blood 256 mg/dL (75-99)
[2021-09-13] MEDS ORDERED: INSULIN ASPART (NovoLOG) 100 UNIT/ML VIAL SQ ONE (11:01)
[2021-09-13] MEDS ORDERED: LIDOCAINE 1% INJ 10MG/ML (20 ML MDV) ONE (11:47)
[2021-09-13] MEDS ORDERED: HEPARIN SODIUM 1,000 UN/ML (10ML VL) ONE (11:47)
[2021-09-13] MEDS ORDERED: LIDOCAINE 1% INJ 10MG/ML (20 ML MDV) SQ ONE (12:21)
[2021-09-13] MEDS ORDERED: MIDAZOLAM 2 MG/2 ML VIAL IV ONE ×2 (12:21)
[2021-09-13] MEDS ORDERED: fentaNYL (PF) 50 MCG/ML 2 ML AMP IV ONE (12:23)
[2021-09-13] MEDS ORDERED: fentaNYL (PF) 50 MCG/ML 2 ML AMP ONE (12:23)
[2021-09-13] MEDS ORDERED: IOPAMIDOL-370 125ML BTL INJ ONE (12:57)
[2021-09-13] MEDS ORDERED: RX INFO: IV CONTRAST WAS GIVEN 1 EACH MISC MISCELLANE PRN (13:04)
--- NOTE | 2021-09-13 13:12 | P.PCN ---
Date of Procedure: 09/13/21 Operative Findings: CARDIAC CATHETERIZATION PERFORMING PHYSICIAN: Cb Suh MD, RPVI PROCEDURE PERFORMED: 1. Selective right and left coronary angiogram 2. Left heart catheterization 3. CONNER to LAD angiogram 4. Radial artery to LCx angiogram 5. SVG to RCA angiogram 6. Selective right common femoral artery angiogram 7. Ultrasound guided access of the right common femoral artery INDICATION: This is a 56-year-old gentleman with CAD and prior CABG 3 with CONNER to LAD and radial artery to LCx as well as SVG to RCA as well as hypertension and dyslipidemia was experiencing shortness of breath with exertion. He underwent myocardial perfusion imaging stress is and that revealed anterior ischemia. In the light of that heart catheterization was advised COMPLICATION: None APPROACH: Right common femoral artery LEVEL OF SEDATION: Moderate with sedation length of 33 minutes PROCEDURE DESCRIPTION: After obtaining an informed consent, the patient was brought to cardiac senior laboratory technician. Local anesthesia was performed using lidocaine subcutaneously. The right common femoral artery was cannulated using Seldinger technique, under ultrasound guidance, the guidewire passed easily, following that we advanced a 6 [place] sheath dilator assembly, the wire and dilator were removed and sheath was flushed. Selective right and left coronary angiogram using a 6-[place] JR4 and JL catheters. The CONNER to LAD angiogram was performed using JR4 catheter. The radial to LCx angiogram was performed using LCB. The SVG to RCA angiogram was performed using a [place] right catheter Following that we did left heart catheterization using 6-[place] pigtail catheter. The procedure was completed there was no complication. SELECTIVE CORONARY ANGIOGRAM: The right coronary artery: Is diffusely diseased up to about 80-90% in the midportion long segment. Left main: Is calcified with disease up to about 80% distally. The left circumflex: Is calcified with a tight lesion in the proximal portion appears to be in the range of 80-90%. The left anterior descending artery: The LAD has a very tight lesion in the proximal to midportion. CORONARY BYPASSES ANGIOGRAM: The CONNER to LAD is patent The radial artery to LCx is patent. The LCx distal to distal anastomosis has a lesion appeared to be in the range of 40-50% The SVG to RCA is patent HEMODYNAMICS: The LVEDP was about 12 mmHg without significant gradient across aortic valve CONCLUSION: 1. Severe triple-vessel coronary artery disease 2. Patent CONNER to LAD. Patent radial artery to LCx with mild to moderate disease involving the LCx distally. Patent SVG to RCA 3. Normal left-sided filling pressure POSTPROCEDURE MANAGEMENT: Medical treatment and follow-up with a
[2021-09-13] MEDS ORDERED: SODIUM CHLORIDE 0.9% 1,000 ML IV SCH (13:15)
[2021-09-13] MEDS ORDERED: INSULIN ASPART (NovoLOG) 100 UNIT/ML VIAL SQ SCH (14:33)
[2021-09-13 20:15] VITALS: BP 141/85; PULSE 75
== END 2021-09-13 20:15 | disposition home or self-care (01) ==
LOC: CATHCVL 10:16
PROVIDERS: ATTEND Internal Medicine Interventional Cardiology
DX: I25.10 Atherosclerotic heart disease of native coronary artery without angina pectoris (principal); I10 Essential (primary) hypertension; J44.9 Chronic obstructive pulmonary disease, unspecified; E78.5 Hyperlipidemia, unspecified; E11.9 Type 2 diabetes mellitus without complications; I25.5 Ischemic cardiomyopathy; I34.0 Nonrheumatic mitral (valve) insufficiency; Z20.822 Contact with and (suspected) exposure to COVID-19; Z95.1 Presence of aortocoronary bypass graft; Z79.899 Other long term (current) drug therapy; Z79.4 Long term (current) use of insulin; Z79.82 Long term (current) use of aspirin; Z82.49 Family history of ischemic heart disease and other diseases of the circulatory system
CPT/HCPCS: 93459; 76937; 87635; C1760; C1894; C1769 ×2; J2250; J2001; J3010; Q9967